=== PATIENT | male | born 1940 | race Caucasian/White ===

== ENCOUNTER 2019-03-11 09:24 | Observation (INO) | payer MEDICARE ==
[~2019-03-11] VITALS: Ht 180.3 cm; Wt 91.5 kg
--- OUTSIDE RECORDS SUMMARY | ~2019-03-11 | XMS | Clinical Summary ---
Demographics + + + | Address | [address] | | | [place] [address] | + + + | Home Phone | | + + + | Preferred Language | Unknown | + + + | Marital Status | | + + + | Pentecostal Affiliation | 1077 | + + + | Race | Unknown | + + + | Ethnic Group | Unknown | + + + Author + + + | Author | [facility] | | | and [place]ana | + + + | Organization | [facility] | | | and [...] Team Providers + +------+ + | Care Career Technical Counselor Name | Role | Phone | + +------+ + | Ramon Mora DO | PP | Unavailable | + +------+ + Allergies + + + + + + | Active Allergy | Reactions | Severity | Noted | Comments | | | | | Date | | + + + + + + | Acetaminophen | Hives | | 1220 | | | | | | 12 [...] mg by mouth | | 0 | 09/ | | Activ | | (PRINIVIL, ZESTRIL) | Daily. | | | 320 | | e | | 20 mg tablet | | | | 12 | | | + + + +---------+------+------+-------+ | AEROCHAMBER Z-STAT | Use as directed. | | 0 | 05/1 | | Activ | | PLUS (AEROCHAMBER) | | | | 20 | | e | | MISC | [...] | 06/23 | | Activ | | (ZOCOR) 40 mg tablet | Daily. | | | 01/09 | | e | | | | [...] lungs 2 times | Inhaler | | 01/09 | | e | | l (SYMBICORT) [...] + + + + | Name | Dates Previously Given | Next Due | + + + [...] + +---------+ + | Alcohol Use | Drinks/We | oz/Week | Comments | | | ek | | | + + +---------+ + | No [...] recent travel history available. | + + Last Filed Vital Signs + + + + | Vital Sign | Reading | Time Taken | + + + + | Blood Pressure | 128/64 | 08/12/20151035 PDT | + + + + | Pulse | 82 | 08/12/20151035 PDT | + + + + | Temperature | 37 C (98.6 F) | 08/12/20151035 PDT | + + + + | Respiratory Rate | 16 | 08/12/20151035 PDT | + + + + | Oxygen Saturation | 96% | 08/12/20151035 PDT | + + + + | Inhaled Oxygen | - | - | | Concentration | | | + + + + | Weight | 96.6 kg (213 lb) | 08/12/20151035 PDT | + + + + | Height | 180.3 cm (5' 11") | 08/12/20151035 PDT | + + + + | Body Mass Index | 29.71 | 08/12/20151035 PDT | + + + + Plan of Treatment + + + + + | Health Maintenance | Due Date | Last Done | Comments | + + + + + | Vaccine: | | | | | Dtap/Tdap/Td (1 - | 8 | | | | Tdap) | | | | + + + + + | Vaccine: Zoster (1 | | | | | of 2) | 9 | | | + + + + + | Primary Care | | 08/12/2015, 01/21/2015, | | | Outreach (Intense | 6 | 07/24/2014, Additional history | | | Risk) | | exists | | + + + + + | Vaccine: Influenza | | 07/07/2014, 07/25/2013, | | | (Season Ended) | 9 | 07/12/2012 | | + + + + + | Vaccine: | Completed | 01/21/2015, 10/11/2009 | | | Pneumococcal 65+ | | | | | Low/Medium Risk | | | | + + + [...] +--------+ +---------+--------+ | MEDICARE | MEDICA | [id number] | 10/23/19 | [phone] | | Medica | | | RE | | 13-Pre | 5 | | re | | | PART A | | sent | | | | | | AND B | | | | | | + +--------+ +--------+ +---------+--------+ | [employer] | TRANSA | [id number] | 11/23/19 | | | Indemn | [...] | 11/06/ | | [address] | | | al/Fam | | 1941 | [phone] | [place] [address] | | | elizabeth | | | 9 (Home) | | + +--------+ +--------+ + + Advance Directives Patient has advance care planning documents on file. For more information, please contact:[facility] [address]
--- OUTSIDE RECORDS SUMMARY | ~2019-03-11 | XMS | Clinical Summary ---
Demographics + + + | Address | [address] | | | [place] [address] | + + + | Home Phone | | + + + | Preferred Language | Unknown | + + + | Marital Status | | + + + | Mandaen Affiliation | 1077 | + + + | Race | Unknown | + + + | Ethnic Group | Unknown | + + + Author + + + | Author | [facility] | | | and [place]ana | + + + | Organization | [facility] | | | and Shaneana [...] Team Providers + +------+ + | Care Vision Impaired Teacher Name | Role | Phone | [...] +--------+ +---------+--------+ | MEDICARE | MEDICA | [id number] | 10/23/19 | [phone] | | Medica | | | RE | | 13-Pre | 5 | | re | | | PART A | | sent | | | | | | AND B | | | | | | + +--------+ +--------+ +---------+--------+ | [employer] | TRANSA | [id number] | 11/23/19 | | | Indemn | [...] | 1941 | [phone] | [place] [address] | | | elizabeth | | | 9 (Home) | | + +--------+ +--------+ + + Advance Directives Patient has advance care planning documents on file. For more information, please contact:[facility] [place] [address]
--- OUTSIDE RECORDS SUMMARY | ~2019-03-11 | XMS | Clinical Summary ---
Demographics + + + | Address | [address] | | | [place] [address] | + + + | Home Phone | | + + + | Preferred Language | Unknown | + + + | Marital Status | | + + + | Yazidism Affiliation | 1077 | + + + | Race | Unknown | + + + | Ethnic Group | Unknown | + + + Author + + + | Author | [facility] | | | and [place]ana | + + + | Organization | [facility] | | | and Shaneana [...] Team Providers + +------+ + | Care Finishing Lab Technician Name | Role | Phone [...] +--------+ +---------+--------+ | MEDICARE | MEDICA | [id number] | 10/23/19 | [phone] | | Medica | | | RE | | 13-Pre | 5 | | re | | | PART A | | sent | | | | | | AND B | | | | | | + +--------+ +--------+ +---------+--------+ | [employer] | TRANSA | [id number] | 11/23/19 | | | Indemn | [...] | 1941 | [phone] | [place] [address] | | | elizabeth | | | 9 (Home) | | + +--------+ +--------+ + + Advance Directives Patient has advance care planning documents on file. For more information, please contact:[facility] [place] [address]
[~2019-03-11 09:24] MED LIST: ASPIRIN EC81 MG PO; CLINDAMYCIN HC150 MG PO; IPRAT-ALBUT 0.5-3 ML INH; LISINOPRIL20 MG PO; METOPROLOL SUCC25 MG PO; OFLOXACIN10 ML OS; PREDNISOLONE ACE5 ML OS; PROAIR HFA8.5 GM INH; SIMVASTATIN20 MG PO; SYMBICORT 16010.2 GM INH
--- NOTE | 2019-03-11 16:58 | NUR ---
New admit to the floor. Pt awake, alert and oriented x3. Pt transitioned to bed without difficulty. Pt denies sob and or chest pain. Pt reports sob with ambulation. VS taken and are stable. Pt denies needs at this time. Call light within reach. No needs.
--- NOTE | 2019-03-11 17:04 | NUR ---
Nikhilm patch declined by pt. He states "I do not want it".
--- NOTE | 2019-03-11 17:19 | EKG ---
[facility] [address] [place] [address] Signed Normal sinus rhythm Right bundle branch block Left anterior fascicular block Bifascicular block Septal infarct , age undetermined Cannot rule out Inferior infarct (masked by fascicular block?) , age undetermined Abnormal ECG No previous ECGs available Confirmed by MONTSERRAT MIRANDA MD ([id number]) on 03/11/2019 5:19:24 PM Electronically Signed By: MONTSERRAT MIRANDA MD 03/11/19 1719 PATIENT NAME: MARLON PRITCHETT Electrocardiogram DATE OF : 36 PHYSICIAN: MONTSERRAT MIRANDA MD REPORT #: [id number] REPORT IS CONFIDENTIAL AND NOT TO BE RELEASED WITHOUT AUTHORIZATION
[2019-03-11] MEDS ORDERED: SIMVASTATIN40 MG PO (17:51)
[2019-03-11] MEDS ORDERED: SYMBICORT 80-10.2 GM INH (17:53)
[2019-03-11] MEDS ORDERED: METOPROLOL TART25 MG PO (17:54)
--- NOTE | 2019-03-11 18:06 | NUR ---
PT A&OX3. PT ON RA. STANDBY ASSIST TO BATHROOM. BRTHING TX'S. TOLERATING HEART HEALTHY DIET. VOIDING Q/S. VS STABLE. SOB WITH AMBULATION.
--- NOTE | 2019-03-11 18:23 | NUR ---
VS AND I&O'S TAKEN AND DOCUMENTED. PT STATES THAT HE HAS NO NEEDS AT THIS TIME. INFORMED PT TO CALL IF HE NEEDS ANYTHING. CALL LIGHT IS IN REACH.
--- NOTE | 2019-03-11 18:33 | NUR ---
Medications reconciled with pharmacy records and patient interview. I verified that, although not typical, he does take metoprolol tartrate 25mg once daily
--- NOTE | 2019-03-11 19:00 | NUR ---
SHIFT REPORT RECEIVED. PATIENT RESTING IN RECLINER. APPEARS COMFORTABLE. CALL LIGHT IN REACH.
--- NOTE | 2019-03-11 21:12 | NUR ---
EVENING MEDS GIVEN PER ORDER. PATIENT DENIES FEELING SOB AT REST. LUNGS ARE COARSE AND DIM THROUGHOUT. O2 SAT 90% ON RA. ENOCURAGED COUGH AND DEEP BREATH. PATIENT DENIES PAIN OR GI UPSET. TOLERATING DIET. 1+ EDEMA NOTED IN LEANNE LOWER EXTREMITITES. REDNESS NOTED ON PATIENT'S LEFT EYE, HE DENIES DISCOMFORT. REVIEWED PLAN OF CARE. NO QUESTIONS OR NEEDS AT THIS TIME.
--- NOTE | 2019-03-12 00:10 | NUR ---
RT IN ROOM FOR NEB TREATMENT. PATIENT REPORTS HAVING BEEN SLEEPING OFF AND ON. DENIES ANY NEEDS.
--- NOTE | 2019-03-12 03:50 | NUR ---
PATIENT APPEARED TO BE SLEEPING SOUNDLY. WOKE EASILY TO VOICE. PATIENT DENIES FEELING SOB. LUNG SOUND CONTINUE TO BE COARSE THROUGHOUT. RT IN FOR SCHEDULED NEB TREATMENT. PATIENT DENIES ANY FURTHER NEEDS.
--- NOTE | 2019-03-12 05:52 | NUR ---
PATIENT SLEPT MOST OF THE SHIFT. VS STABLE. SCHEDULED NEBS. PATIENT TOLERATING ROOM AIR AT REST AND WITH AMBULATION IN THE ROOM. LUNGS ARE COARSE THROUGHOUT. NONPRODUCTIVE COUGH NOTED. NO PAIN. SBA FOR AMBULATION. IV SL.
--- NOTE | 2019-03-12 07:41 | NUR ---
Pt awake, alert and oriented x3. Pt denies sob and chest pain at this time. Pt is on ra, resp even and non labored. Personal supplies and call light within reach.
--- NOTE | 2019-03-12 08:02 | NUR ---
PATIENT UP TO CHAIR FOR BREAKFAST, SBA. CALL LIGHT IN REACH. NO FURTHER NEEDS AT THIS TIME.
--- NOTE | 2019-03-12 09:48 | NUR ---
PATIENT UP FOR WALK WITH DR. TULIO ALEXANDER GIVEN. CALL LIGHT IN REACH. NO FURTHER NEEDS AT THIS TIME.
[2019-03-12] MEDS ORDERED: AZITHROMYCIN500 MG PO (09:55)
[2019-03-12] MEDS ORDERED: PREDNISONE20 MG PO (09:56)
== END 2019-03-12 11:45 | disposition home or self-care (01) ==
LOC: ED 09:24 → MS 09:26
PROVIDERS: ADMIT Internal Medicine
DX: J44.1 Chronic obstructive pulmonary disease with (acute) exacerbation (principal); F17.210 Nicotine dependence, cigarettes, uncomplicated; I47.1 Supraventricular tachycardia; I10 Essential (primary) hypertension; E78.5 Hyperlipidemia, unspecified; I38 Endocarditis, valve unspecified; Z88.5 Allergy status to narcotic agent; Z88.1 Allergy status to other antibiotic agents; Z79.82 Long term (current) use of aspirin; Z79.51 Long term (current) use of inhaled steroids; Z79.899 Other long term (current) drug therapy
CPT/HCPCS: 71045; 80053; 83735; 83880; 84484; 85025; 93005; 93010; 94640; 94667; 94668; 96365; 96367; 96375; 96376; 99285-25; 99406; G0378; J0456; J0696; J2930; J7060

== ENCOUNTER 2019-04-26 18:19 | Emergency (ER) | payer MEDICARE, OTHER ==
[~2019-04-26] VITALS: Ht 180.3 cm; Wt 91.5 kg
[~2019-04-26 18:19] MED LIST changes: +AZITHROMYCIN500 MG PO; +METOPROLOL TART25 MG PO; +PREDNISONE20 MG PO; +SIMVASTATIN40 MG PO; +SYMBICORT 80-10.2 GM INH
[2019-04-26] MEDS ORDERED: OXYCODONE HCL5 MG PO (19:56)
== END 2019-04-26 20:13 | disposition home or self-care (01) ==
LOC: ED 18:19
DX: S20.221A Contusion of right back wall of thorax, initial encounter (principal); F17.200 Nicotine dependence, unspecified, uncomplicated; J44.9 Chronic obstructive pulmonary disease, unspecified; Z90.49 Acquired absence of other specified parts of digestive tract; Z88.5 Allergy status to narcotic agent; Z88.6 Allergy status to analgesic agent; Z88.1 Allergy status to other antibiotic agents; Z79.52 Long term (current) use of systemic steroids; Z79.82 Long term (current) use of aspirin; Z79.899 Other long term (current) drug therapy; W01.0XXA Fall on same level from slipping, tripping and stumbling without subsequent striking against object, initial encounter
CPT/HCPCS: 71046; 99283-25

== ENCOUNTER 2019-09-07 09:42 | Emergency (ER) | payer MEDICARE, OTHER ==
[~2019-09-07] VITALS: Ht 180.3 cm; Wt 87.9 kg
--- OUTSIDE RECORDS SUMMARY | ~2019-09-07 | XMS | Encounter Summary ---
Demographics + + + | Address | [address] | | | [place] [address] | + + + | Home Phone | | + + + | Preferred Language | Unknown | + + + | Marital Status | | + + + | Rastafari Affiliation | 1077 | + + + | Race | Unknown | + + + | Ethnic Group | Unknown | + + + Author + + + | Author | [facility] | | | and Shaneana | + + + | Organization | [facility] | | | and [place] | + + + | Address | Unknown | + + + | Phone | Unavailable | + + + Support + + +---------+ + | Name | Relationship | Address | Phone | + + +---------+ + | Jaciel Bright | ECON | Unknown | | + + +---------+ + Care Team Providers + +------+ + | Care City Surveyor Name | Role | Phone | + +------+ + | Ramon Mora DO | PCP | | + +------+ + Reason for Visit + + + | Reason | Comments | + + + | Follow-up | | + + + Encounter Details +--------+---------+ + + + | Date | Type | Department | Care Team | Description | +--------+---------+ + + + | 01/23/ | Office | [facility] [place] | [place], | COPD (chronic | | 2014 | Visit | PULMONARY [address] | Katherin Manrique MD | obstructive | | | | [place], | | pulmonary disease) | | | | [place] [address] | | (Primary Dx); | | | | [phone] | | Nocturnal hypoxemia; | | | | | | Polycythemia (HCC); | | | | | | Impaired fasting | | | | | | glucose; Tobacco | | | | | | abuse | +--------+---------+ + + + Social History + + + +--------+------+ | Tobacco Use | Types | Packs/Day | Years | Date | | | | | Used | | + + + +--------+------+ | Current Every Day | Cigarettes | 1.5 | 58 | | | Smoker | | | | | + + + +--------+------+ + +---+---+---+ | Smokeless Tobacco: | | | | | Never Used | | | | + +---+---+---+ + + | Comments: Smoking 1 ppd right now | + + + + +---------+ + | Alcohol Use | Drinks/Week | oz/Week | Comments | + + +---------+ + | No | | | | + + +---------+ + + + + | Sex Assigned at | Date Recorded | | | | + + + | Not on file | | + + + + + + + | Job Start Date | Occupation | Industry | + + + + | Not on file | Not on file | Not on file | + + + + + + + + | Travel History | Travel Start | Travel End | + + + + + + | No recent travel history available. | + + documented as of this encounter Last Filed Vital Signs + + + + + | Vital Sign | Reading | Time Taken | Comments | + + + + + | Blood Pressure | 160/58 | 01/23/2014 12:55 PM | | | | | PDT | | + + + + + | Pulse | 85 | 01/23/2014 12:55 PM | | | | | PDT | | + + + + + | Temperature | - | - | | + + + + + | Respiratory Rate | - | - | | + + + + + | Oxygen Saturation | 97% | 01/23/2014 12:55 PM | | | | | PDT | | + + + + + | Inhaled Oxygen | - | - | | | Concentration | | | | + + + + + | Weight | 96.7 kg (213 lb 3.2 | 01/23/2014 12:55 PM | | | | oz) | PDT | | + + + + + | Height | 180.3 cm (5' 11") | 01/23/2014 12:55 PM | | | | | PDT | | + + + + + | Body Mass Index | 29.74 | 01/23/2014 12:55 PM | | | | | PDT | | + + + + + documented in this encounter Patient Instructions Patient Instructions Katherin Madden MD - 01/23/2014 1:24 PM PDTStay on Symbicort t wice daily. Okay to switch nebulizer to as needed only if you are doing well. I agree with starting Chantix. If you are depressed or anxious, you need to stop the Chanti x immediately and call us. If you have suicidal thoughts, you need to go to the emergency ro om. You need to set a quit date about 2 weeks after starting this medication. On that day, you should plan on getting rid of everything in your house that reminds you of smoking, such as cigarettes and ashtrays. documented in this encounter Progress Notes Katherin Madden MD - 01/23/2014 1:10 PM PDTFormatting of this note might be tylere nt from the original. Pulmonary Follow Up HPI Louie Méndez is a 73 y.o. male patient of Ramon Mora here today for follow up of C OPD. At their last visit, we had continued him on Symbicort and Duonebs. He notes that he was do ing well until last week. His sister , and he had to make a hurried trip to [facility]. He is th only one in the family who smokes, and so he smoked significantly less. He walk ed about a mile every day. He used his nebulizer only about twice daily. He notes he felt re ally good. He assumes this is because he was smoking so little. He notes that every time he has spent a significant time around non smokers, he has not smo ked. When he does this, he has not had issues with needing to smoke. He also notes that when he is downstairs in his basement working, he does not have the desire to go upstairs to get his cigarettes to smoke one. Currently he is able to walk 1/2 mile, rest for a few minutes, and walk 1/2 mile further at his own pace on level ground. He is exercising regularly. He is typically walking regularly . He does not cough chronically, and does not produce mucous. He has not had hemoptysis. He has been evaluated for nocturnal oxygen and does not use it. His last overnight oximetry showed that he had some minimal desaturations, and I did recommend 1L at night, but he opte d to remain off this. Past Medical History Past Medical History Diagnosis Date COPD (chronic obstructive pulmonary disease) (HCC) Hyperlipidemia Hypertension Bundle branch block Tobacco use disorder Dyslipidemia Demand ischemia of myocardium (HCC) Supraventricular tachycardia severe Polycythemia (HCC) Past Surgical History Past Surgical History Procedure Date Appendectomy 2003 Colonoscopy Social History: History Social History Marital Status: Spouse Name: N/A Number of Children: N/A Years of Education: N/A Social History Main Topics Smoking status: Current Every Day Smoker -- 1.5 packs/day for 60 years Types: Cigarettes Smokeless tobacco: Never Used Comment: Smoking 1 ppd right now Alcohol Use: No Drug Use: None Sexually Active: None Other Topics Concern None Social History Narrative None Allergies: Allergies Allergen Reactions Acetaminophen Codeine Sulfate Hydrocodone Tramadol Medications: Outpatient Encounter Prescriptions as of 01/23/2014 Medication Sig Dispense Refill AEROCHAMBER Z-STAT PLUS (AEROCHAMBER) [facility] [place] Use as directed. albuterol (PROAIR HFA) 90 mcg/puff inhaler Inhale 2 puffs every 4 hours as needed for s hortness of breath 1 Inhaler 2 albuterol-ipratropium (DUONEB) 2.5-0.5 mg/3 mL SOLN Take 3 mLs by nebulization Every 4 hours. aspirin (ASPIRIN LOW DOSE) 81 MG tablet Take 81 mg by mouth Daily. budesonide-formoterol (SYMBICORT) 80-4.5 mcg/puff inhaler Inhale 2 puffs into the lungs 2 times daily. 1 Inhaler 5 Ibuprofen-Diphenhydramine Cit (IBUPROFEN PM) 200-38 MG TABS Take 2 tablets by mouth nig htly. lisinopril (PRINIVIL, ZESTRIL) 20 mg tablet Take 20 mg by mouth Daily. metoprolol tartrate (LOPRESSOR) 25 mg tablet Take 25 mg by mouth Daily. simvastatin (ZOCOR) 40 mg tablet Take 20 mg by mouth Daily. Review of Systems Constitutional: Denies fever, chills, sweats, and change in weight. Eyes: Denies vision change and eye irritation. ENT: Denies earache, decreased hearing, nasal congestion, nosebleeds, sore throat, and carolee rseness. Resp: See HPI. CV: Denies chest pain, palpitations, syncope, and peripheral edema. GI: Denies heartburn, nausea, vomiting, and abdominal pain. : Denies difficulty emptying bladder and nocturia. Objective BP 160/58 | Pulse 85 | Ht 1.803 m (5' 11") | Wt 96.707 kg (213 lb 3.2 oz) | BMI 29.75 kg/m2 | SpO2 97% General Appearance: Alert, cooperative, no distress, appears stated age Head: Normocephalic, without obvious abnormality, atraumatic Eyes: PERRL, conjunctiva clear, no scleral icterus, EOM's intact Ears: Normal TM's, external auditory canals, slightly diminished acuity Nose: Nares normal, septum midline, mucosa normal Mouth: No oral lesions or exudate Neck: Supple, symmetrical, no adenopathy Lungs: No accessory muscle use, breath sounds are diminished bilaterally with prolongatio n of the expiratory phase, no wheezes, crackles or rhonchi Chest Wall: No deformity Heart: Regular rate and rhythm, no murmur, rub or gallop Abdomen: Soft, non-tender, non-distended, obese Extremities: No cyanosis, clubbing, or edema Pulses: Radial pulses 2+ and symmetric Skin: Warm and dry Lymph nodes: Cervical and supraclavicular nodes normal Data: Overnight oximetry was done on room air on August 02, 2013 and was reviewed and interprete d in clinic today. It shows he spent 26.9 with a saturation less than 89 %. Labs 07/26/13: Fasting glucose 104 LFTs normal Hct 55 Immunization History Administered Date(s) Administered INFLUENZA, PRESERVATIVE FREE IM 07/12/2012, 07/25/2013 Pneumococcal (Adult) 10/11/2009 Assessment 1. COPD (chronic obstructive pulmonary disease) - Improved with smoking abatement. He is no w interested in quitting. We will continue Symbicort and can switch nebulizers to as needed. 2. Nocturnal hypoxemia (HCC) - Declined oxygen therapy. 3. Polycythemia (HCC) - Possibly related to his low oxygen at night, but this was fairly mi ld, and to his lung disease. I did fax results to Dr. Mora. 4. Impaired fasting glucose - This showed a minimal elevation. He is now starting to exerci se more. Further follow up with PCP. 5. Tobacco abuse- He very much wants to quit. We discussed strategies today. He will start Chantix and use these. Plan 1.ContinueSymbicort bid. 2.Change Duonebs to as needed. 3.I agree with starting Chantix. 4. He should set a firm quit date and get rid of all smoking related items items on that da te. 5. We discussed reviewing his habits and changing them. He was advised to call if new pulmonary symptoms were to develop. Return to clinic in 6 months, or sooner with concerns. CC: Ramon Mora Portions of this report were transcribed using voice recognition software. Every effort wa s made to ensure accuracy; however, inadvertent computerized canceling and cutting control clerk errors may be pre sent. Electronically signed by: Katherin Madden MD 01/23/2014 13:10 documented in t his encounter Plan of Treatment Not on filedocumented as of this encounter Visit Diagnoses + + | Diagnosis | + + | COPD (chronic obstructive pulmonary disease) - Primary Chronic airway obstruction, | | not elsewhere classified | + + | Nocturnal hypoxemia Hypoxemia | + + | Polycythemia Polycythemia vera | + + | Impaired fasting glucose | + + | Tobacco abuse Tobacco use disorder | + + documented in this encounter
--- OUTSIDE RECORDS SUMMARY | ~2019-09-07 | XMS | Encounter Summary ---
Demographics + + + | Address | [address] | | | [place] [address] | + + + | Home Phone | | + + + | Preferred Language | Unknown | + + + | Marital Status | | + + + | Evangelical Affiliation | 1077 | + + + | Race | Unknown | + + + | Ethnic Group | Unknown | + + + Author + + + | Author | [facility] | | | and [place]ana | + + + | Organization | [facility] | | | and [place]ana [...] Team Providers + +------+ + | Care Thermal Cutting Machine Operator Name | Role | Phone | + +------+ + | Ramon Mora DO | PCP | | + +------+ + Encounter Details +--------+ + + + + | Date | Type | Department | Care Team | Description | +--------+ + + + + | 10/26/ | Orders Only | [facility] [place] | Aracelis Muir, | COPD (chronic | | 2012 | | PULMONARY [address] | RN | obstructive | | | | [place], | | pulmonary disease) | | | | [place] [address] | | ([facility]) | | | | [phone] | | | +--------+ + + + + Social History + + + +--------+------+ | Tobacco Use | Types | Packs/Day | Years | Date | | | | | Used | | + + + +--------+------+ | Current Every Day | Cigarettes | 0.2 | 58 | | | Smoker | | | | | + + + +--------+------+ + +---+---+---+ | Smokeless Tobacco: | | | | | Never Used | | | | + +---+---+---+ + + | Comments: down to 3 cigarettes per day | + + + + +---------+ + | Alcohol Use | Drinks/Week | oz/Week | Comments | + + +---------+ + | Not Asked | | | | + + +---------+ [...] + + documented as of this encounter Plan of Treatment Not on filedocumented as of this encounter Visit Diagnoses + + | Diagnosis | + + | COPD (chronic obstructive pulmonary disease) (HCC) Chronic airway obstruction, not | | elsewhere classified | + + documented in this encounter"
--- OUTSIDE RECORDS SUMMARY | ~2019-09-07 | XMS | Encounter Summary ---
Demographics + + + | Address | [address] | | | [place] [address] | + + + | Home Phone | | + + + | Preferred Language | Unknown | + + + | Marital Status | | + + + | Anabaptism Affiliation | 1077 | + + + | Race | Unknown | + + + | Ethnic Group | Unknown | + + + Author + + + | Author | [facility] | | | and Shaneana | + + + | Organization | [facility] | | | and Shaneana [...] Team Providers + +------+ + | Care Animal Researcher Name | Role | Phone | + [...] Description | +--------+---------+ + + + | 10/11/ | Office | [facility] | [place], | COPD (chronic | | 2011 | Visit | PULMONARY [address] | Katherin Manrique MD | obstructive | | | | [place], | | pulmonary disease) | | | | [place] [address] | | (HCC) (Primary Dx); | | | | [phone] | | Tobacco abuse; | | | | | | Snoring; Hypoxemia | +--------+---------+ + + + Social History [...] | | + +---+---+---+ + + | Tobacco Cessation: Ready to Quit: Yes; Counseling Given: Yes | | Comments: down to 3 cigarettes per [...] + + + | Blood Pressure | 140/60 | 10/11/2012 11:05 AM | | | | | PST | | + + + + + | Pulse | 89 | 10/11/2012 11:05 AM | | | | | PST | | + + + + + | Temperature | - | - | | + + + + + | Respiratory Rate | - | - | | + + + + + | Oxygen Saturation | 98% | 10/11/2012 11:05 AM | | | | | PST | | + + + + + | Inhaled Oxygen | - | - | | | Concentration | | | | + + + + + | Weight | 104.3 kg (230 lb) | 10/11/2012 11:05 AM | | | | | PST | | + + + + + | Height | 181.6 cm (5' 11.5") | 10/11/2012 11:05 AM | | | | | PST | | + + + + + | Body Mass Index | 31.63 | 10/11/2012 11:05 AM | | | | | PST | | + + + + + documented in this encounter Patient Instructions Patient Instructions Katherin Madden MD - 10/11/2012 12:07 PM Gamaliel Alexander to fo ur time a day as needed only. Start Advair 1 puff twice a day scheduled. Rinse mouth out after use. HOW TO QUIT SMOKING Smoking is one of the hardest habits to break. About half of all those who have ever smoked have been able to quit, and most of those (about 70%) who still smoke want to quit. Here ar e some of the best ways to stop smoking. KEEP TRYING: It takes most smokers about 8 tries before they are finally able to fully quit. So, the mor e often you try and fail, the better your chance of quitting the next time! So, don't give u p! GO COLD TURKEY: Most ex-smokers quit cold turkey. Trying to cut back gradually doesn't seem to work as well , perhaps because it continues the smoking habit. Also, it is possible to fool yourself by i nhaling more while smoking fewer cigarettes. This results in the same amount of nicotine in your body! GET SUPPORT: Support programs can make an important difference, especially for the heavy smoker. These g roups offer lectures, methods to change your behavior and peer support. Call the [facility] Quitline for more information. 549-RATU-YLT (385-904-2496). Low-cost or free programs are offered by many hospitals, local chapters of the [place] [employer] (799-172-9437) a nd the [place] [employer] (702-252-9808). Support at home is important too. Non-smokers can help by offering praise and encouragement. If the smoker fails to quit, encourage them to try again! NIAY-FBR-DBNIYQL MEDICINES: For those who can't quit on their own, Nicotine Replacement Therapy (NRT) may make quitting much easier. Certain aids such as the nicotine patch, gum and lozenge are available without a prescription. However, it is best to use these under the guidance of your doctor. The ski n patch provides a steady supply of nicotine to the body. Nicotine gum and lozenge gives tem porary bursts of low levels of nicotine. Both methods take the edge off the craving for ciga rettes. WARNING: If you feel symptoms of nicotine overdose, such as nausea, vomiting, dizzin ess, weakness, or fast heartbeat, stop using these and see your doctor. PRESCRIPTION MEDICINES: After evaluating your smoking patterns and prior attempts at quitting, your doctor may offe r a prescription medicine such as bupropion (Zyban, Wellbutrin), varenicline (Chantix, [place] ix), a niocotine inhaler or nasal spray. Each has its unique advantage and side effects whic h your doctor can review with you. HEALTH BENEFITS OF QUITTING: The benefits of quitting start right away and keep improving the longer you go without smok in minutes: blood pressure and pulse return to normal 8 hours: oxygen levels return to normal 2 days: ability to smell and taste begins to improve as damaged nerves start to regrow 2-3 weeks: circulation and lung function improves 1-9 months: decreased cough, congestion and shortness of breath; less tired 1 year: risk of heart attack decreases by half 5 years: risk of lung cancer decreases by half; risk of stroke becomes the same as a non -smoker For information about how to quit smoking, visit the following links: National Cancer [place] , Clearing the Air, Quit Smoking Today - an online yu klet. http://www.smokefree.gov/pubs/clearing_the_air.pdf Smokefree.gov http://smokefree.gov/ QuitNet http://www.quitnet.com/ 6390-3703 Manuel Garcia, [address] [place] [address]. All rights reserve d. This information is not intended as a substitute for professional medical care. Always fo llow your healthcare professional's instructions. documented in this encounter Progress Notes Katherin Madden MD - 10/11/2012 11:38 AM PSTFormatting of this note might be differe nt from the original. Pulmonary Follow Up Note HPI Louie Méndez is a 71 y.o. male patient of Ramon Mora here today for follow up of C OPD. He was recently hospitalized at [facility] for 2 days and was discharged on Sep. He has not been seen here in about 2 years, but was arranged to be seen in [facility] after his discharge. He reports that he is doing great since his discharge and is back to his baseline state. He had not followed up due to his having recurrent cancer. He was discharged on oxygen, which was new to him. He was taken off of the daytime oxygen b amber Davison yesterday. He was not walked in clinic yesterday by Dr. Davison or his staff to see if he desaturated with exertion. He was apparently left on nocturnal oxygen only. He guillermo arently did not write an order to the home oxygen company, which is [employer]. He also apparen tly stopped his diltiazem, and decreased his metoprolol dose. He reports that he is not on prednisone and off of the antibiotics. He is still on the nebu lizer, which is Duonebs, and is using this every 4 hours. He is not using his Combivent sabra use he realized that this is the same medication. He was using both about 2 hours apart. He has stopped using the Pulmicort because he did not feel like that was helping him. He used i t for a year previously. He does have prescription coverage, but reports that he is in the onwv hole right now. Currently they are able to walk a couple hundred feet at their own pace on level ground. He is exercising regularly. He does stay active at home doing the housework. He does have some type of exercise equipment at home that he will use a few times a week for 15-30 minutes. He does cough chronically, and does produce mucous. He does not pay attention to the color. He has not had hemoptysis. He has not been evaluated for nocturnal oxygen and does use it. They are currently on 2 LPM at night. He reports good compliance. He has not had an overnight oximetry done. He is down to three cigarettes a day. He is planning to use the patches to quit. He notes t he generic patches at [facility] work well for him. He notes that this brand does not give him a rash. Past Medical History Past Medical History Diagnosis Date COPD (chronic obstructive pulmonary disease) Hyperlipidemia Hypertension Bundle branch block Tobacco use disorder Dyslipidemia Demand ischemia of myocardium Supraventricular tachycardia severe Past Surgical History Past Surgical History Procedure Date Appendectomy 2004 Colonoscopy Social History: History Social History Marital Status: Spouse Name: N/A Number of Children: N/A Years of Education: N/A Social History Main Topics Smoking status: Current Everyday Smoker -- 0.2 packs/day for 60 years Types: Cigarettes Smokeless tobacco: Never Used Comment: down to 3 cigarettes per day Alcohol Use: None Drug Use: None Sexually Active: None Other Topics Concern None Social History Narrative None Allergies: Allergies Allergen Reactions Acetaminophen Codeine Sulfate Hydrocodone Tramadol Medications: Outpatient Encounter Prescriptions as of 10/11/2012 Medication Sig Dispense Refill metoprolol tartrate (LOPRESSOR) 25 mg tablet Take 25 mg by mouth Daily. albuterol-ipratropium (DUONEB) 2.5-0.5 mg/3 mL SOLN Take 3 mLs by nebulization Every 4 hours. albuterol-ipratropium (COMBIVENT) 103-18 mcg/puff inhaler Inhale 2 puffs into the lungs every 6 hours as needed. simvastatin (ZOCOR) 40 mg tablet Take 20 mg by mouth Daily. aspirin (ASPIRIN LOW DOSE) 81 MG tablet Take 81 mg by mouth Daily. lisinopril (PRINIVIL, ZESTRIL) 20 mg tablet Take 20 mg by mouth Daily. AEROCHAMBER Z-STAT PLUS (AEROCHAMBER) MISC Use as directed. Review of Systems Constitutional: Denies fever, chills, sweats, and change in weight. Sleep: He is not sure is he is snoring a lot. Eyes: Denies vision change and eye irritation. ENT: Denies earache, decreased hearing, nasal congestion, nosebleeds, sore throat, and ho arseness. Resp: See HPI. CV: Denies chest pain, palpitations, and syncope. Has some ankle edema. GI: Denies heartburn, nausea, vomiting, and abdominal pain. : Denies difficulty emptying bladder and nocturia. Objective BP 140/60 | Pulse 89 | Ht 1.816 m (5' 11.5") | Wt 104.327 kg (230 lb) | BMI 31.63 kg/m2 | S pO2 98% General Appearance: Alert, cooperative, no distress, appears stated age Head: Normocephalic, without obvious abnormality, atraumatic Eyes: PERRL, conjunctiva clear, no scleral icterus, EOM's intact Ears: Normal TM's, external auditory canals, and acuity Nose: Nares normal, septum midline, mucosa normal, no drainage Mouth: Normal dentition; no oral lesions or exudate Neck: Supple, symmetrical, no adenopathy Lungs: No accessory muscle use, breath sounds are diminished bilaterally with prolongatio n of the expiatory phase, no wheezes, crackles or rhonchi Chest Wall: No deformity Heart: Regular rate and rhythm, no murmur, rub or gallop Abdomen: Soft, non-tender, non-distended, obese Extremities: No cyanosis, clubbing, or edema Pulses: Radial pulses 2+ and symmetric Skin: Warm and dry Lymph nodes: Cervical and supraclavicular nodes normal Neurologic: Gait normal Data: Up to date on influenza and pneumococcal vaccine. Assessment /Plan Mr. Méndez was seen today for follow-up of COPD after recent admission for an exacerbatio n. Copd (chronic obstructive pulmonary disease) He had a recent exacerbation after being off all of his medications. He did not notice symp tomatic improvement after a year of Pulmicort and thus got frustrated and discontinued the m edication. We had run in to issues getting Advair approved by his insurance previously. I di scussed the importance of remaining on long acting medication to prevent exacerbations such as he just had. If we cannot get Advair approved this time, we can try to get him Spiriva. I have prescribed Advair as this will provide him decreased exacerbations and also symptomati c relief, though Spiriva should also provide him similar benefits. I also discussed using the Combivent and Duoneb four times a day in combination and no more often. - Pulse oximetry titation; Future - Pulse oximetry, overnight study; Future - fluticasone-salmeterol (FLUTICASONE-SALMETEROL) 250-50 mcg/puff diskus inhaler; Inhal e 1 puff into the lungs 2 times daily. Tobacco abuse We discussed the importance of smoking cessation in clinic today. He is more motivated to q uit smoking after his recent hospitalization and is down to minimal smoking at this point. I encouraged use of a cessation aid, and he does plan to use nicotine patches. Snoring He has a history of smoking, but has declined a sleep study due to financial issues and oanh ng overwhelmed with his 's health problems. We will continue to hold off for now. Hypoxemia His portable oxygen was verbally discontinued based on a good resting saturation. We will p erform ambulating oximetry to ensure that he is not desaturating with exertion and also perf orm overnight oximetry on room air as he will need this to qualify for nocturnal oxygen if h is portable oxygen is discontinued. Return to clinic in 3 months. CC: Ramon Mora DO, Shamir Mcnair MD documented in t his encounter Plan of Treatment + + +--------+ + + | Name | Type | Priori | Associated Diagnoses | Order Schedule | | | | ty | | | + + +--------+ + + | Pulse oximetry | Respiratory | Routin | COPD (chronic | 1 Occurrences | | titation | Care | e | obstructive | starting 10/11/2012 | | | | | pulmonary disease) | until 10/11/2013 | | | | | (HCC) | | + + +--------+ + + | Pulse oximetry, | Respiratory | Routin | COPD (chronic | Expected: | | overnight study | Care | e | obstructive | 10/12/2012, Expires: | | | | | pulmonary disease) | 10/11/2013 | | | | | (HCC) | | + + +--------+ + + | Oxygen Therapy | Respiratory | Routin | COPD (chronic | Expected: | | | Care | e | obstructive | 10/16/2012, Expires: | | | | | pulmonary disease) | 10/16/2013 | | | | | (HCC) | | + + +--------+ + + documented as of this encounter Visit Diagnoses + + | Diagnosis | + + | COPD (chronic obstructive pulmonary disease) (HCC) - Primary Chronic airway | | obstruction, not elsewhere classified | + + | Tobacco abuse Tobacco use disorder | + + | Snoring Other dyspnea and respiratory abnormality | + + | Hypoxemia | + + documented in this encounter
--- OUTSIDE RECORDS SUMMARY | ~2019-09-07 | XMS | Encounter Summary ---
Demographics + + + | Address | [address] | | | [place] [address] | + + + | Home Phone | | + + + | Preferred Language | Unknown | + + + | Marital Status | | + + + | Sabianism Affiliation | 1077 | + + + | Race | Unknown | + + + | Ethnic Group | Unknown | + + + Author + + + | Author | [facility] | | | and Shaneana | + + + | Organization | [facility] | | | and Shaneana | [...] Team Providers + +------+ + | Care Stamping Die Maker Name | Role | Phone | + +------+ + | Ramon Mora DO | PCP | | + +------+ + Reason for Visit + + + | Reason | Comments | + + + | Medication Refill | | + + + Encounter Details +--------+--------+ + + + | Date | Type | Department | Care Team | Description | +--------+--------+ + + + | 06/25/ | Refill | [facility] [place] | [place], | Medication Refill | | 2014 | | [address]ULMONARY [address] | Katherin Manrique MD | | | | | [place], | | | | | | [place] [address] | | | | | | [phone] | | | +--------+--------+ + + + [...]
--- OUTSIDE RECORDS SUMMARY | ~2019-09-07 | XMS | Encounter Summary ---
Demographics + + + | Address | [address] | | | [place] [address] | + + + | Home Phone [...] + + | Author | [facility] | | | and Shaneana | + + + | Organization | [facility] | | | and Shaneana [...] Team Providers + +------+ + | Care Gauger Chief Name | Role | Phone | + +------+ + | Ramon Mora DO | PCP | | + +------+ + Encounter Details +--------+ + + + + | Date | Type | Department | Care Team | Description | +--------+ + + + + | 11/26/ | Documentati | [facility] [place] | [place], | | | 2012 | on | PULMONARY [address] | Katherin Manrique MD | | | | | [place], | | | | | | [place] [address] | | | | | | [phone] | | | +--------+ + + + [...] + + documented as of this encounter Progress Notes Aracelis Muir, RN - 11/26/2012 2:30 PM PSTAs the insurance advised that they would onl y provide a temporary supply of Advair 250/[address] Madden will change to Symbicort 80 mcg 2 puffs inhaled twice daily 1 month supply and 5 refills. documented in this encounter Plan of Treatment Not on filedocumented as of this encounter Visit Diagnoses Not on filedocumented in this encounter"
--- OUTSIDE RECORDS SUMMARY | ~2019-09-07 | XMS | Encounter Summary ---
Demographics + + + | Address | [address] | | | [place] [address] | + + + | Home Phone | | + + + | Preferred Language | Unknown | + + + | Marital Status | | + + + | Jain Affiliation | 1077 | + + + | Race | Unknown | + + + | Ethnic Group | Unknown | + + + Author + + + | Author | [facility] | | | and Shaneana | + + + | Organization | [facility] | | | and Shaneana | [...] Team Providers + +------+ + | Care Dental Lab Technician Name | Role | Phone | + [...] Description | +--------+--------+ + + + | 08/06/ | Refill | [facility] [place] | [place], | Medication Refill | | 2013 | | [address]ULMONARY [address] | Katherin Manrique MD | | | | | [place], | | | | | | [place] [address] | | | | | | [phone] | | | +--------+--------+ + + + [...]
--- OUTSIDE RECORDS SUMMARY | ~2019-09-07 | XMS | Encounter Summary ---
Demographics + + + | Address | [address] | | | [place] [address] | + + + | Home Phone | | + + + | Preferred Language | Unknown | + + + | Marital Status | | + + + | Temple Affiliation | 1077 | + + + | Race | Unknown | + + + | Ethnic Group | Unknown | + + + Author + + + | Author | [facility] | | | and Shaneana | + + + | Organization | [facility] | | | and Shaneana | [...] Team Providers + +------+ + | Care Dishwasher Name | Role | Phone | + [...] Description | +--------+--------+ + + + | 02/27/ | Refill | [facility] [place] | [place], | Medication Refill | | 2012 | | [address]ULMONARY [address] | Katherin Manrique MD | | | | | [place], | | | | | | [place] [address] | | | | | | [phone] | | | +--------+--------+ + + + Social History + + + +--------+------+ | Tobacco Use | Types | Packs/Day | Years | Date | | | | | Used | | + + + +--------+------+ | Current Every Day | Cigarettes | 0.6 | 60 | | | Smoker | | | | | + + + +--------+------+ + +---+---+---+ | Smokeless Tobacco: | | | | | Never Used | | | | + +---+---+---+ + + | Comments: He has been smoking some. | + + + + +---------+ + [...]
--- OUTSIDE RECORDS SUMMARY | ~2019-09-07 | XMS | Encounter Summary ---
Demographics + + + | Address | [address] | | | [place] [address] | + + + | Home Phone | | + + + | Preferred Language | Unknown | + + + | Marital Status | | + + + | Buddhism Affiliation | 1077 | + + + | Race | Unknown | + + + | Ethnic Group | Unknown | + + + Author + + + | Author | [facility] | | | and Shaneana | + + + | Organization | [facility] | | | and Shaneana | [...] Providers + +------+ + | Care Wood Products Manufacturer Name | Role | Phone | + +------+ + PCP | Unavailable | + +------+ + Encounter Details +--------+ + + + + | Date | Type | Department | Care Team | Description | +--------+ + + + + | 07/05/ | Abstract | [facility] | [facility] | | | 2011 | | Conversion Location | SR | | | | | [phone] | | | +--------+ + + + + Social History + +-------+ +--------+------+ | Tobacco Use | Types | Packs/Day | Years | Date | | | | | Used | | + +-------+ +--------+------+ | Never Assessed | | | | | + +-------+ +--------+------+ + + + | Sex Assigned at [...] + + + | Blood Pressure | 136/72 | 06/28/2011 12:00 AM | | | | | PDT | | + + + + + | Pulse | - | - | | + + + + + | Temperature | - | - | | + + + + + | Respiratory Rate | - | - | | + + + + + | Oxygen Saturation | - | - | | + + + + + | Inhaled Oxygen | - | - | | | Concentration | | | | + + + + + | Weight | 99.8 kg (220 lb) | 06/28/2011 12:00 AM | | | | | PDT | | + + + + + | Height | 181.6 cm (5' 11.5") | 02/28/2011 12:00 AM | | | | | PDT | | + + + + + | Body Mass Index | 30.26 | 02/28/2011 12:00 AM | | | | | PDT | | + + + + + documented in this encounter Plan of Treatment Not on filedocumented as of this encounter Visit Diagnoses Not on filedocumented in this encounter
--- OUTSIDE RECORDS SUMMARY | ~2019-09-07 | XMS | Encounter Summary ---
Demographics + + + | Address | [address] | | | [place] [address] | + + + | Home Phone | | + + + | Preferred Language | Unknown | + + + | Marital Status | | + + + | Druze Affiliation | 1077 | + + + | Race | Unknown | + + + | Ethnic Group | Unknown | + + + Author + + + | Author | [facility] | | | and [place]ana | + + + | Organization | [facility] | | | and [...] Team Providers + +------+ + | Care Business Analysis Consultant Name | Role | Phone | + [...] Manrique MD | | | | | [place], | | | | | | [place] [address] | | | | | | [phone] | | | +--------+--------+ + + + [...]
--- OUTSIDE RECORDS SUMMARY | ~2019-09-07 | XMS | Encounter Summary ---
Demographics + + + | Address | [address] | | | [place] [address] | + + + | Home Phone | | + + + | Preferred Language | Unknown | + + + | Marital Status | | + + + | Scientologist Affiliation | 1077 | + + + | Race | Unknown | + + + | Ethnic Group | Unknown | + + + Author + + + | Author | [facility] | | | and [place] | + + + | Organization | [facility] | | | and [place] [...] Team Providers + +------+ + | Care Software Project Lead Name | Role | Phone | + [...] MD | obstructive | | | | [place], | | pulmonary disease) | | | | [place] [address] | | (HCC) (Primary Dx); | | | | [phone] | | Tobacco abuse; | | | [...] your behavior and peer support. Call the [facility] Quitline for more information. 777-IATQ-WCS ([phone]). Low-cost or free programs are offered by many hospitals, local chapters of the [place] [employer] (934-320-1927) a nd the [place] [employer] (540-564-0488). Support at home is important too. Non-smokers can help by offering praise and encouragement. If the smoker fails to quit, encourage them to try again! XAWE-ITW-BRJTKBC MEDICINES: For those who can't quit on [...] such as bupropion (Zyban, Wellbutrin), varenicline (Chantix, [place] ix), a niocotine inhaler or nasal spray. [...] smoking, visit the following links: National Cancer [place] , Clearing the Air, Quit Smoking Today - an online yu klet. http://www.smokefree.gov/pubs/clearing_the_air.pdf Smokefree.gov http://smokefree.gov/ QuitNet http://www.quitnet.com/ 8992-4264 Manuel Garcia, [address] [place] [address]. All rights reserve d. This information is [...] C OPD. He was recently hospitalized at [facility] for 2 days and was discharged on Sep. He has not been seen here in about 2 years, but was arranged to be seen in [facility] after his discharge. He reports that he [...] to the home oxygen company, which is [employer]. He also apparen tly stopped his diltiazem, [...] but reports that he is in the ondc hole right now. Currently they are able [...] He notes t he generic patches at [facility] work well for him. He notes that [...]
--- OUTSIDE RECORDS SUMMARY | ~2019-09-07 | XMS | Encounter Summary ---
Demographics + + + | Address | [address] | | | [place] [address] | + + + | Home Phone | | + + + | Preferred Language | Unknown | + + + | Marital Status | | + + + | Islam Affiliation | 1077 | + + + | Race | Unknown | + + + | Ethnic Group | Unknown | + + + Author + + + | Author | [facility] | | | and Sahneana | + + + | Organization | [facility] | | | and Shaneana [...] Team Providers + +------+ + | Care Sleeve Sewer Name | Role | Phone | + [...] RN | obstructive | | | | [place], | | pulmonary disease) | | | | [place] [address] | | ([facility]) | | | | [phone] | | | +--------+ + + + [...]
--- OUTSIDE RECORDS SUMMARY | ~2019-09-07 | XMS | Encounter Summary ---
Demographics + + + | Address | [address] | | | [place] [address] | + + + | Home Phone | | + + + | Preferred Language | Unknown | + + + | Marital Status | | + + + | Nondenominational Affiliation | 1077 | + + + | Race | Unknown | + + + | Ethnic Group | Unknown | + + + Author + + + | Author | [facility] | | | and Shaneana | + + + | Organization | [facility] | | | and Shaneana [...] Team Providers + +------+ + | Care Twister Tender Paper Name | Role | Phone | + [...] Description | +--------+--------+ + + + | 02/15/ | Refill | [facility] [place] | Offenstein, | Medication Refill | | 2016 | | [address]MON[address] | Katherin Manrique MD | | | | | [place], | | | | | | [place] [address] | | | | | | [phone] | | | +--------+--------+ + + + [...]
--- OUTSIDE RECORDS SUMMARY | ~2019-09-07 | XMS | Encounter Summary ---
Demographics + + + | Address | [address] | | | [place] [address] | + + + | Home Phone | | + + + | Preferred Language | Unknown | + + + | Marital Status | | + + + | Sabianist Affiliation | 1077 | + + + | Race | Unknown | + + + | Ethnic Group | Unknown | + + + Author + + + | Author | [facility] | | | and Shaneana | + + + | Organization | [facility] | | | and [...] Team Providers + +------+ + | Care Skin Drier Name | Role | Phone | + [...] + + | 08/12/ | Office | [facility] | [place], | COPD (chronic | | 2014 | Visit | [address]ULMONARY [address] | Katherin Manrique MD | obstructive | | | | [place], | | pulmonary disease); | | | | [place] [address] | | 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 He is not exercising regularl y. He did some walking when he went to his niece's wedding. He has done some walking, but no t as much as he would like due to the heat this summer. He has started doing some more walki now that the weather is better. He does not cough chronically, and does not produce mucous. He has not had hemoptysis. He has been evaluated for nocturnal oxygen and does not use it. He has declined this. He quit smoking again 2 weeks ago after having relapsed again. He also travelled to [place] for his niece's wedding and did not [...] None Social History Narrative Lives alone in [place]. His in 2012 from cancer. Allergies: Allergies [...] 492.8 He has qualified for oxygen at [facility] and declines this. G47.36 327.26 3. 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 Plan 1.Continue Symbicort [...] made to ensure accuracy; however, inadvertent computerized boat mechanic errors may be pre sent. Electronically signed [...]
--- OUTSIDE RECORDS SUMMARY | ~2019-09-07 | XMS | Encounter Summary ---
Demographics + + + | Address | [address] | | | [place] [address] | + + + | Home Phone | | + + + | Preferred Language | Unknown | + + + | Marital Status | | + + + | Jew Affiliation | 1077 | + + + | Race | Unknown | + + + | Ethnic Group | Unknown | + + + Author + + + | Author | [facility] | | | and Shaneana | + + + | Organization | [facility] | | | and [...] Team Providers + +------+ + | Care Vinyl Dipper Name | Role | Phone | + +------+ + | Ramon Mora DO | PCP | | + +------+ + Encounter Details +--------+ + + + + | Date | Type | Department | Care Team | Description | +--------+ + + + + | 07/29/ | Orders Only | [facility] | Omarenstein, | Chronic airway | | 2012 | | [address]ULMON[address] | Katherin Manrique MD | obstruction, not | | | | [place], | | elsewhere classified | | | | [place] [address] | | ([facility]) (Primary Dx) | | | | [phone] | | | +--------+ + + + [...] as of this encounter Plan of Treatment + + +--------+ + + | Name | Type | Priori | Associated Diagnoses | Order Schedule | | | | ty | | | + + +--------+ + + | Pulse oximetry, | Respiratory | Routin | Chronic airway | Expected: | | overnight study | Care | e | obstruction, not | 07/29/2013, Expires: | | | | | elsewhere classified | 07/29/2014 | | | | | (HCC) | | + + +--------+ + + documented as of this encounter Visit Diagnoses + + | Diagnosis | + + | Chronic airway obstruction, not elsewhere classified - Primary | + + documented in this encounter"
--- OUTSIDE RECORDS SUMMARY | ~2019-09-07 | XMS | Encounter Summary ---
Demographics + + + | Address | [address] | | | [place] [address] | + + + | Home Phone | | + + + | Preferred Language | Unknown | + + + | Marital Status | | + + + | Presybeterian Affiliation | 1077 | + + + | Race | Unknown | + + + | Ethnic Group | Unknown | + + + Author + + + | Author | [facility] | | | and Shaneana | + + + | Organization | [facility] | | | and Shaneana | [...] Team Providers + +------+ + | Care Shredded Filler Machine Wrapper Layer Name | Role | Phone | + +------+ + | Ramon Mora DO | PCP | | + +------+ + Encounter Details +--------+ + + + + | Date | Type | Department | Care Team | Description | +--------+ + + + + | 08/02/ | Orders Only | [facility] [place] | Aracelis Muir, | Chronic airway | | 2012 | | [address]MON[address] | RN | obstruction, not | | | | [place], | | elsewhere classified | | | | [place] [address] | | (HCC) | | | | [phone] | | | +--------+ + + + [...] | Chronic airway obstruction, not elsewhere classified | + + documented in this encounter"
--- OUTSIDE RECORDS SUMMARY | ~2019-09-07 | XMS | Encounter Summary ---
Demographics + + + | Address | [address] | | | [place] [address] | + + + | Home Phone | | + + + | Preferred Language | Unknown | + + + | Marital Status | | + + + | Church Affiliation | 1077 | + + + | Race | Unknown | + + + | Ethnic Group | Unknown | + + + Author + + + | Author | [facility] | | | and Shaneana | + + + | Organization | [facility] | | | and Shaneana [...] Team Providers + +------+ + | Care Furrier Shop Supervisor Name | Role | Phone | + +------+ + | Ramon Mora DO | PCP | | + +------+ + Reason for Visit +--------+ + | Reason | Comments | +--------+ + | Other | | +--------+ + Encounter Details +--------+ + + + + | Date | Type | Department | Care Team | Description | +--------+ + + + + | 01/08/ | Telephone | [facility] | Aracelis Muir, | Other | | 2012 | | [address] | RN | | | | | [place], | | | | | | [place] [address] | | | | | | [phone] | | | +--------+ + + + [...]
--- OUTSIDE RECORDS SUMMARY | ~2019-09-07 | XMS | Clinical Summary ---
Demographics + + + | Address | [address] | | | [place] [address] | + + + | Home Phone | | + + + | Preferred Language | Unknown | + + + | Marital Status | | + + + | Episcopalian Affiliation | 1077 | + + + | Race | Unknown | + + + | Ethnic Group | Unknown | + + + Author + + + | Author | [facility] | | | and Shaneana | + + + | Organization | [facility] | | | and Shaneana [...] Team Providers + +------+ + | Care Shift Manager Name | Role | Phone | + [...] + | Hydrocodone | Hives | | 20 | | | | | | 12 [...] | PLUS (AEROCHAMBER) | | | | 7/20 | | e | | MISC | [...] | | 07/07/2014, 07/25/2013, | | | (#1) | 9 | 07/12/2012 | | + + + + + | Vaccine: | Completed | 01/21/2015, 10/11/2009 | | | Pneumococcal 65+ | | | | + + + [...] +--------+ +---------+--------+ | MEDICARE | MEDICA | [id number] | 10/23/19 | [phone] | | Medica | | | RE | | 13-Pre | 5 | | re | | | PART A | | sent | | | | | | AND B | | | | | | + +--------+ +--------+ +---------+--------+ | [employer] | TRANSA | [id number] | 11/23/19 | | | Indemn | [...] | 1941 | [phone] | [place] [address] | | | elizabeth | | | 9 (Home) | | + +--------+ +--------+ + + Advance Directives + + + + + | Type | Date Recorded | Patient | Explanation | | | | Unisaw Operator | | + + + + + | Power of | | | | | Finishing Tunnel Operator | | | | + + + + + | Advance | | | | | Directive | | | | + + + + +
--- OUTSIDE RECORDS SUMMARY | ~2019-09-07 | XMS | Encounter Summary ---
Demographics + + + | Address | [address] | | | [place] [address] | + + + | Home Phone | | + + + | Preferred Language | Unknown | + + + | Marital Status | | + + + | Worship Affiliation | 1077 | + + + | Race | Unknown | + + + | Ethnic Group | Unknown | + + + Author + + + | Author | [facility] | | | and Shaneana | + + + | Organization | [facility] | | | and Shaneana [...] Team Providers + +------+ + | Care Motor And Generator Assembler Name | Role | Phone | + +------+ + | Ramon Mora DO | PCP | | + +------+ + Reason for Visit +--------+ + | Reason | Comments | +--------+ + | COPD | | +--------+ + Encounter Details +--------+---------+ + + + | Date | Type | Department | Care Team | Description | +--------+---------+ + + + | 07/24/ | Office | [facility] | [place], | COPD (chronic | | 2013 | Visit | [address]ULMON[address] | Katherin Manrique MD | obstructive | | | | [place], | | pulmonary disease) | | | | [place] [address] | | (Primary Dx); | | | | [phone] | | 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 Electronically signed [...]
--- OUTSIDE RECORDS SUMMARY | ~2019-09-07 | XMS | Encounter Summary ---
Demographics + + + | Address | [address] | | | [place] [address] | + + + | Home Phone | | + + + | Preferred Language | Unknown | + + + | Marital Status | | + + + | Yarsani Affiliation | 1077 | + + + | Race | Unknown | + + + | Ethnic Group | Unknown | + + + Author + + + | Author | [facility] | | | and Shaneana | + + + | Organization | [facility] | | | and [...] Team Providers + +------+ + | Care Stock Manager Name | Role | Phone | [...] | 07/29/ | Telephone | [facility] | Renuka Espinoza, | Other | | 2012 | | [address]ULMON[address] | RN | | | | | [place], | | | | | | [place] [address] | | | | | | [phone] | | | +--------+ + + + [...]
--- OUTSIDE RECORDS SUMMARY | ~2019-09-07 | XMS | Encounter Summary ---
Demographics + + + | Address | [address] | | | [place] [address] | + + + | Home Phone | | + + + | Preferred Language | Unknown | + + + | Marital Status | | + + + | Scientology Affiliation | 1077 | + + + | Race | Unknown | + + + | Ethnic Group | Unknown | + + + Author + + + | Author | [facility] | | | and Shaneana | + + + | Organization | [facility] | | | and [...] Team Providers + +------+ + | Care Laborer Cook House Name | Role | Phone | + [...] MD | obstructive | | | | [place], | | pulmonary disease) | | | | [place] [address] | | (Primary Dx); | | | | [phone] | | Nocturnal hypoxemia; | | | [...] had to make a hurried trip to [facility]. He is th only one in [...] Sig Dispense Refill AEROCHAMBER Z-STAT PLUS (AEROCHAMBER) [facility] Use as directed. albuterol (PROAIR HFA) 90 [...] made to ensure accuracy; however, inadvertent computerized technology internship errors may be pre sent. Electronically signed [...]
--- OUTSIDE RECORDS SUMMARY | ~2019-09-07 | XMS | Encounter Summary ---
Demographics + + + | Address | [address] | | | [place] [address] | + + + | Home Phone | | + + + | Preferred Language | Unknown | + + + | Marital Status | | + + + | Shinto Affiliation | 1077 | + + + | Race | Unknown | + + + | Ethnic Group | Unknown | + + + Author + + + | Author | [facility] | | | and Shaneana | + + + | Organization | [facility] | | | and Shaneana [...] Team Providers + +------+ + | Care Anesthesiology Physician Name | Role | Phone | [...] RN | obstructive | | | | [place], | | pulmonary disease) | | | | [place] [address] | | ([facility]) | | | | [phone] | | | +--------+ + + + [...]
--- OUTSIDE RECORDS SUMMARY | ~2019-09-07 | XMS | Encounter Summary ---
Demographics + + + | Address | [address] | | | [place] [address] | + + + | Home Phone | | + + + | Preferred Language | Unknown | + + + | Marital Status | | + + + | Restoration Affiliation | 1077 | + + + | Race | Unknown | + + + | Ethnic Group | Unknown | + + + Author + + + | Author | [facility] | | | and Shaneana | + + + | Organization | [facility] | | | and Shaneana [...] Team Providers + +------+ + | Care Documentation Supervisor Name | Role | Phone | [...] RN | obstructive | | | | [place], | | pulmonary disease) | | | | [place] [address] | | ([facility]) | | | | [phone] | | | +--------+ + + + [...]
--- OUTSIDE RECORDS SUMMARY | ~2019-09-07 | XMS | Encounter Summary ---
Demographics + + + | Address | [address] | | | [place] [address] | + + + | Home Phone | | + + + | Preferred Language | Unknown | + + + | Marital Status | | + + + | Sabianism Affiliation | 1077 | + + + | Race | Unknown | + + + | Ethnic Group | Unknown | + + + Author + + + | Author | [facility] | | | and Shaneana | + + + | Organization | [facility] | | | and Shaneana [...] Team Providers + +------+ + | Care Portable Track Line Marker Name | Role | Phone | + [...] + + | 08/12/ | Office | [facility] | [place], | COPD (chronic | | 2014 | Visit | [address]ULMON[address] | Katherin Manrique MD | obstructive | | | | [place], | | pulmonary disease); | | | | [place] [address] | | Nocturnal hypoxemia | | | | [phone] | | due to emphysema | | | | | | ([facility]); Tobacco abuse | +--------+---------+ + + [...] brother's driveway at his own pace on [facility], he estimates this as 1/8th a [...] having relapsed again. He also travelled to [place] for his niece's wedding and did not [...] None Social History Narrative Lives alone in [place]. His in 2012 from cancer. Allergies: Allergies [...] 492.8 He has qualified for oxygen at [facility] and declines this. 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 Plan 1.Continue Symbicort [...] made to ensure accuracy; however, inadvertent computerized hat conditioner errors may be pre sent. Electronically signed [...]
--- OUTSIDE RECORDS SUMMARY | ~2019-09-07 | XMS | Encounter Summary ---
Demographics + + + | Address | [address] | | | [place] [address] | + + + | Home Phone | | + + + | Preferred Language | Unknown | + + + | Marital Status | | + + + | Orthodoxy Affiliation | 1077 | + + + | Race | Unknown | + + + | Ethnic Group | Unknown | + + + Author + + + | Author | [facility] | | | and Shaneana | + + + | Organization | [facility] | | [...] Team Providers + +------+ + | Care Retail Selling Specialist Name | Role | Phone | [...] Description | +--------+--------+ + + + | 03/23/ | Refill | [facility] [place] | [place], | Medication Refill | | 2014 | | [address]MON[address] | Katherin Manrique MD | | | | | [place], | | | | | | [place] [address] | | | | | | [phone] | | | +--------+--------+ + + + [...]
--- OUTSIDE RECORDS SUMMARY | ~2019-09-07 | XMS | Encounter Summary ---
Demographics + + + | Address | [address] | | | [place] [address] | + + + | Home Phone | | + + + | Preferred Language | Unknown | + + + | Marital Status | | + + + | Caodaism Affiliation | 1077 | + + + | Race | Unknown | + + + | Ethnic Group | Unknown | + + + Author + + + | Author | [facility] | | | and Shaneana | + + + | Organization | [facility] | | | and Shaneana [...] Team Providers + +------+ + | Care Head Of Sales And Marketing Name | Role | Phone | + +------+ + | Ramon Mora DO | PCP | | + +------+ + Reason for Visit +--------+ + | Reason | Comments | +--------+ + | Other | | +--------+ + Encounter Details +--------+ + + + + | Date | Type | Department | Care Team | Description | +--------+ + + + + | 11/29/ | Telephone | [facility] | Aracelis Muir, | Other | | 2012 | | [address]ULMON[address] | RN | | | | | [place], | | | | | | [place] [address] | | | | | | [phone] | | | +--------+ + + + [...] Oxygen Therapy | Respiratory | Routin | Chronic airway | 1 Occurrences | | | Care | e | obstruction, not | starting 11/29/2012 | | | | | elsewhere classified | until 11/29/2013 | | | | | ([facility]) | | + + +--------+ + + documented as of this encounter Visit Diagnoses + + | Diagnosis | + + | Chronic airway obstruction, not elsewhere classified - Primary | + + documented in this encounter"
--- OUTSIDE RECORDS SUMMARY | ~2019-09-07 | XMS | Encounter Summary ---
Demographics + + + | Address | [address] | | | [place] [address] | + + + | Home Phone | | + + + | Preferred Language | Unknown | + + + | Marital Status | | + + + | Episcopal Affiliation | 1077 | + + + | Race | Unknown | + + + | Ethnic Group | Unknown | + + + Author + + + | Author | [facility] | | | and Shaneana | + + + | Organization | [facility] | | | and Shaneana [...] Team Providers + +------+ + | Care Egg Setter Name | Role | Phone | + [...] Manrique MD | | | | | [place], | | | | | | [place] [address] | | | | | | [phone] | | | +--------+--------+ + + + [...]
--- OUTSIDE RECORDS SUMMARY | ~2019-09-07 | XMS | Encounter Summary ---
Demographics + + + | Address | [address] | | | [place] [address] | + + + | Home Phone | | + + + | Preferred Language | Unknown | + + + | Marital Status | | + + + | Yazdanism Affiliation | 1077 | + + + | Race | Unknown | + + + | Ethnic Group | Unknown | + + + Author + + + | Author | [facility] | | | and Shaneana | + + + | Organization | [facility] | | | and Shaneana [...] Team Providers + +------+ + | Care Hat Brim Curler Name | Role | Phone | + +------+ + PCP | Unavailable | + +------+ + Encounter Details +--------+ + + + + | Date | Type | Department | Care Team | Description | +--------+ + + + + | 03/08/ | Hospital | [facility] | Omarenstein, | | | 2010 | Encounter | MED CTR XRAY [address] | Katherin Manrique MD | | | | | [place] | | | | | | [place] [address] | | | | | | [phone] | | | +--------+ + + + [...] + + documented as of this encounter Medications at Time of Discharge + + + +---------+ + + | Medication | Sig | Dispensed | Refills | Start | End Date | | | | | | Date | | + + + +---------+ + + | AEROCHAMBER Z-STAT | Use as directed. | | 0 | 03/08/20 | | | PLUS (AEROCHAMBER) | | | | 11 | | | MISC | | | | | | + + + +---------+ + + documented as of this encounter Plan of Treatment Not on filedocumented as of this encounter Procedures + +--------+ + + + | Procedure Name | Priori | Date/Time | Associated Diagnosis | Comments | | | ty | | | | + +--------+ + + + | XR CHEST PA AND | | 03/08/2011 | | Results for this | | LATERAL | | 12:39 PM | | procedure are in the | | | | PDT | | results section. | + +--------+ + + + documented in this encounter Results XR Chest PA and Lateral (03/08/2011 12:39 PM PDT) + + | Specimen | + + | | + + + + + | Narrative | Performed At | + + + | [facility] Diagnostic Imaging Department | [facility] | | [address] [facility] | [facility] | | TWO VIEW CHEST CLINICAL | DIAG IMG | | HISTORY: COPD. COMPARISON: None. FINDINGS: Heart size is | | | normal. Pulmonary vasculature is prominent centrally. No areas of | | | focal abno rmal lung density are seen. Mild hyperinflation is | | | present. No acute bony abnormalities or upper abdo mi | | | abnormalities are noted. IMPRESSION: 1. MILD HYPERINFLATION. | | | OTHERWISE NEGATIVE STUDY OF THE CHEST. Dictated Date/Time: | | | 03/08/2011 14:37 Transcribed Date/Time: 03/08/2011 16:44 | | | Artificial [employer] Ranch Supervisor: <Electronically Signed by Ranjan Yeager | | | MD Hitesh> 03/09/11 0735 | | + + + + + | Procedure Note | + + | Hans, Rad Conversion - 11/29/2013 2:57 PM [facility] | | Diagnostic Imaging Department [address] [place] [address] | | TWO VIEW CHEST CLINICAL HISTORY: COPD. COMPARISON: | | None. FINDINGS: Heart size is normal. Pulmonary vasculature is prominent centrally. No | | areas of focal abnormal lung density are seen. Mild hyperinflation is present. No acute | | bony abnormalities or upper abdominal abnormalities are noted. IMPRESSION: 1. MILD | | HYPERINFLATION. OTHERWISE NEGATIVE STUDY OF THE CHEST. Dictated Date/Time: 03/08/2011 | | 14:37Transcribed Date/Time: 03/08/2011 16:44Transcriptionist: <Electronically | | Signed by Ranjan Proctor MD> 03/09/11 0735 | | | |COMPARISON: None. | | | |FINDINGS: Heart size is normal. Pulmonary vasculature is prominent centrally. No areas of focal abno | |rmal lung density are seen. Mild hyperinflation is present. No acute bony abnormalities or upper abdo | |mi abnormalities are noted. | | | |IMPRESSION: | |1. MILD HYPERINFLATION. OTHERWISE NEGATIVE STUDY OF THE CHEST. | | | |Dictated Date/Time: 03/08/2011 14:37 | |Transcribed Date/Time: 03/08/2011 16:44 | |[employer] Supervisor: | |<Electronically Signed by Ranjan Proctor MD> 03/09/11 0735 | + + + +---------+ + + | Performing | Address | City/State/Zipcode | Phone Number | | Organization | | | | + +---------+ + + | [place] | | | | | [facility] | | | | + +---------+ + + documented in this encounter Visit Diagnoses Not on filedocumented in this encounter"
--- OUTSIDE RECORDS SUMMARY | ~2019-09-07 | XMS | Encounter Summary ---
Demographics + + + | Address | [address] | | | [place] [address] | + + + | Home Phone | | + + + | Preferred Language | Unknown | + + + | Marital Status | | + + + | Uatsdin Affiliation | 1077 | + + + | Race | Unknown | + + + | Ethnic Group | Unknown | + + + Author + + + | Author | [facility] | | | and Shaneana | + + + | Organization | [facility] | | | and Shaneana | [...] Team Providers + +------+ + | Care Insurance Examiner Name | Role | Phone | + [...] MD | obstructive | | | | [place], | | pulmonary disease) | | | | [place] [address] | | (Primary Dx); | | | | [phone] | | 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 Electronically signed [...]
--- OUTSIDE RECORDS SUMMARY | ~2019-09-07 | XMS | Encounter Summary ---
Demographics + + + | Address | [address] | | | [place] [address] | + + + | Home Phone | | + + + | Preferred Language | Unknown | + + + | Marital Status | | + + + | Adventism Affiliation | 1077 | + + + | Race | Unknown | + + + | Ethnic Group | Unknown | + + + Author + + + | Author | [facility] | | | and Shaneana | + + + | Organization | [facility] | | | and [...] Team Providers + +------+ + | Care Mobile Home Technician Name | Role | Phone | [...] Manrique MD | | | | | [place], | | | | | | [place] [address] | | | | | | [phone] | | | +--------+--------+ + + + [...]
--- OUTSIDE RECORDS SUMMARY | ~2019-09-07 | XMS | Encounter Summary ---
Demographics + + + | Address | [address] | | | [place] [address] | + + + | Home Phone | | + + + | Preferred Language | Unknown | + + + | Marital Status | | + + + | Religion Affiliation | 1077 | + + + | Race | Unknown | + + + | Ethnic Group | Unknown | + + + Author + + + | Author | [facility] | | | and Shaneana | + + + | Organization | [facility] | | | and Shaneana [...] Team Providers + +------+ + | Care Medical Billing Coordinator Name | Role | Phone | + [...] + + + + | 10/26/ | Telephone | [facility] | Aracelis Muir, | Other | | 2012 | | [address]ULMONARY [address] | RN | | | | | [place], | | | | | | [place] [address] | | | | | | [phone] | | | +--------+ + + + [...]
--- OUTSIDE RECORDS SUMMARY | ~2019-09-07 | XMS | Encounter Summary ---
Demographics + + + | Address | [address] | | | [place] [address] | + + + | Home Phone [...] | Author | [facility] | | | and Shaneana | + + + | Organization | [facility] | | | [...] Team Providers + +------+ + | Care Auto Damage Trainee Name | Role | Phone | + +------+ + | Ramon Mora DO | PCP | | + +------+ + Reason for Visit +---------+ + | Reason | Comments | +---------+ + | Results | overnight oximetry | +---------+ + Encounter Details +--------+ + + + + | Date | Type | Department | Care Team | Description | +--------+ + + + + | 08/05/ | Telephone | [facility] [place] | Aracelis Muir, | Results (overnight | | 2012 | | [address]ULMONARY [address] | RN | oximetry) | | | | [place], | | | | | | [place] [address] | | | | | | [phone] | | | +--------+ + + + [...]
--- OUTSIDE RECORDS SUMMARY | ~2019-09-07 | XMS | Encounter Summary ---
Demographics + + + | Address | [address] | | | [place] [address] | + + + | Home Phone [...] | Author | [facility] | | | and Shaneana | + + + | Organization | [facility] | | | and [...] Team Providers + +------+ + | Care Window Dresser Name | Role | Phone | + +------+ + | Ramon Mora DO | PCP | | + +------+ + Encounter Details +--------+ + + + + | Date | Type | Department | Care Team | Description | +--------+ + + + + | 11/29/ | Orders Only | [facility] [place] | Aracelis Muri, | Chronic airway | | 2012 | | [address]ULMONARY [address] | RN | obstruction, not | | | | [place], | | elsewhere classified | | | | [place] [address] | | (HCC) | | | | [phone] | | | +--------+ + + + [...]
--- OUTSIDE RECORDS SUMMARY | ~2019-09-07 | XMS | Encounter Summary ---
Demographics + + + | Address | [address] | | | [place] [address] | + + + | Home Phone [...] | [facility] | | | and Shaneana | + + + | Organization | [facility] | | [...] Team Providers + +------+ + | Care Loss Prevention Consultant Name | Role | Phone | [...] | RN | | | | | [place], | | | | | | [place] [address] | | | | | | [phone] | | | +--------+ + + + [...]
--- OUTSIDE RECORDS SUMMARY | ~2019-09-07 | XMS | Encounter Summary ---
Demographics + + + | Address | [address] | | | [place] [address] | + + + | Home Phone [...] | Author | [facility] | | | and Shaneana | + + + | Organization | [facility] | | | and [place] [...] Team Providers + +------+ + | Care Fire Fighting Equipment Specialist Name | Role | Phone | + +------+ + | Ramon Mora DO | PCP | | + +------+ + Reason for Visit +--------+ + | Reason | Comments | +--------+ + | COPD | | +--------+ + Encounter Details +--------+---------+ + + + | Date | Type | Department | Care Team | Description | +--------+---------+ + + + | 07/25/ | Office | [facility] | [place], | COPD (chronic | | 2013 | Visit | PULMONARY [address] | Katherin Manrique MD | obstructive | | | | [place], | | pulmonary disease) | | | | [place] [address] | | ([facility]) (Primary Dx); | | | | [phone] | | Nicotine addiction; | | | | | | Hyperlipidemia; | | | | | | Hypertension; | | | | | | Screening | +--------+---------+ + + + Social History [...] Yes; Counseling Given: Yes | | Comments: Smoking 1 ppd right now [...] + + + | Blood Pressure | 142/70 | 07/25/2013 1:24 PM | | | | | PDT | | + + + + + | Pulse | 104 | 07/25/2013 1:24 PM | | | | | PDT | | + + + + + | Temperature | - | - | | + + + + + | Respiratory Rate | - | - | | + + + + + | Oxygen Saturation | 97% | 07/25/2013 1:24 PM | | | | | PDT | | + + + + + | Inhaled Oxygen | - | - | | | Concentration | | | | + + + + + | Weight | 96.6 kg (213 lb) | 07/25/2013 1:24 PM | | | | | PDT | | + + + + + | Height | 180.3 cm (5' 11") | 07/25/2013 1:24 PM | | | | | PDT | | + + + + + | Body Mass Index | 29.71 | 07/25/2013 1:24 PM | | | | | PDT | | + + + + + documented in this encounter Patient Instructions Patient Instructions Katherin Madden MD - 07/25/2013 2:10 PM PDTPlease have your la bs done at [facility], we will give you the orders to take with you. Fast for 10 hours prior to having your labs done. We will send a copy to Dr. Mora. Please make an appointment to see Dr. Mora. Please get your flu shot. documented in this encounter Progress Notes Katherin Madden MD - 07/25/2013 1:43 PM PDTFormatting of this note might be differe nt from the original. Pulmonary Follow Up Note MD [facility] [address] [place], [address] HPI Louie Méndez is a 72 y.o. male patient of Ramon Mora here today for follow up of C OPD. At their last visit, we had continued him on Symbicort, stopped most of his as need inhaler s to streamline his medications, and continued Duonebs scheduled and albuterol. Since their last visit he feels like he has been doing fine, except when he forgets to do his nebulizer . He has not had any acute illnesses. He is currently on a regimen of Symbicort twice daily, Duonebs scheduled 4 times daily. He does feel like this medication regimen is working for them.They return today for routine follow up. Currently they are using their rescue inhaler, albuterol, one time a day at the most. Currently they are able to walk 1/4-1/2 a mile at their own pace on level ground. He is exe rcising regularly. He is making an effort to park farther from the store to walk in so that he gets more exercise in. He does cough chronically, and does produce mucous. The mucous is clear in color. He has no t had hemoptysis. The cough has recurred since he resumed smoking. He has been evaluated for nocturnal oxygen and does not use it. He was lasted tested in [facility] of last year. He notes that he has been smoking more lately. He did backslid after his in , which was very stressful. She had been battling her 5th primary cancer, and finally decid ed against chemotherapy in November/December. He was up to 1.5 ppd, and is back down to 1 ppd. He is planning on resuming the patch this week. He notes that he is looking forward to amber huynh the money he saved from not smoking cigarettes again. Past Medical History Past Medical History Diagnosis [...] Tramadol Medications: Outpatient Encounter Prescriptions as of 07/25/2013 Medication Status Sig Dispense Refill AEROCHAMBER Z-STAT PLUS (AEROCHAMBER) MIS Active Use as directed. albuterol (PROAIR HFA) 90 mcg/puff inhaler Active Inhale 2 puffs every 4 hours as neede d for shortness of breath 1 Inhaler 2 albuterol-ipratropium (DUONEB) 2.5-0.5 mg/3 mL SOLN Active Take 3 mLs by nebulization E very 4 hours. aspirin (ASPIRIN LOW DOSE) 81 MG tablet Active Take 81 mg by mouth Daily. budesonide-formoterol (SYMBICORT) 80-4.5 mcg/puff inhaler Active Inhale 2 puffs into th e lungs 2 times daily. 1 Inhaler 5 Ibuprofen-Diphenhydramine Cit (IBUPROFEN PM) 200-38 MG TABS Active Take 2 tablets by mo uth nightly. lisinopril (PRINIVIL, ZESTRIL) 20 mg tablet Active Take 20 mg by mouth Daily. metoprolol tartrate (LOPRESSOR) 25 mg tablet Active Take 25 mg by mouth Daily. simvastatin (ZOCOR) 40 mg tablet Active Take 20 mg by mouth Daily. Review of Systems Constitutional: Denies fever, chills, and sweats. He has lost some weight since last seen. Sleep: Sleep has been better since taking ibuprofen PM. Eyes: Denies vision change and eye irritation. ENT: Denies earache, decreased hearing, nasal congestion, nosebleeds, sore throat, and ho arseness. Resp: See HPI. CV: Denies chest pain, palpitations, syncope, and peripheral edema. GI: Denies heartburn, nausea, vomiting, and abdominal pain. : Denies difficulty emptying bladder and nocturia. Objective BP 142/70 | Pulse 104 | Ht 1.803 m (5' 11") | Wt 96.616 kg (213 lb) | BMI 29.71 kg/m2 | SpO 2 97%RA General Appearance: Alert, cooperative, no distress, appears [...] Data: Immunization History Administered Date(s) Administered INFLUENZA, PRESERVATIVE FREE IM 07/12/2012 Pneumococcal (Adult) 10/11/2009 Assessment 1. COPD (chronic obstructive pulmonary disease) - Overall stable. He feels like this medica tion regimen is working for him. I brought up switching to Spiriva, which would involve stop ping the Duonebs, but he feels he is fine where he is at. He would rather focus on stopping smoking right now. 2. Nicotine addiction - He had a relapse with dealing with his 's cancer and subsequent . She also was smoking heavily during this time. He is eager to focus on quitting agai n. He has used the patches before with good success, and wants to try this again. He has sta rted to cutback, and is down from 1.5 ppd to 1 ppd. 3. Hyperlipidemia - He has not been to a PCP in quite some time for screening labs (years h e believes). I asked him to make an appointment. I would like to get some labs done as he laws s been taking his blood pressure medications, and ibuprofen PM nightly, so will add fasting lipids and LFTs, with copy sent to Dr. Mora. 4. Hypertension - Blood pressure today is somewhat higher than goal, though at last visit w as at goal. On his blood pressure medications. He has not had recent labs, including director chemistry cristina. I discussed that there is some risk to jail NSAID use, without monitoring his hubert al function, especially in the setting of high blood pressure, etc. I will check baseline la bs, and send copy to his PCP. 5. Screening - Given that he has not been in in years, I am adding a baseline CBC with diff erential to his labs for screening purposes. He is encouraged to see his primary provider. Plan 1.Continue Symbicort and Duonebs. 2.Check CBC, lipids, CMP, fasting glucose. 3.He will get a flu shot.a He was advised to call if new pulmonary symptoms were to develop. Return to clinic in 6 months, or sooner with concerns. CC: Ramon Mora DO Portions of this report were transcribed using voice recognition software. Every effort wa s made to ensure accuracy; however, inadvertent computerized insurance appraiser errors may be pre sent. documented in t his encounter Plan of Treatment + +------+--------+ + + | Name | Type | Priori | Associated Diagnoses | Order Schedule | | | | ty | | | + +------+--------+ + + | Comprehensive | Lab | Routin | Hyperlipidemia | Expected: | | Metabolic Panel | | e | Hypertension | 07/25/2013, Expires: | | | | | | 07/25/2014 | + +------+--------+ + + | Lipid Profile | Lab | Routin | Hyperlipidemia | 1 Occurrences | | | | e | | starting 07/25/2013 | | | | | | until 07/25/2014 | + +------+--------+ + + | CBC no Differential | Lab | Routin | Screening | Expected: | | | | e | | 07/25/2013, Expires: | | | | | | 07/25/2014 | + +------+--------+ + + documented as of this encounter Visit Diagnoses + + | Diagnosis | + + | COPD (chronic obstructive pulmonary disease) (HCC) - Primary Chronic airway | | obstruction, not elsewhere classified | + + | Nicotine addiction Tobacco use disorder | + + | Hyperlipidemia Other and unspecified hyperlipidemia | + + | Hypertension Unspecified essential hypertension | + + | Screening Screening for unspecified condition | + + documented in this encounter
--- OUTSIDE RECORDS SUMMARY | ~2019-09-07 | XMS | Encounter Summary ---
Demographics + + + | Address | [address] | | | [place] [address] | + + + | Home Phone | | + + + | Preferred Language | Unknown | + + + | Marital Status | | + + + | Islam Affiliation | 1077 | + + + | Race | Unknown | + + + | Ethnic Group | Unknown | + + + Author + + + | Author | [facility] | | | and [place]ana | + + + | Organization | [facility] | | | and [place]ana | [...] Team Providers + +------+ + | Care Produce Department Supervisor Name | Role | Phone | [...] | obstruction, not | | | | [place], | | elsewhere classified | | | | [place] [address] | | ([facility]) (Primary Dx) | | | | [phone] | | | +--------+ + + + [...]
--- OUTSIDE RECORDS SUMMARY | ~2019-09-07 | XMS | Encounter Summary ---
Demographics + + + | Address | [address] | | | [place] [address] | + + + | Home Phone | | + + + | Preferred Language | Unknown | + + + | Marital Status | | + + + | Mandaen Affiliation | 1077 | + + + | Race | Unknown | + + + | Ethnic Group | Unknown | + + + Author + + + | Author | [facility] | | | and Shaneana | + + + | Organization | [facility] | | | and Shaneana [...] RN | oximetry) | | | | [place], | | | | | | [place] [address] | | | | | | [phone] | | | +--------+ + + + [...]
--- OUTSIDE RECORDS SUMMARY | ~2019-09-07 | XMS | Clinical Summary ---
Demographics + + + | Address | [address] | | | [place] [address] | + + + | Home Phone | | + + + | Preferred Language | Unknown | + + + | Marital Status | | + + + | Holiness Affiliation | 1077 | + + + | Race | Unknown | + + + | Ethnic Group | Unknown | + + + Author + + + | Author | [facility] | | | and Shaneana | + + + | Organization | [facility] | | | and [...] Team Providers + +------+ + | Care Process Planner Name | Role | Phone | + [...] +--------+ +---------+--------+ | MEDICARE | MEDICA | [id number] | 10/23/19 | [phone] | | Medica | | | RE | | 13-Pre | 5 | | re | | | PART A | | sent | | | | | | AND B | | | | | | + +--------+ +--------+ +---------+--------+ | [employer] | TRANSA | [id number] | 11/23/19 | | | Indemn | [...] | 1941 | [phone] | [place] [address] | | | elizabeth | | | 9 (Home) | | + +--------+ +--------+ + + Advance Directives + + + + + | Type | Date Recorded | Patient | Explanation | | | | Stock Counter | | + + + + + | Power of | | | | | Collector | | | | + + + + + | Advance | | | | | Directive | | | | + + + + +
--- OUTSIDE RECORDS SUMMARY | ~2019-09-07 | XMS | Encounter Summary ---
Demographics + + + | Address | [address] | | | [place] [address] | + + + | Home Phone [...] | Author | [facility] | | | and Shaneana | + + + | Organization | [facility] | | | and Shaneana [...] Team Providers + +------+ + | Care Automobile Assembly Supervisor Name | Role | Phone | [...] + | 01/21/ | Office | [facility] | [place], | COPD (chronic | | 2014 | Visit | [address]ULMONARY [address] | Katherin Manrique MD | obstructive | | | | [place], | | pulmonary disease); | | | | [place] [address] | | Tobacco abuse; | | | | [phone] | | 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 His in 2012 from cancer. Allergies: Allergies Allergen Reactions Acetaminophen Hives Codeine Sulfate Nausea Only Hydrocodone Hives Tramadol Hives Medications: Outpatient Encounter Prescriptions as of 01/21/2015 Medication Sig Dispense Refill AEROCHAMBER Z-STAT PLUS (AEROCHAMBER) [facility] Use as directed. albuterol [...] made to ensure accuracy; however, inadvertent computerized stoneworker errors may be pre sent. Electronically signed [...]
--- OUTSIDE RECORDS SUMMARY | ~2019-09-07 | XMS | Encounter Summary ---
Demographics + + + | Address | [address] | | | [place] [address] | + + + | Home Phone | | + + + | Preferred Language | Unknown | + + + | Marital Status | | + + + | Lutheran Affiliation | 1077 | + + + | Race | Unknown | + + + | Ethnic Group | Unknown | + + + Author + + + | Author | [facility] | | | and Shaneana | + + + | Organization | [facility] | | | and [...] Team Providers + +------+ + | Care Operating Manager Name | Role | Phone | [...] Manrique MD | | | | | [place], | | | | | | [place] [address] | | | | | | [phone] | | | +--------+--------+ + + + [...]
--- OUTSIDE RECORDS SUMMARY | ~2019-09-07 | XMS | Encounter Summary ---
Demographics + + + | Address | [address] | | | [place] [address] | + + + | Home Phone [...] | Author | [facility] | | | and Shaneana | + + + | Organization | [facility] | | | and Shaneana [...] Team Providers + +------+ + | Care Legal Research Analyst Name | Role | Phone | + [...] | obstruction, not | | | | [place], | | elsewhere classified | | | | [place] [address] | | (HCC) | | | | [phone] | | | +--------+ + + + [...]
--- OUTSIDE RECORDS SUMMARY | ~2019-09-07 | XMS | Encounter Summary ---
Demographics + + + | Address | [address] | | | [place] [address] | + + + | Home Phone | | + + + | Preferred Language | Unknown | + + + | Marital Status | | + + + | Restorationist Affiliation | 1077 | + + + | Race | Unknown | + + + | Ethnic Group | Unknown | + + + Author + + + | Author | [facility] | | | and [place]ana | + + + | Organization | [facility] | | | and [...] Team Providers + +------+ + | Care Fish Bailer Name | Role | Phone | + +------+ + | Ramon Moar DO | PCP | | + +------+ [...] Manrique MD | | | | | [place], | | | | | | [place] [address] | | | | | | [phone] | | | +--------+--------+ + + + [...]
--- OUTSIDE RECORDS SUMMARY | ~2019-09-07 | XMS | Encounter Summary ---
Demographics + + + | Address | [address] | | | [place] [address] | + + + | Home Phone | | + + + | Preferred Language | Unknown | + + + | Marital Status | | + + + | Muslim Affiliation | 1077 | + + + | Race | Unknown | + + + | Ethnic Group | Unknown | + + + Author + + + | Author | [facility] | | | and [place] | + + + | Organization | [facility] | | | and [place] | [...] Team Providers + +------+ + | Care Cattle Killer Name | Role | Phone | + +------+ + PCP | Unavailable | + +------+ + Encounter Details +--------+ + + + + | Date | Type | Department | Care Team | Description | +--------+ + + + + | 03/08/ | Hospital | [facility] | [place], | | | 2010 | Encounter | MED CTR XRAY [address] | Katherin Manrique MD | | | | | [place] | | | | | | [place] [address] | | | | | | [phone] | | | +--------+ + + + [...] Performed At | + + + | [facility] Diagnostic Imaging Department | [facility] | | [address] [facility] | [facility] | | [facility]ICAL | [...] Transcribed Date/Time: 03/08/2011 16:44 | | | Sludge Control Attendant: <Electronically Signed by Ranjan Yeager | | | MD Hitesh> 03/09/11 0735 | | + + + + + | Procedure Note | + + | Hans, Rad Conversion - 11/29/2013 2:57 PM [facility] | | Diagnostic Imaging Department [address] [place] [address] | | [facility] CLINICAL HISTORY: [...] 14:37 | |Transcribed Date/Time: 03/08/2011 16:44 | |Sludge Control Attendant: | |<Electronically Signed by Ranjan Proctor MD> [...]
--- OUTSIDE RECORDS SUMMARY | ~2019-09-07 | XMS | Encounter Summary ---
Demographics + + + | Address | [address] | | | [place] [address] | + + + | Home Phone [...] | Author | [facility] | | | and [place]ana | + + + | Organization | [facility] | | | and [...] Team Providers + +------+ + | Care Artificial Stone Applicator Name | Role | Phone | + [...] | | | | | | [place] [address] | | | | | | [phone] | | | +--------+ + + + [...]
--- OUTSIDE RECORDS SUMMARY | ~2019-09-07 | XMS | Encounter Summary ---
Demographics + + + | Address | [address] | | | [place] [address] | + + + | Home Phone | | + + + | Preferred Language | Unknown | + + + | Marital Status | | + + + | Congregational Affiliation | 1077 | + + + | Race | Unknown | + + + | Ethnic Group | Unknown | + + + Author + + + | Author | [facility] | | | and [place] | + + + | Organization | [facility] | | | and [place] [...] Team Providers + +------+ + | Care Director Of Health Education Name | Role | Phone | + [...] MD | obstructive | | | | [place], | | pulmonary disease) | | | | [place] [address] | | ([facility]) (Primary Dx); | | | | [phone] | | Nicotine addiction; | | | [...] PDTPlease have your la bs done at [facility], we will give you the orders to [...] MD [facility] [address] [place], [address] HPI Louie Méndez is a 72 y.o. [...] use it. He was lasted tested in [facility] of last year. He notes that he [...] He has not had recent labs, including inorganic chemistry professor cristina. I discussed that there is some risk to alf NSAID use, without monitoring his hubert al [...] made to ensure accuracy; however, inadvertent computerized blocker and polisher gold wheel errors may be pre sent. documented in [...]
--- OUTSIDE RECORDS SUMMARY | ~2019-09-07 | XMS | Encounter Summary ---
Demographics + + + | Address | [address] | | | [place] [address] | + + + | Home Phone | | + + + | Preferred Language | Unknown | + + + | Marital Status | | + + + | Sikhism Affiliation | 1077 | + + + | Race | Unknown | + + + | Ethnic Group | Unknown | + + + Author + + + | Author | [facility] | | | and [place] | + + + | Organization | [facility] | | | and [...] + +------+ + | Care Director Of Events Name | Role | Phone | + [...] + | 01/01/ | Office | [facility] [place] | [place], | COPD (chronic | | 2012 | Visit | PULMONARY [address] | Katherin Manrique MD | obstructive | | | | [place], | | pulmonary disease) | | | | [place] [address] | | (HCC) (Primary Dx); | | | | [phone] | | Tobacco abuse; | | | [...] from the hospital at the time of hao harry. Past Medical History Past Medical History Diagnosis [...] by mouth Daily. AEROCHAMBER Z-STAT PLUS (AEROCHAMBER) [facility] Use as directed. albuterol-ipratropium (COMBIVENT) 103-18 mcg/puff [...]
--- OUTSIDE RECORDS SUMMARY | ~2019-09-07 | XMS | Encounter Summary ---
Demographics + + + | Address | [address] | | | [place] [address] | + + + | Home Phone | | + + + | Preferred Language | Unknown | + + + | Marital Status | | + + + | Gnosticist Affiliation | 1077 | + + + | Race | Unknown | + + + | Ethnic Group | Unknown | + + + Author + + + | Author | [facility] | | | and [place] | + + + | Organization | [facility] | | | [...] Team Providers + +------+ + | Care Journeyman Press Operator Name | Role | Phone | [...] | SR | | | | | [phone] | | | +--------+ + + + [...]
--- OUTSIDE RECORDS SUMMARY | ~2019-09-07 | XMS | Encounter Summary ---
Demographics + + + | Address | [address] | | | [place] [address] | + + + | Home Phone [...] | [facility] | | | and [place] | + + + | Organization | [facility] | | | [...] Team Providers + +------+ + | Care Psychiatric Arnp Name | Role | Phone | + [...] Manrique MD | | | | | [place], | | | | | | [place] [address] | | | | | | [phone] | | | +--------+--------+ + + + [...]
--- OUTSIDE RECORDS SUMMARY | ~2019-09-07 | XMS | Encounter Summary ---
Demographics + + + | Address | [address] | | | [place] [address] | + + + | Home Phone | | + + + | Preferred Language | Unknown | + + + | Marital Status | | + + + | Mosque Affiliation | 1077 | + + + | Race | Unknown | + + + | Ethnic Group | Unknown | + + + Author + + + | Author | [facility] | | | and [place] | + + + | Organization | [facility] | | | and [place] [...] Providers + +------+ + | Care Medical Record Transcriber Name | Role | Phone | + [...] Manrique MD | | | | | [place], | | | | | | [place] [address] | | | | | | [phone] | | | +--------+--------+ + + + [...]
--- OUTSIDE RECORDS SUMMARY | ~2019-09-07 | XMS | Encounter Summary ---
Demographics + + + | Address | [address] | | | [place] [address] | + + + | Home Phone | | + + + | Preferred Language | Unknown | + + + | Marital Status | | + + + | Pentecostalism Affiliation | 1077 | + + + | Race | Unknown | + + + | Ethnic Group | Unknown | + + + Author + + + | Author | [facility] | | | and [place] | + + + | Organization | [facility] | | | and [place] [...] Team Providers + +------+ + | Care Photovoltaic Installation Technician Name | Role | Phone | [...] Manrique MD | | | | | [place], | | | | | | [place] [address] | | | | | | [phone] | | | +--------+--------+ + + + [...]
--- OUTSIDE RECORDS SUMMARY | ~2019-09-07 | XMS | Encounter Summary ---
Demographics + + + | Address | [address] | | | [place] [address] | + + + | Home Phone [...] Author | [facility] | | | and [place] | + + + | Organization | [facility] | | | and [place] [...] Team Providers + +------+ + | Care Fuels Engineer Name | Role | Phone | [...] | RN | | | | | [place], | | | | | | [place] [address] | | | | | | [phone] | | | +--------+ + + + [...] until 11/29/2013 | | | | | ([facility] | | + + +--------+ + + documented as of this encounter Visit Diagnoses + + | Diagnosis | + + | Chronic airway obstruction, not elsewhere classified - Primary | + + documented in this encounter"
--- OUTSIDE RECORDS SUMMARY | ~2019-09-07 | XMS | Encounter Summary ---
Demographics + + + | Address | [address] | | | [place] [address] | + + + | Home Phone | | + + + | Preferred Language | Unknown | + + + | Marital Status | | + + + | Mormonism Affiliation | 1077 | + + + | Race | Unknown | + + + | Ethnic Group | Unknown | + + + Author + + + | Author | [facility] | | | and [place] | + + + | Organization | [facility] | | | and [place] | + + + | Address | Unknown | + + + | Phone | Unavailable | + + + Support + + +---------+ + | Name | Relationship | Address | Phone | + + +---------+ + | Jacile Bright | ECON | Unknown | | + + +---------+ + Care Team Providers + +------+ + | Care Train Inspector Name | Role | Phone | [...] + | 01/21/ | Office | [facility] | [place], | COPD (chronic | | 2014 | Visit | PULMONARY [address] | Katherin Manrique MD | obstructive | | | | [place], | | pulmonary disease); | | | | [place] [address] | | Tobacco abuse; | | | | [phone] | | 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 His in 2012 from cancer. Allergies: Allergies Allergen Reactions Acetaminophen Hives Codeine Sulfate Nausea Only Hydrocodone Hives Tramadol Hives Medications: Outpatient Encounter Prescriptions as of 01/21/2015 Medication Sig Dispense Refill AEROCHAMBER Z-STAT PLUS (AEROCHAMBER) [facility] Use as directed. albuterol (PROAIR HFA) 90 [...] made to ensure accuracy; however, inadvertent computerized merchandise stocker errors may be pre sent. Electronically signed [...]
--- OUTSIDE RECORDS SUMMARY | ~2019-09-07 | XMS | Encounter Summary ---
Demographics + + + | Address | [address] | | | [place] [address] | + + + | Home Phone | | + + + | Preferred Language | Unknown | + + + | Marital Status | | + + + | Scientology Affiliation | 1077 | + + + | Race | Unknown | + + + | Ethnic Group | Unknown | + + + Author + + + | Author | [facility] | | | and [place] | + + + | Organization | [facility] | | | and [place] [...] Team Providers + +------+ + | Care Trademark Affixer Name | Role | Phone | + [...] | RN | | | | | [place], | | | | | | [place] [address] | | | | | | [phone] | | | +--------+ + + + [...]
--- OUTSIDE RECORDS SUMMARY | ~2019-09-07 | XMS | Encounter Summary ---
Demographics + + + | Address | [address] | | | [place] [address] | + + + | Home Phone | | + + + | Preferred Language | Unknown | + + + | Marital Status | | + + + | Oriental Orthodox Affiliation | 1077 | + + + | Race | Unknown | + + + | Ethnic Group | Unknown | + + + Author + + + | Author | [facility] | | | and [place] | + + + | Organization | [facility] | | | and [...] Team Providers + +------+ + | Care Screen Printing Loader Unloader Name | Role | Phone | + [...] Manrique MD | | | | | [place], | | | | | | [place] [address] | | | | | | [phone] | | | +--------+--------+ + + + [...]
--- OUTSIDE RECORDS SUMMARY | ~2019-09-07 | XMS | Encounter Summary ---
Demographics + + + | Address | [address] | | | [place] [address] | + + + | Home Phone | | + + + | Preferred Language | Unknown | + + + | Marital Status | | + + + | Jainism Affiliation | 1077 | + + + | Race | Unknown | + + + | Ethnic Group | Unknown | + + + Author + + + | Author | [facility] | | | and [place] | + + + | Organization | [facility] | | | and [...] Team Providers + +------+ + | Care Explosives Worker Name | Role | Phone | + [...] MD | obstructive | | | | [place], | | pulmonary disease) | | | | [place] [address] | | (HCC) (Primary Dx); | | | | [phone] | | Tobacco abuse; | | | [...] by mouth Daily. AEROCHAMBER Z-STAT PLUS (AEROCHAMBER) [facility] Use as directed. albuterol-ipratropium (COMBIVENT) 103-18 mcg/puff [...]
--- OUTSIDE RECORDS SUMMARY | ~2019-09-07 | XMS | Encounter Summary ---
Demographics + + + | Address | [address] | | | [place] [address] | + + + | Home Phone | | + + + | Preferred Language | Unknown | + + + | Marital Status | | + + + | Samaritan Affiliation | 1077 | + + + | Race | Unknown | + + + | Ethnic Group | Unknown | + + + Author + + + | Author | [facility] | | | and [place] | + + + | Organization | [facility] | | | and [...] Team Providers + +------+ + | Care Stevedoring Superintendent Name | Role | Phone | + [...] | obstruction, not | | | | [place], | | elsewhere classified | | | | [place] [address] | | (HCC) | | | | [phone] | | | +--------+ + + + [...]
--- OUTSIDE RECORDS SUMMARY | ~2019-09-07 | XMS | Encounter Summary ---
Demographics + + + | Address | [address] | | | [place] [address] | + + + | Home Phone [...] | Author | [facility] | | | and [place] | + + + | Organization | [facility] | | | and [place] [...] Team Providers + +------+ + | Care Patient Monitor Name | Role | Phone | + [...] | RN | | | | | [place], | | | | | | [place] [address] | | | | | | [phone] | | | +--------+ + + + [...]
[~2019-09-07 09:42] MED LIST changes: +OXYCODONE HCL5 MG PO
[2019-09-07] MEDS ORDERED: MEDROL4 M1 PO (11:57)
== END 2019-09-07 12:18 | disposition home or self-care (01) ==
LOC: ED 09:42
DX: J44.9 Chronic obstructive pulmonary disease, unspecified (principal); E78.00 Pure hypercholesterolemia, unspecified; F17.200 Nicotine dependence, unspecified, uncomplicated; Z88.5 Allergy status to narcotic agent; Z88.1 Allergy status to other antibiotic agents; Z88.8 Allergy status to other drugs, medicaments and biological substances; Z79.899 Other long term (current) drug therapy; Z79.82 Long term (current) use of aspirin
CPT/HCPCS: 71045; 94640; 99284-25; J1100

== ENCOUNTER 2020-07-26 09:21 | Observation (INO) | payer MEDICARE, OTHER ==
[~2020-07-26] VITALS: Ht 180.3 cm; Wt 87.5 kg
--- OUTSIDE RECORDS SUMMARY | ~2020-07-26 | XMS | Encounter Summary ---
Demographics + + + | Address | [address] | | | [place] [address] | + + + | Home Phone | | + + + | Preferred Language | Unknown | + + + | Marital Status | | + + + | Denominational Affiliation | 1077 | + + + | Race | White | + + + | Ethnic Group | Not or | + + + Author + + + | Author | [facility] | | | and [place] | + + + | Organization | [facility] | | | and [place] | + + + | Address | Unknown | + + + | Phone | Unavailable | + + + Support + + +---------+ + | Name | Relationship | Address | Phone | + + +---------+ + | Jaciel Bright | ECON | Unknown | | + + +---------+ + Care Team Providers + +------+ + | Care Laminator Printed Circuit Boards Name | Role | Phone | + +------+ + | Ramon Mora DO | PCP | | + +------+ + Reason for Visit +--------+ + | Reason | Comments | +--------+ + | COPD | | +--------+ + Encounter Details +--------+---------+ + + + | Date | Type | Department | Care Team | Description | +--------+---------+ + + + | 10/02/ | Office | [facility] | [place], | COPD (chronic | | 2013 | Visit | PULMONARY [address] | Katherin Manrique MD | obstructive | | | | [place], | | pulmonary disease) | | | | [place] [address] | | (Primary Dx); | | | | [phone] | | Nocturnal hypoxemia | | | | | | due to emphysema | | | | | | ([facility]); Tobacco abuse | +--------+---------+ + + + Social History + + + +--------+ + | Tobacco Use | Types | Packs/Day | Years | Date | | | | | Used | | + + + +--------+ + | Former Smoker | Cigarettes | 1.5 | 60 | Quit: 07/18/2014 | + + + +--------+ + + +---+---+---+ | Smokeless Tobacco: | | | | | Never Used | | | | + +---+---+---+ + + | Comments: He had relapsed, and has now not had a cigarette for 6 days by tapering off. | + + + + +---------+ + | Alcohol Use | Drinks/Week | oz/Week | Comments | + + +---------+ + | No | | | | + + +---------+ + + + + | Sex Assigned at | Date Recorded | | | | + + + | Not on file | | + + + documented as of this encounter Last Filed Vital Signs + + + + + | Vital Sign | Reading | Time Taken | Comments | + + + + + | Blood Pressure | 100/60 | 07/24/2014 12:58 PM | | | | | PDT | | + + + + + | Pulse | 85 | 07/24/2014 12:58 PM | | | | | PDT | | + + + + + | Temperature | - | - | | + + + + + | Respiratory Rate | - | - | | + + + + + | Oxygen Saturation | 96% | 07/24/2014 12:58 PM | | | | | PDT | | + + + + + | Inhaled Oxygen | - | - | | | Concentration | | | | + + + + + | Weight | 97 kg (213 lb 12.8 | 07/24/2014 12:58 PM | | | | oz) | PDT | | + + + + + | Height | 180.3 cm (5' 11") | 07/24/2014 12:58 PM | | | | | PDT | | + + + + + | Body Mass Index | 29.82 | 07/24/2014 12:58 PM | | | | | PDT | | + + + + + documented in this encounter Patient Instructions Patient Instructions Katherin Madden MD - 07/24/2014 1:19 PM PDTGet rid of all of y our ashtrays. Ask your friend to not smoke when he is over. It may also help him quit smokin g. You should get a repeat pneumonia vaccine this winter, around September. We can give it to y ou at your follow up in 6 months. Electronically signed by Katherin Madden MD at 07/24 1:33 PM PDT documented in this encounter Progress Notes Katherin Madden MD - 07/24/2014 1:10 PM PDTFormatting of this note might be differe nt from the original. Pulmonary Follow Up HPI Louie Méndez is a 73 y.o. male patient of Ramon Mora here today for follow up of COPD. At their last visit, we had continued him on Symbicort twice daily, and switched him to Duo nebs as needed only. Since their last visit he feels like he has been doing pretty well. He is currently using his nebulizer three times a day, and if he is more active, he will do it 4 times. He has not had any acute illnesses. He is currently on a regimen of Symbicort twice daily and Duonebs as needed. He does feel like this medication regimen is working for them. Currently he is using his rescue inhaler, ProAir, 3-4 times a week. He is using his nebulizer, Duoneb, 3-4 times a day. He returns today for routine follow up. Currently he is able to walk possibly 1/4 mile at his own pace on level ground. He is not e xercising regularly. He walks down to his basement several times a day and out to his garage several times a day. His hips give out before anything else. He does not cough chronically, and does not produce mucous. He notes he does cough from vida e to time. He has not had hemoptysis. He has been evaluated for nocturnal oxygen and does not use it. We last tested him about 1 year ago on room air. He qualifies for oxygen, but does not use it. Past Medical History Past Medical History Diagnosis Date COPD (chronic obstructive pulmonary disease) (HCC) Hyperlipidemia Hypertension Bundle branch block Tobacco use disorder Demand ischemia of myocardium (HCC) Supraventricular tachycardia severe Polycythemia (HCC) Impaired fasting glucose Cataracts, bilateral Past Surgical History Past Surgical History Procedure Date Appendectomy 2003 Colonoscopy Social History: History Social History Marital Status: Spouse Name: N/A Number of Children: N/A Years of Education: N/A Social History Main Topics Smoking status: Former Smoker -- 1.5 packs/day for 60 years Types: Cigarettes Quit date: 07/18/2014 Smokeless tobacco: Never Used Comment: He had relapsed, and has now not had a cigarette for 6 days by tapering off. Alcohol Use: No Drug Use: None Sexually Active: None Other Topics Concern None Social History Narrative None Allergies: Allergies Allergen Reactions Acetaminophen Codeine Sulfate Hydrocodone Tramadol Medications: Outpatient Encounter Prescriptions as of 07/24/2014 Medication Sig Dispense Refill AEROCHAMBER Z-STAT PLUS (AEROCHAMBER) [facility] Use as directed. albuterol (PROAIR HFA) 90 mcg/puff inhaler Inhale 2 puffs every 4 hours as needed for s hortness of breath 1 Inhaler 5 albuterol-ipratropium (DUONEB) 2.5-0.5 mg/3 mL SOLN Take [...] Eyes: Denies vision change and eye irritation. New diagnosis of cataracts. ENT: Denies earache, decreased hearing, nosebleeds, sore throat, and hoarseness. Resp: See HPI. CV: Denies chest pain, palpitations, syncope, and peripheral edema. GI: Denies heartburn, nausea, vomiting, and abdominal pain. : Denies difficulty emptying bladder. Objective BP 100/60 | Pulse 85 | Ht 1.803 m (5' 11") | Wt 96.979 kg (213 lb 12.8 oz) | BMI 29.83 kg/m 2 | SpO2 96% RA General Appearance: Alert, cooperative, no distress, appears [...] murmur, rub or gallop Abdomen: Soft, non-tender, non-distended Extremities: No cyanosis, clubbing, or edema Pulses: Radial pulses 2+ and symmetric Skin: Warm and dry Lymph nodes: Cervical and supraclavicular nodes normal Data: Immunization History Administered Date(s) Administered PNEUMOCOCCAL POLYSACCHARIDE 23-VALENT (PPSV23) 10/11/2009 TRIVALENT INFLUENZA, PRESERATIVE FREE (PED/ADOL/ADULT) 07/12/2012, 07/25/2013, 07/07/20 14 Assessment 1. COPD (chronic obstructive pulmonary disease) - Doing well on Symbicort and Duonebs. We w ill continue. 2. 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 3. Tobacco abuse - Quit 6 days ago. We discussed strategies to remain off of cigarettes. Plan 1.Continue Symbicort and Duonebs. He plans to start walking more as well. 2.Applauded smoking cessation. He was advised to call if new pulmonary symptoms were to develop. Return to clinic in 6 months, or sooner with concerns. CC: Ramon Mora Portions of this report were transcribed using voice recognition software. Every effort wa s made to ensure accuracy; however, inadvertent computerized health social work professor errors may be pre sent. 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
--- OUTSIDE RECORDS SUMMARY | ~2020-07-26 | XMS | Encounter Summary ---
Demographics + + + | Address | [address] | | | [place] [address] | + + + | Home Phone | | + + + | Preferred Language | Unknown | + + + | Marital Status | | + + + | Gnosticism Affiliation | 1077 | + + + | Race | White | + + + | Ethnic Group | Not or | + + + Author + + + | Author | [facility] | | | and [place] | + + + | Organization | [facility] | | | [...] Team Providers + +------+ + | Care Air Breaker Operator Name | Role | Phone | + +------+ + | Ramon Mora DO | PCP | | + +------+ + Reason for Visit + +--------+ + | Reason | Onset | Comments | | | Date | | + +--------+ + | Medication Refill | 02/17/ | | | | 2013 | | + +--------+ + Encounter Details +--------+--------+ + + + | Date | Type | Department | Care Team | Description | +--------+--------+ + + + | 02/17/ | Refill | [facility] [place] | Offenstein, | Medication Refill | | 2013 | | [address]ULMONARY [address] | Katherin Manrique MD | | | | | [place], | | | | | | [place] [address] | | | | | | [phone] | | | +--------+--------+ + + + Social History + + [...] filedocumented as of this encounter Visit Diagnoses Not on filedocumented in this encounter"
--- OUTSIDE RECORDS SUMMARY | ~2020-07-26 | XMS | Encounter Summary ---
Demographics + + + | Address | [address] | | | [place] [address] | + + + | Home Phone | | + + + | Preferred Language | Unknown | + + + | Marital Status | | + + + | Jewish Affiliation | 1077 | + + + | Race | White | + + + | Ethnic Group | Not or | + + + Author + + + | Author | [facility] | | | and [place] | + + + | Organization | [facility] | | | and [...] Team Providers + +------+ + | Care Satellite Specialist Name | Role | Phone | + +------+ + | Ramon Mora DO | PCP | | + +------+ + Encounter Details +--------+ + + + + | Date | Type | Department | Care Team | Description | +--------+ + + + + | 10/18/ | Orders Only | [facility] [place] | Aracelis Muir, | COPD (chronic | | 2011 | | [address]ULMONARY [address] | RN | obstructive | | | | [place], | | pulmonary disease) | | | | [place] [address] | | (HCC) | | | | [phone] | | | +--------+ + + + [...]
--- OUTSIDE RECORDS SUMMARY | ~2020-07-26 | XMS | Encounter Summary ---
Demographics + + + | Address | [address] | | | [place] [address] | + + + | Home Phone | | + + + | Preferred Language | Unknown | + + + | Marital Status | | + + + | Yazidi Affiliation | 1077 | + + + | Race | White | + + + | Ethnic Group | Not or | + + + Author + + + | Author | [facility] | | | and [place] | + + + | Organization | [facility] | | | [...] Team Providers + +------+ + | Care Funeral Home Assistant Name | Role | Phone | + +------+ + | Ramon Mora DO | PCP | | + +------+ + Reason for Visit +--------+ + | Reason | Comments | +--------+ + | Other | 6 month follow up COPD | +--------+ + Encounter Details +--------+---------+ + + + | Date | Type | Department | Care Team | Description | +--------+---------+ + + + | 08/12/ | Office | [facility] | Offenstein, | COPD (chronic | | 2014 | Visit | [address]ULMON[address] | Katherin Manrique MD | obstructive | | | | [place], | | pulmonary disease); | | | | [place] [address] | | Nocturnal hypoxemia | | | | [phone] | | due to emphysema | | | | | | ([facility]); Tobacco abuse | +--------+---------+ + + + Social History + + + +--------+ + | Tobacco Use | Types | Packs/Day | Years | Date | | | | | Used | | + + + +--------+ + | Former Smoker | Cigarettes | 1.5 | 60 | Quit: 01/07/2015 | + + + +--------+ + + +---+---+---+ | Smokeless Tobacco: | | | | | Never Used | | | | + +---+---+---+ + + | Comments: He had relapsed, He had relapsed again, and has now quit for the 3rd time. | + + + + +---------+ + [...] + + + | Blood Pressure | 128/64 | 08/12/2015 10:36 AM | | | | | PDT | | + + + + + | Pulse | 82 | 08/12/2015 10:36 AM | | | | | PDT | | + + + + + | Temperature | 37 C (98.6 F) | 08/12/2015 10:36 AM | | | | | PDT | | + + + + + | Respiratory Rate | 16 | 08/12/2015 10:36 AM | | | | | PDT | | + + + + + | Oxygen Saturation | 96% | 08/12/2015 10:36 AM | | | | | PDT | | + + + + + | Inhaled Oxygen | - | - | | | Concentration | | | | + + + + + | Weight | 96.6 kg (213 lb) | 08/12/2015 10:36 AM | | | | | PDT | | + + + + + | Height | 180.3 cm (5' 11") | 08/12/2015 10:36 AM | | | | | PDT | | + + + + + | Body Mass Index | 29.71 | 08/12/2015 10:36 AM | | | | | PDT | | + + + + + documented in this encounter Patient Instructions Patient Instructions Katherin Madden MD - 08/12/2015 11:11 AM PDTI would recommend g etting a high dose flu vaccine in July. Continue on the Symbicort twice daily. Continue to use the Duonebs 3-4 times daily. documented in this encounter Progress Notes Katherin Madden MD - 08/12/2015 10:38 AM PDTFormatting of this note might be differe nt from the original. Pulmonary Follow Up HPI Louie Méndez is a 74 y.o. male patient of Ramon Mora here today for follow up of COPD. At their last visit, we had continued him on Symbicort and Duonebs as needed. Since their l ast visit he feels like he has been doing well. He has not had any acute illnesses. He is currently on a regimen of Symbicort 160 mcg 2 puffs inhaled twice daily. He does fee l like this medication regimen is working for them. Currently he is using his rescue inhaler , ProAir, 1-3 times a day. He is using his nebulizer, Duonebs, 3-4 times a day. He returns today for routine follow up. Currently he is able to walk 2 round trips on his brother's driveway at his own pace on lev ground, he estimates this as 1/8th a mile or slightly more. He is not exercising regularl y. He did some walking when he went to his niece's wedding. He has done some walking, but no t as much as he would like due to the heat this summer. He has started doing some more walki ng now that the weather is better. He does not cough chronically, and does not produce mucous. He has not had hemoptysis. He has been evaluated for nocturnal oxygen and does not use it. He has declined this. He quit smoking again 2 weeks ago after having relapsed again. He also travelled to [place] for his niece's wedding and did not smoke the 7 days he was there. Past Medical History Past Medical History Diagnosis Date COPD (chronic obstructive pulmonary disease) (HCC) Hyperlipidemia Hypertension Bundle branch block Tobacco use disorder Demand ischemia of myocardium (HCC) Supraventricular tachycardia severe Polycythemia (HCC) Impaired fasting glucose Cataracts, bilateral Elevated PSA 2013 negative biopsy Past Surgical History Past Surgical History Procedure Laterality Date Appendectomy 2003 Colonoscopy Prostate biopsy 2013 Social History: History Social History Marital Status: Spouse Name: N/A Number of Children: N/A Years of Education: N/A Social History Main Topics Smoking status: Former Smoker -- 1.50 packs/day for 60 years Types: Cigarettes Quit date: 01/07/2015 Smokeless tobacco: Never Used Comment: He had relapsed, He had relapsed again, and has now quit for the 3rd time. Alcohol Use: No Drug Use: None Sexual Activity: None Other Topics Concern None Social History Narrative Lives alone in [place]. His in 2012 from cancer. Allergies: Allergies Allergen Reactions Acetaminophen Hives Codeine Sulfate Nausea Only Hydrocodone Hives Tramadol Hives Medications: Outpatient Encounter Prescriptions as of 08/12/2015 Medication Sig Dispense Refill AEROCHAMBER Z-STAT PLUS (AEROCHAMBER) [facility] Use as directed. albuterol (PROAIR HFA) 90 [...] Cit (IBUPROFEN PM) 200-38 MG TABS Take 1 tablet by mouth josefa alex. lisinopril (PRINIVIL, ZESTRIL) 20 mg tablet Take 20 mg by mouth Daily. metoprolol tartrate (LOPRESSOR) 25 mg tablet Take 25 mg by mouth Daily. simvastatin (ZOCOR) 40 mg tablet Take 40 mg by mouth Daily. No facility-administered encounter medications on file as of 08/12/2015. Review of Systems: General: []Weight loss/gain (over 10 lbs) []Fever/chills/sweats []Night sweats EENT: []Hearing loss []Vision loss/change []Sinus congestion/nasal drainage []Nosebleeds [] Hoarseness Cardiac: []Chest pain []Palpitations/heart racing []Swelling of legs/ankles [x]Waking up at night short of breath []Difficulty sleeping flat Gastrointestinal: []Nausea/vomiting []Difficulty swallowing []Heartburn/acid reflux []Loss of appetite []Abd ominal pain Urologic: []Blood in urine []Frequent urination at night []Burning/painful urination []Difficulty wit h urination Objective BP 128/64 mmHg | Pulse 82 | Temp(Src) 37 C (98.6 F) (Temporal) | Resp 16 | Ht 1.803 m ( 5' 11") | Wt 96.616 kg (213 lb) | BMI 29.72 kg/m2 | SpO2 96% RA General Appearance: Alert, cooperative, no distress, appears stated age Head: Normocephalic, without obvious abnormality, atraumatic Eyes: PERRL, conjunctiva clear, no scleral icterus, EOM's intact Ears: Normal TM's, external auditory canals, normal acuity Nose: Nares normal, septum midline, mucosa [...] normal Data: Immunization History Administered Date(s) Administered INFLUENZA, TRIVALENT PRESERVATIVE FREE (PED/ADOL/ADULT) 07/12/2012, 07/25/2013, 014 PNEUMOCOCCAL CONJUGATE 13-VALENT (PCV13) 01/21/2015 PNEUMOCOCCAL POLYSACCHARIDE 23-VALENT (PPSV23) 10/11/2009 Assessment ICD-10-CM ICD-9-CM 1. COPD (chronic obstructive pulmonary disease) J44.9 496 On Symbicort and Duonebs. He tend s to use his Duonebs often, but prefers this. 2. 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 G47.36 327.26 3. Tobacco abuse Z72.0 305.1 He had relapsed again, and quit again 2 weeks ago. He finds th e main issue is when he gets bored and does not spend time with other people who do not smok e, or does not keep busy. We discussed keeping busy this winter, and also not staying alone all winter. He reports having a good social support system, the majority of whom do not smok e. He also reports having several projects lined up for winter, working on his [employer], to keep him busy. Plan 1.Continue Symbicort twice daily. 2.Continue to use Duonebs 3-4 times daily. 3.High dose flu vaccine recommended. 4. We discussed strategies to remain off of cigarettes over the coming winter. He was advised to call if new pulmonary symptoms were to develop. Return to clinic in 6 months, or sooner with concerns. CC: Ramon Mora Portions of this report were transcribed using voice recognition software. Every effort wa s made to ensure accuracy; however, inadvertent computerized mechanic welder truck driver errors may be pre sent. 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
--- OUTSIDE RECORDS SUMMARY | ~2020-07-26 | XMS | Encounter Summary ---
Demographics + + + | Address | [address] | | | [place] [address] | + + + | Home Phone | | + + + | Preferred Language | Unknown | + + + | Marital Status | | + + + | Sikh Affiliation | 1077 | + + + | Race | White | + + + | Ethnic Group | Not or | + + + Author + + + | Author | [facility] | | | and [place] | + + + | Organization | [facility] | | | and [...] Team Providers + +------+ + | Care Sports Physician Name | Role | Phone | + [...] + | 01/23/ | Office | [facility] [place] | Offenstein, | COPD (chronic | | 2013 | Visit | [address]MON[address] | Katherin Manrique MD | obstructive | | | | [place], | | pulmonary disease) | | | | [place] [address] | | (Primary Dx); | | | | [phone] | | Nocturnal hypoxemia; | | | [...] had to make a hurried trip to [facility]. He is th only one in the [...] Sig Dispense Refill AEROCHAMBER Z-STAT PLUS (AEROCHAMBER) MISC Use as directed. albuterol (PROAIR HFA) 90 [...] made to ensure accuracy; however, inadvertent computerized pattern technician errors may be pre sent. Electronically signed [...]
--- OUTSIDE RECORDS SUMMARY | ~2020-07-26 | XMS | Encounter Summary ---
Demographics + + + | Address | [address] | | | [place] [address] | + + + | Home Phone | | + + + | Preferred Language | Unknown | + + + | Marital Status | | + + + | Restorationism Affiliation | 1077 | + + + | Race | White | + + + | Ethnic Group | Not or | + + + Author + + + | Author | [facility] | | | and [place] | + + + | Organization | [facility] | | [...] Team Providers + +------+ + | Care Junior High Math Teacher Name | Role | Phone | + +------+ + | Ramon Mora DO | PCP | | + +------+ + Reason for Visit + +--------+ + | Reason | Onset | Comments | | | Date | | + +--------+ + | Medication Refill | 06/25/ | | | | 2014 | | + +--------+ + Encounter Details +--------+--------+ + + + | Date | Type | Department | Care Team | Description | +--------+--------+ + + + | 06/25/ | Refill | [facility] [place] | Offenstein, | Medication Refill | | 2014 | | [address]ULMON[address] | Katherin Manrique MD | | | | | [place], | | | | | | [place] [address] | | | | | | [phone] | | | +--------+--------+ + + + [...]
--- OUTSIDE RECORDS SUMMARY | ~2020-07-26 | XMS | Encounter Summary ---
Demographics + + + | Address | [address] | | | [place] [address] | + + + | Home Phone | | + + + | Preferred Language | Unknown | + + + | Marital Status | | + + + | Samaritan Affiliation | 1077 | + + + | Race | White | + + + | Ethnic Group | Not or | + + + Author + + + | Author | [facility] | | | and [place] | + + + | Organization | [facility] | | [...] Team Providers + +------+ + | Care Wood Chopper Name | Role | Phone | + +------+ + | Ramon Mora DO | PCP | | + +------+ + Reason for Visit + + + | Reason | Comments | + + + | Follow-up | 6 month | + + + | COPD | | + + + Encounter Details +--------+---------+ + + + | Date | Type | Department | Care Team | Description | +--------+---------+ + + + | 01/21/ | Office | [facility] | Offenstein, | COPD (chronic | | 2014 | Visit | [address]ULMONARY [address] | Katherin Manrique MD | obstructive | | | | [place], | | pulmonary disease); | | | | [place] [address] | | Tobacco abuse; | | | | [phone] | | Nocturnal hypoxemia | | | | | | due to emphysema | | | | | | ([facility]); Need for | | | | | | vaccination with | | | | | | 13-polyvalent | | | | | | pneumococcal | | | | | | conjugate vaccine | +--------+---------+ + + + Social History [...] + + + | Blood Pressure | 146/70 | 01/21/2015 11:30 AM | | | | | PDT | | + + + + + | Pulse | 87 | 01/21/2015 11:26 AM | | | | | PDT | | + + + + + | Temperature | 37.1 C (98.8 F) | 01/21/2015 11:26 AM | | | | | PDT | | + + + + + | Respiratory Rate | - | - | | + + + + + | Oxygen Saturation | 96% | 01/21/2015 11:26 AM | on room air | | | | PDT | | + + + + + | Inhaled Oxygen | - | - | | | Concentration | | | | + + + + + | Weight | 96.8 kg (213 lb 4.8 | 01/21/2015 11:26 AM | | | | oz) | PDT | | + + + + + | Height | 180.3 cm (5' 11") | 01/21/2015 11:26 AM | | | | | PDT | | + + + + + | Body Mass Index | 29.75 | 01/21/2015 11:26 AM | | | | | PDT | | + + + + + documented in this encounter Patient Instructions Patient Instructions Katherin Madden MD - 01/21/2015 12:17 PM PDTContinue on your cu rrent medications. I do want you to try walking more. Keep on working on quitting smoking. We will give you the Prevnar 13 vaccine. documented in this encounter Progress Notes Katherin Madden MD - 01/21/2015 11:54 AM PDTFormatting of this note might be differe nt from the original. Pulmonary Follow Up HPI Louie Méndez is a 74 y.o. male patient of Ramon Mora here today for follow up of COPD. At their last visit, we had switched the Duonebs to as needed only. Since their last visit he feels like he has been doing well. He had a cough in the month of December that lasted quite some time. He took a course of antibiotics, cephalexin, which he finished on Monday. He is currently on a regimen of Symbicort twice daily. He does feel like this medication r alec is working for them. He uses his ProAir 1-2 times a day, usually if he gets up earlie r than his normal time, and then one more time in the afternoon. He is using his nebulizer, Duoneb, 3 times a day. When he is more active he increases it to 4 times daily. He return s today for routine follow up. Currently he is able to walk 1/4 mile at his own pace on level ground, usually because of l ow back pain. He is not exercising regularly. In the winter he has not been very active. Now that the weather is better, he has been walking more. He has to drive down a hill to walk. He will walk around the park by the [place] a couple of times, he goes about 1/2 mi le or so. He does not cough chronically, though he had the cough earlier this month. He has not had hemoptysis. He has been evaluated for nocturnal oxygen and does not use it. He is supposed to be on thi s, but has declined it as he feels he cannot sleep with this on. Past Medical History Past Medical History Diagnosis Date COPD (chronic obstructive pulmonary disease) (HCC) Hyperlipidemia Hypertension Bundle branch block Tobacco use disorder Demand ischemia of myocardium (HCC) Supraventricular tachycardia severe Polycythemia (HCC) Impaired fasting glucose Cataracts, bilateral Elevated PSA 2013 negative biopsy Past Surgical History Past Surgical History Procedure Laterality Date Appendectomy 2003 Colonoscopy Prostate biopsy 2014 Social History: History Social History Marital Status: [...] None Social History Narrative Lives alone in [place]. His in 2013 from cancer. Allergies: Allergies Allergen Reactions Acetaminophen Hives Codeine Sulfate Nausea Only Hydrocodone Hives Tramadol Hives Medications: Outpatient Encounter Prescriptions as of 01/21/2015 Medication Sig Dispense Refill AEROCHAMBER Z-STAT PLUS [...] MG TABS Take 1 tablet by mouth nigh tly. lisinopril (PRINIVIL, ZESTRIL) 20 mg tablet Take 20 mg by mouth Daily. metoprolol tartrate (LOPRESSOR) 25 mg tablet Take 25 mg by mouth Daily. simvastatin (ZOCOR) 40 mg tablet Take 40 mg by mouth Daily. No facility-administered encounter medications on file as of 01/21/2015. Review of Systems: General: []Weight loss/gain (over 10 lbs) []Fever/chills/sweats []Night sweats EENT: []Hearing loss []Vision loss/change []Sinus congestion/nasal drainage []Nosebleeds [] Hoarseness Cardiac: []Chest pain []Palpitations/heart racing []Swelling of legs/ankles []Waking up at night s hort of breath Gastrointestinal: []Nausea/vomiting []Difficulty swallowing []Heartburn/acid reflux []Loss of appetite []Abdo mi pain Urologic: []Blood in urine []Frequent urination at night []Burning/painful urination []Difficulty wit h urination *He does note back pain when he leans over the table to work on his model airplanes. He is thinking about trying some stimulating device he saw on a TV ad. Objective BP 146/70 | Pulse 87 | Temp(Src) 37.1 C (98.8 F) (Temporal) | Ht 1.803 m (5' 11") | Wt 96.752 kg (213 lb 4.8 oz) | BMI 29.76 kg/m2 | SpO2 96% RA General Appearance: [...] rub or gallop Abdomen: Soft, non-tender, non-distended, mildly obese Extremities: No cyanosis, clubbing, trace bilateral lower extremity edema Pulses: Radial pulses 2+ and symmetric Skin: Warm and dry Lymph nodes: Cervical and supraclavicular nodes normal Data: Immunization History Administered Date(s) Administered INFLUENZA, TRIVALENT PRESERVATIVE FREE (PED/ADOL/ADULT) 07/12/2012, 07/25/2013, 014 PNEUMOCOCCAL POLYSACCHARIDE 23-VALENT (PPSV23) 10/11/2009 Assessment 1. COPD (chronic obstructive pulmonary disease) - Doing well on Symbicort twice daily, and with Duonebs as needed, which he takes 3-4 times daily depending on his activity. He has had 1 exacerbation in the last year, which was the first in some time. We will continue his cur rent regimen. 2. Tobacco abuse - Currently in remission, but he has relapsed frequently. We will continue to work on this. He has had a stressful few years with his dying and dealing with her medical bills from her cancer treatments. 3. 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 4. Need for vaccination with 13-polyvalent pneumococcal conjugate vaccine - Prevnar 13 give n today in accordance with updated guidelines. Plan 1.Continue on Symbicort 160 mcg 2 puffs inhaled twice daily. 2.Continue Duonebs as needed. 3.Continue to remain off of cigarettes. 4. Prevnar 13 given today in accordance with updated guidelines. 5. I encouraged him to continue to try to walk more. In particular, when he is active and o ut of the house, he is less inclined to smoke. 6. I did encourage him to consider a referral to the PMR clinic to discuss modalities for h is back pain, such as a TENs unit, injections or physical therapy so he can continue to work on his model airplanes. He was advised to call if new pulmonary symptoms were to develop. Return to clinic in 6 months, or sooner with concerns. CC: Ramon Mora Portions of this report were transcribed using voice recognition software. Every effort wa s made to ensure accuracy; however, inadvertent computerized scorekeeper errors may be pre sent. 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
--- OUTSIDE RECORDS SUMMARY | ~2020-07-26 | XMS | Clinical Summary ---
Demographics + + + | Address | [address] | | | [place] [address] | + + + | Home Phone [...] + + + | Author | [facility] | | | and [place] | + + + | Organization | [facility] | | [...] Team Providers + +------+ + | Care Advertiser Name | Role | Phone | + +------+ + | Ramon Mora DO | PCP | | + +------+ + Allergies + + + + + + | Active Allergy | Reactions | Severity | Noted | Comments | | | | | Date | | + + + + + + | Acetaminophen | Hives | | 12/20/20 | | | | | | 12 | | + + + + + + | Codeine Sulfate | Nausea Only | | | | + + + + + + | Hydrocodone | Hives | | 10/11/20 | | | | | | 12 | | + + + + + + | Tramadol | Hives | | 10/11/20 | | | | | | 12 | | + + + + + + Medications + + + +---------+------+------+-------+ | Medication | Sig | Dispensed | Refills | Star | End | Statu | | | | | | t | Date | s | | | | | | Date | | | + + + +---------+------+------+-------+ | aspirin (ASPIRIN | Take 81 mg by mouth | | 0 | 06/23 | | Activ | | LOW DOSE) 81 MG | Daily. | | | 01/09 | | e | | tablet | | | | 12 | | | + + + +---------+------+------+-------+ | lisinopril | Take 20 mg by mouth | | 0 | 09/1 | | Activ | | (PRINIVIL, ZESTRIL) | Daily. | | | 3/20 | | e | | 20 mg tablet | | | | 12 | | | + + + +---------+------+------+-------+ | AEROCHAMBER Z-STAT | Use as directed. | | 0 | 05/1 | | Activ | | PLUS (AEROCHAMBER) | | | | /20 | | e | | MISC | | | | 11 | | | + + + +---------+------+------+-------+ | metoprolol | Take 25 mg by mouth | | 0 | | | Activ | | tartrate (LOPRESSOR) | Daily. | | | | | e | | 25 mg tablet | | | | | | | + + + +---------+------+------+-------+ | | Take 3 mLs by | | 0 | | | Activ | | albuterol-ipratropiu | nebulization Every 4 | | | | | e | | m (DUONEB) 2.5-0.5 | hours. | | | | | | | mg/3 mL SOLN | | | | | | | + + + +---------+------+------+-------+ | simvastatin | Take 40 mg by mouth | | 0 | 09/1 | | Activ | | (ZOCOR) 40 mg tablet | Daily. | | | 3/20 | | e | | | | | | 12 | | | + + + +---------+------+------+-------+ | | Take 1 tablet by | | 0 | | | Activ | | Ibuprofen-Diphenhydr | mouth nightly. | | | | | e | | amine Cit (IBUPROFEN | | | | | | | | PM) 200-38 MG TABS | | | | | | | + + + +---------+------+------+-------+ | | Inhale 2 puffs into | 1 | 5 | 09/0 | | Activ | | budesonide-formotero | the lungs 2 times | Inhaler | | 3/20 | | e | | l (SYMBICORT) 80-4.5 | daily. | | | 15 | | | | mcg/puff inhaler | | | | | | | + + + +---------+------+------+-------+ | PROAIR HFA 108 (90 | INHALE TWO PUFFS BY | 1 | 3 | 04/2 | | Activ | | BASE) MCG/ACT | MOUTH EVERY 4 HOURS | Inhaler | | 6/20 | | e | | inhaler | NEEDED SHORTNESS | | | 16 | | | | | OF BREATH | | | | | | + + + +---------+------+------+-------+ Active Problems + + + | Problem | Noted Date | + + + | Nocturnal hypoxemia due to emphysema | 01/23/2014 | + + + | Polycythemia | 01/23/2014 | + + + | Hyperlipidemia | 07/25/2013 | + + + | Hypertension | 07/25/2013 | + + + | COPD (chronic obstructive pulmonary disease) | | + + + | UNSPECIFIED SLEEP DISTURBANCE | | + + + + + | Overview: ICD-10 Record update | + + + +---+ | Tobacco abuse | | + +---+ | Impaired fasting glucose | | + +---+ Immunizations + + + + | Name | Administration Dates | Next Due | + + + + | INFLUENZA PF 18 Y OR | 07/07/2014, 07/25/2013, 07/12/2012 | | | >,TRIVALENT | | | | RECOMBINANT | | | + + + + | PNEUMOCOCCAL | 01/21/2015 | | | CONJUGATE 13-VALENT | | | | (PCV13) | | | + + + + | PNEUMOCOCCAL | 10/11/2009 | | | POLYSACCHARIDE | | | | 23-VALENT (PPSV23) | | | + + + + Family History + + +------+ + | Medical History | Relation | Name | Comments | + + +------+ + | Lung cancer | Brother | | | + + +------+ + | Other (see comment) | Father | | Black lung diseae | + + +------+ + | Parkinsonism | Father | | | + + +------+ + | Other (see comment) | Mother | | pneumonia | + + +------+ + | Colon cancer | Sister | | | + + +------+ + | Cancer | | | Aunt-Bone cancer | + + +------+ + + +------+--------+ + | Relation | Name | Status | Comments | + +------+--------+ + | Brother | | | | + +------+--------+ + | Father | | | | + +------+--------+ + | Mother | | | | + +------+--------+ + | Sister | | | | + +------+--------+ + Social History + + + +--------+ [...] Yes; Counseling Given: Yes | | Comments: He had relapsed, He had [...] on file | | + + + Last Filed Vital Signs + + + [...] | | + + + + + Plan of Treatment + + + + + | Health Maintenance | Due Date | Last | Comments | | | | Done | | + + + + + | Vaccine: | | | | | Dtap/Tdap/Td (1 - | 8 | | | | Tdap) | | | | + + + + + | Vaccine: Zoster (1 | | | | | of 2) | 9 | | | + + + + + | Primary Care | | 08/12/20 | | | Outreach (Intense | 6 | 15, | | | Risk) | | 01/22/20 | | | | | 15, | | | | | 07/24/20 | | | | | 14, | | | | | Addition | | | | | al | | | | | history | | | | | exists | | + + + + + | Vaccine: Influenza | | 07/07/20 | | | (#1) | 0 | 14, | | | | | 07/25/20 | | | | | 13, | | | | | 07/12/20 | | | | | 12 | | + + + + + | Vaccine: | Completed | 01/22/20 | | | Pneumococcal 65+ | | 15, | | | | | 10/11/20 | | | | | 09 | | + + + + + Results Not on filefrom Last 3 Months Insurance + +--------+ +--------+ +---------+--------+ | Payer | Benefi | Subscriber | Effect | Phone | Address | Type | | | t Plan | ID | christine | | | | | | / | | Dates | | | | | | Group | | | | | | + +--------+ +--------+ +---------+--------+ | MEDICARE | MEDICA | [id number] | 10/23/19 | [phone] | | Medica | | | RE | | 13-Pre | 5 | | re | | | PART A | | sent | | | | | | AND B | | | | | | + +--------+ +--------+ +---------+--------+ | [employer] | TRANSA | [id number] | 11/23/19 | | | Indemn | | INSURANCE | MERICA | | 15-Pre | | | ity | | | LIFE | | sent | | | | | | [place] | | | | | | + +--------+ +--------+ +---------+--------+ + +--------+ +--------+ + + | Guarantor Name | Accoun | Relation to | Date | Phone | Billing Address | | | t Type | Patient | of | | | | | | | | | | + +--------+ +--------+ + + | Louie Méndez | Person | Self [birth year] | [address] | | | al/Fam | | 1941 | [phone] | [place] [address] | | | elizabeth | | | 9 (Home) | | + +--------+ +--------+ + + Advance Directives + + + + + | Type | Date Recorded | Patient | Explanation | | | | Hospital Recruiter | | + + + + + | Power of | | | | | Linux Consultant | | | | + + + + + | Advance | | | | | Directive | | | | + + + + +
--- OUTSIDE RECORDS SUMMARY | ~2020-07-26 | XMS | Encounter Summary ---
Demographics + + + | Address | [address] | | | [place] [address] | + + + | Home Phone | | + + + | Preferred Language | Unknown | + + + | Marital Status | | + + + | Jehovah'S Witness Affiliation | 1077 | + + + | Race | White | + + + | Ethnic Group | Not or | + + + Author + + + | Author | [facility] | | | and [place] | + + + | Organization | [facility] | | | [...] Team Providers + +------+ + | Care Special Services Director Name | Role | Phone | + +------+ + | Ramon Mora DO | PCP | | + +------+ + Reason for Visit + +--------+ + | Reason | Onset | Comments | | | Date | | + +--------+ + | Medication Refill | 06/17/ | | | | 2012 | | + +--------+ + Encounter Details +--------+--------+ + + + | Date | Type | Department | Care Team | Description | +--------+--------+ + + + | 06/17/ | Refill | [facility] [place] | Offenstein, | Medication Refill | | 2012 | | PULMONARY [address] | Katherin Manrique MD | | | | | [place], | | | | | | [place] [address] | | | | | | [phone] | | | +--------+--------+ + + + [...]
--- OUTSIDE RECORDS SUMMARY | ~2020-07-26 | XMS | Encounter Summary ---
Demographics + + + | Address | [address] | | | [place] [address] | + + + | Home Phone | | + + + | Preferred Language | Unknown | + + + | Marital Status | | + + + | Anabaptist Affiliation | 1077 | + + + | Race | White | + + + | Ethnic Group | Not or | + + + Author + + + | Author | [facility] | | | and [place] | + + + | Organization | [facility] | | | [...] Team Providers + +------+ + | Care Circus Train Supervisor Name | Role | Phone | + +------+ + | Ramon Mora DO | PCP | | + +------+ + Reason for Visit + +--------+ + | Reason | Onset | Comments | | | Date | | + +--------+ + | Medication Refill | 08/06/ | | | | 2013 | | + +--------+ + Encounter Details +--------+--------+ + + + | Date | Type | Department | Care Team | Description | +--------+--------+ + + + | 08/06/ | Refill | [facility] [place] | Offenstein, | Medication Refill | | 2013 | | [address]ULMONARY [address] | Katherin Manrique MD | | | | | [place], | | | | | | [place] [address] | | | | | | [phone] | | | +--------+--------+ + + + [...]
--- OUTSIDE RECORDS SUMMARY | ~2020-07-26 | XMS | Encounter Summary ---
Demographics + + + | Address | [address] | | | [place] [address] | + + + | Home Phone | | + + + | Preferred Language | Unknown | + + + | Marital Status | | + + + | Baptist Affiliation | 1077 | + + + | Race | White | + + + | Ethnic Group | Not or | + + + Author + + + | Author | [facility] | | | and [place] | + + + | Organization | [facility] | | [...] Team Providers + +------+ + | Care Cardiopulmonary Technologist Name | Role | Phone | + +------+ + | Ramon Mora DO | PCP | | + +------+ + Reason for Visit +--------+--------+ + | Reason | Onset | Comments | | | Date | | +--------+--------+ + | Other | 07/29/ | | | | 2012 | | +--------+--------+ + Encounter Details +--------+ + + + + | Date | Type | Department | Care Team | Description | +--------+ + + + + | 07/29/ | Telephone | [facility] [place] | Renuka Espinoza, | Other | | 2012 | | [address]ULMONARY [address] | RN | | | | | [place], | | | | | | [place] [address] | | | | | | [phone] | | | +--------+ + + + [...] + + documented as of this encounter Miscellaneous Notes Telephone Encounter - Renuka Yanes RN - 07/29/2013 1:26 PM PDTFaxed Inter[facility] report to Dr Mora per instruction from Dr. Madden showing increase in HCT documented in this encounter Plan of Treatment Not on filedocumented as of this encounter Visit Diagnoses Not on filedocumented in this encounter"
--- OUTSIDE RECORDS SUMMARY | ~2020-07-26 | XMS | Encounter Summary ---
Demographics + + + | Address | [address] | | | [place] [address] | + + + | Home Phone | | + + + | Preferred Language | Unknown | + + + | Marital Status | | + + + | Mu-Ism Affiliation | 1077 | + + + | Race | White | + + + | Ethnic Group | Not or | + + + Author + + + | Author | [facility] | | | and [place] | + + + | Organization | [facility] | | | [...] Team Providers + +------+ + | Care Turner Splitter Machine Operator Name | Role | Phone [...] + | 10/11/ | Office | [facility] [place] | Offenstein, | COPD (chronic | | 2011 | Visit | [address]ULMONARY [address] | Katherin Manrique MD | obstructive | | | | [place], | | pulmonary disease) | | | | [place] [address] | | (HCC) (Primary Dx); | | | | [phone] | | Tobacco abuse; | | | [...] your behavior and peer support. Call the [facility] Quitline for more information. 513-LDZP-OPD (582-939-3315). Low-cost or free programs are offered by many hospitals, local chapters of the [place] [employer] (365-873-4438) a nd the [place] [employer] (107-637-0931). Support at home is important too. Non-smokers can help by offering praise and encouragement. If the smoker fails to quit, encourage them to try again! [id number]-[id number] MEDICINES: For those who can't quit on [...] such as bupropion (Zyban, Wellbutrin), varenicline (Chantix, [place] ix), a niocotine inhaler or nasal spray. [...] smoking, visit the following links: National Cancer [place] , Clearing the Air, Quit Smoking Today - an online yu klet. http://www.smokefree.gov/pubs/clearing_the_air.pdf Smokefree.gov http://smokefree.gov/ QuitNet http://www.quitnet.com/ 7247-1633 [facility], [address] [place] [address], [place] [address]. All rights reserve d. This information is [...] C OPD. He was recently hospitalized at [facility] for 2 days and was discharged on Sep. He has not been seen here in about 2 years, but was arranged to be seen in [facility] after his discharge. He reports that he is doing great since his discharge and is back to his baseline state. He had not followed up due to his having recurrent cancer. He was discharged on oxygen, which was new to him. He was taken off of the daytime oxygen b y Dr. Davison yesterday. He was not walked in clinic yesterday by Dr. Davison or his staff to see if he desaturated with exertion. He was apparently left on nocturnal oxygen only. He guillermo arently did not write an order to the home oxygen company, which is [employer]. He also apparen tly stopped his diltiazem, [...] but reports that he is in the [facility] right now. Currently they are able [...] He notes t he generic patches at [facility] work well for him. He notes that [...] until 10/11/2013 | | | | | ([facility]) | | + + +--------+ + + | Pulse oximetry, | Respiratory | Routin | COPD (chronic | Expected: | | overnight study | Care | e | obstructive | 10/12/2012, Expires: | | | | | pulmonary disease) | 10/11/2013 | | | | | ([facility]) | | + + +--------+ + + | Oxygen Therapy | Respiratory | Routin | COPD (chronic | Expected: | | | Care | e | obstructive | 10/16/2012, Expires: | | | | | pulmonary disease) | 10/16/2013 | | | | | ([facility]) | | + + +--------+ + + documented as of this encounter Visit Diagnoses + + | Diagnosis | + + | COPD (chronic obstructive pulmonary disease) ([facility]) - Primary Chronic airway | | obstruction, not elsewhere classified | + + | Tobacco abuse Tobacco use disorder | + + | Snoring Other dyspnea and respiratory abnormality | + + | Hypoxemia | + + documented in this encounter
--- OUTSIDE RECORDS SUMMARY | ~2020-07-26 | XMS | Encounter Summary ---
Demographics + + + | Address | [address] | | | [place] [address] | + + + | Home Phone | | + + + | Preferred Language | Unknown | + + + | Marital Status | | + + + | Mandaeism Affiliation | 1077 | + + + | Race | White | + + + | Ethnic Group | Not or | + + + Author + + + | Author | [facility] | | | and [place] | + + + | Organization | [facility] | | | [...] Team Providers + +------+ + | Care Ham Doctor Name | Role | Phone | + [...] RN | obstructive | | | | [place], | | pulmonary disease) | | | | [place] [address] | | (HCC) | | | | [phone] | | | +--------+ + + + [...]
--- OUTSIDE RECORDS SUMMARY | ~2020-07-26 | XMS | Encounter Summary ---
Demographics + + + | Address | [address] | | | [place] [address] | + + + | Home Phone [...] + + + | Author | [facility] | | | and [place] | + + + | Organization | [facility] | | | [...] Team Providers + +------+ + | Care Oracle Etl Developer Name | Role | Phone | + +------+ + | Ramon Mora DO | PCP | | + +------+ + Reason for Visit +---------+--------+ + | Reason | Onset | Comments | | | Date | | +---------+--------+ + | Results | 08/05/ | overnight oximetry | | | 2012 | | +---------+--------+ + Encounter Details +--------+ + + + + | Date | Type | Department | Care Team | Description | +--------+ + + + + | 08/05/ | Telephone | [facility] [place] | Aracelis Muir, | Results (overnight | | 2012 | | PULMONARY [address] | RN | oximetry) | | | | [place], | | | | | | [place] [address] | | | | | | [phone] | | | +--------+ + + + [...] this encounter Miscellaneous Notes Telephone Encounter - Aracelis Muir RN - 08/05/2013 4:32 PM PDTPer , the overnight oximetry performed on 08/02/13 on room air shows that the patient spent 5 minutes less than 88%. Dr. Madden recommended wearing oxygen 1 LPM at night and that the patien t have a repeat nocturnal oximetry on this amount. The results were communicated to the christophe ent. Louie chooses not to wear nocturnal O2 at this time. He states that he tried 3-4 times in September and was not able to tolerate it. He will call back if he changes his mind.Mckenna mahoney signed by Aracelis Muir RN at 08/05/2013 4:39 PM PDTdocumented in this encounter Plan of Treatment Not on filedocumented as of this encounter Visit Diagnoses Not on filedocumented in this encounter"
--- OUTSIDE RECORDS SUMMARY | ~2020-07-26 | XMS | Encounter Summary ---
Demographics + + + | Address | [address] | | | [place] [address] | + + + | Home Phone | | + + + | Preferred Language | Unknown | + + + | Marital Status | | + + + | Mormon Affiliation | 1077 | + + + | Race | White | + + + | Ethnic Group | Not or | + + + Author + + + | Author | [facility] | | | and [place] | + + + | Organization | [facility] | | | [...] Team Providers + +------+ + | Care Creative Services Producer Name | Role | Phone | + +------+ + | Ramon Mora DO | PCP | | + +------+ + Reason for Visit + +--------+ + | Reason | Onset | Comments | | | Date | | + +--------+ + | Medication Refill | 02/27/ | | | | 2012 | | + +--------+ + Encounter Details +--------+--------+ + + + | Date | Type | Department | Care Team | Description | +--------+--------+ + + + | 02/27/ | Refill | [facility] [place] | Offenstein, | Medication Refill | | 2012 | | PULMONARY [address] | Katherin Manrique MD | | | | | [place], | | | | | | [place] [address] | | | | | | [phone] | | | +--------+--------+ + + + [...] this encounter Miscellaneous Notes Telephone Encounter - Zandra De Leon RN - 02/27/2013 11:14 AM PDTAsks for Ventolin to be refilled. Sent electronically to [facility] per protocol. documented in this encounter Plan of Treatment Not on filedocumented as of this encounter Visit Diagnoses Not on filedocumented in this encounter"
--- OUTSIDE RECORDS SUMMARY | ~2020-07-26 | XMS | Encounter Summary ---
Demographics + + + | Address | [address] | | | [place] [address] | + + + | Home Phone | | + + + | Preferred Language | Unknown | + + + | Marital Status | | + + + | Catholic Affiliation | 1077 | + + + | Race | White | + + + | Ethnic Group | Not or | + + + Author + + + | Author | [facility] | | | and [place] | + + + | Organization | [facility] | | | and [...] Team Providers + +------+ + | Care Oncology Rn Name | Role | Phone | + +------+ + | Ramon Mora DO | PCP | | + +------+ + Reason for Visit +--------+--------+ + | Reason | Onset | Comments | | | Date | | +--------+--------+ + | Other | 01/08/ | | | | 2012 | | +--------+--------+ + Encounter Details +--------+ + + + + | Date | Type | Department | Care Team | Description | +--------+ + + + + | 01/08/ | Telephone | [facility] [place] | Aracelis Muir, | Other | | 2012 | | [address]ULMONARY [address] | RN | | | | | [place], | | | | | | [place] [address] | | | | | | [phone] | | | +--------+ + + + [...] Telephone Encounter - Aracelis Muir RN - 01/08/2013 11:10 AM [facility] and advised per Dr Madden that the insurance asked to change the Ventolin inhaler to ProAir. Domonique Palma. docuangela in this encounter Plan of Treatment Not on filedocumented as of this encounter Visit Diagnoses Not on filedocumented in this encounter"
--- OUTSIDE RECORDS SUMMARY | ~2020-07-26 | XMS | Encounter Summary ---
Demographics + + + | Address | [address] | | | [place] [address] | + + + | Home Phone | | + + + | Preferred Language | Unknown | + + + | Marital Status | | + + + | Sabianism Affiliation | 1077 | + + + | Race | White | + + + | Ethnic Group | Not or | + + + Author + + + | Author | [facility] | | | and [place] | + + + | Organization | [facility] | | | [...] Team Providers + +------+ + | Care Banana Carrier Name | Role | Phone | + [...] | obstruction, not | | | | [place], | | elsewhere classified | | | | [place] [address] | | ([facility]) | | | | [phone] | | | +--------+ + + + [...]
--- OUTSIDE RECORDS SUMMARY | ~2020-07-26 | XMS | Encounter Summary ---
Demographics + + + | Address | [address] | | | [place] [address] | + + + | Home Phone | | + + + | Preferred Language | Unknown | + + + | Marital Status | | + + + | Rastafarian Affiliation | 1077 | + + + [...] Team Providers + +------+ + | Care Consulting Solution Director Name | Role | Phone | + +------+ + | Ramon Mora DO | PCP | | + +------+ + Encounter Details +--------+ + + + + | Date | Type | Department | Care Team | Description | +--------+ + + + + | 11/26/ | Documentati | [facility] | [place], | | | 2012 | on | PULMONARY [address] | Katherin Manrique MD | | | | | [place], | | | | | | [place] [address] | | | | | | [phone] | | | +--------+ + + + [...] as of this encounter Progress Notes Aracelis Muir RN - 11/26/2012 2:30 PM PSTAs the [...]
--- OUTSIDE RECORDS SUMMARY | ~2020-07-26 | XMS | Encounter Summary ---
Demographics + + + | Address | [address] | | | [place] [address] | + + + | Home Phone | | + + + | Preferred Language | Unknown | + + + | Marital Status | | + + + | Taoism Affiliation | 1077 | + + + | Race | White | + + + | Ethnic Group | Not or | + + + Author + + + | Author | [facility] | | | and [place] | + + + | Organization | [facility] | | [...] Providers + +------+ + | Care Software Manager Name | Role | Phone | [...] Manrique MD | | | | | [place], | | | | | | [place] [address] | | | | | | [phone] | | | +--------+--------+ + + + [...]
--- OUTSIDE RECORDS SUMMARY | ~2020-07-26 | XMS | Encounter Summary ---
Demographics + + + | Address | [address] | | | [place] [address] | + + + | Home Phone | | + + + | Preferred Language | Unknown | + + + | Marital Status | | + + + | Amish Affiliation | 1077 | + + + | Race | White | + + + | Ethnic Group | Not or | + + + Author + + + | Author | [facility] | | | and [place] | + + + | Organization | [facility] | | [...] Team Providers + +------+ + | Care Outdoor Guide Name | Role | Phone | + +------+ + | Ramon Mora DO | PCP | | + +------+ + Encounter Details +--------+ + + + + | Date | Type | Department | Care Team | Description | +--------+ + + + + | 07/29/ | Orders Only | [facility] [place] | Omarenstein, | Chronic airway | | 2012 | | PULMONARY [address] | Katherin Manrique MD | obstruction, not | | | | [place], | | elsewhere classified | | | | [place] [address] | | ([facility]) (Primary Dx) | | | | [phone] | | | +--------+ + + + [...] | 07/29/2014 | | | | | ([facility]) | | + + +--------+ + + documented as of this encounter Visit Diagnoses + + | Diagnosis | + + | Chronic airway obstruction, not elsewhere classified - Primary | + + documented in this encounter"
--- OUTSIDE RECORDS SUMMARY | ~2020-07-26 | XMS | Encounter Summary ---
Demographics + + + | Address | [address] | | | [place] [address] | + + + | Home Phone | | + + + | Preferred Language | Unknown | + + + | Marital Status | | + + + | Tenriism Affiliation | 1077 | + + + | Race | White | + + + | Ethnic Group | Not or | + + + Author + + + | Author | [facility] | | | and [place] | + + + | Organization | [facility] | | [...] Team Providers + +------+ + | Care Exhibit Technician Name | Role | Phone | [...] + | 08/12/ | Office | [facility] | Off[place], | COPD (chronic | | 2014 | Visit | [address]ULMONARY [address] | Katherin Manrique MD | obstructive | | | | [place] [facility], | | pulmonary disease); | | | | [place] [address] | | Nocturnal hypoxemia | | | | [phone] | | due to emphysema | | | | | | ([facility]); Tobacco abuse | +--------+---------+ [...] having relapsed again. He also travelled to [place] for his niece's wedding and did not [...] None Social History Narrative Lives alone in [place]. His in 2012 from cancer. Allergies: Allergies Allergen Reactions Acetaminophen Hives Codeine Sulfate Nausea Only Hydrocodone Hives Tramadol Hives Medications: Outpatient Encounter Prescriptions as of 08/12/2015 Medication Sig Dispense Refill AEROCHAMBER Z-STAT PLUS (AEROCHAMBER) [facility] Use as directed. albuterol (PROAIR HFA) 90 [...] 492.8 He has qualified for oxygen at [facility] and declines this. G47.36 327.26 3. Tobacco [...] lined up for winter, working on his [employer], to keep him busy. Plan 1.Continue Symbicort [...] made to ensure accuracy; however, inadvertent computerized mechanical cad drafter errors may be pre sent. Electronically signed [...]
--- OUTSIDE RECORDS SUMMARY | ~2020-07-26 | XMS | Encounter Summary ---
Demographics + + + | Address | [address] | | | [place] [address] | + + + | Home Phone | | + + + | Preferred Language | Unknown | + + + | Marital Status | | + + + | Mormonism Affiliation | 1077 | + + + | Race | White | + + + | Ethnic Group | Not or | + + + Author + + + | Author | [facility] | | | and [place] | + + + | Organization | [facility] | | | [...] Team Providers + +------+ + | Care Permit Specialist Name | Role | Phone | [...] | Refill | [facility] | Omarenstein, | Medication Refill | | 2015 | | [address]MON[address] | Katherin Manrique MD | | | | | [place], | | | | | | [place] [address] | | | | | | [phone] | | | +--------+--------+ + + + [...]
--- OUTSIDE RECORDS SUMMARY | ~2020-07-26 | XMS | Encounter Summary ---
Demographics + + + | Address | [address] | | | [place] [address] | + + + | Home Phone [...] Author | [facility] | | | and [place] | + + + | Organization | [facility] | | | [...] Team Providers + +------+ + | Care Track Inspector Name | Role | Phone | + [...] | obstruction, not | | | | [place], | | elsewhere classified | | | | [place] [address] | | ([facility]) | | | | [phone] | | | +--------+ + + + [...]
--- OUTSIDE RECORDS SUMMARY | ~2020-07-26 | XMS | Encounter Summary ---
Demographics + + + | Address | [address] | | | [place] [address] | + + + | Home Phone | | + + + | Preferred Language | Unknown | + + + | Marital Status | | + + + | Mandaeism Affiliation | 1077 | + + + | Race | White | + + + | Ethnic Group | Not or | + + + Author + + + | Author | [facility] | | | and [place] | + + + | Organization | [facility] | | | and [...] Team Providers + +------+ + | Care Bobbin Winder Tender Name | Role | Phone | + [...] + + | 10/02/ | Office | [facility] | [place], | COPD (chronic | | 2013 | Visit | [address]ULMONARY [address] | Katherin Manrique MD | obstructive | | | | [place], | | pulmonary disease) | | | | [place] [address] | | (Primary Dx); | | | | [phone] | | 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 albuterol (PROAIR HFA) 90 [...] made to ensure accuracy; however, inadvertent computerized game manager errors may be pre sent. Electronically signed [...]
--- OUTSIDE RECORDS SUMMARY | ~2020-07-26 | XMS | Encounter Summary ---
Demographics + + + | Address | [address] | | | [place] [address] | + + + | Home Phone | | + + + | Preferred Language | Unknown | + + + | Marital Status | | + + + | Confucianist Affiliation | 1077 | + + + | Race | White | + + + | Ethnic Group | Not or | + + + Author + + + | Author | [facility] | | | and [place] | + + + | Organization | [facility] | | | [...] Team Providers + +------+ + | Care Contour Stitcher Name | Role | Phone | + +------+ + | Ramon Mora DO | PCP | | + +------+ + Reason for Visit + + + | Reason | Comments | + + + | Follow-up | 3 month, COPD | + + + Encounter Details +--------+---------+ + + + | Date | Type | Department | Care Team | Description | +--------+---------+ + + + | 01/01/ | Office | [facility] | [place], | COPD (chronic | | 2012 | Visit | [address]ULMONARY [address] | Katherin Manrique MD | obstructive | | | | [place], | | pulmonary disease) | | | | [place] [address] | | (HCC) (Primary Dx); | | | | [phone] | | Tobacco abuse; | | | | | | Nocturnal hypoxemia | +--------+---------+ + + + Social History [...] + | Tobacco Cessation: Ready to Quit: No; Counseling Given: Yes | | Comments: He has been smoking some. [...] + + + | Blood Pressure | 128/70 | 01/01/2013 2:59 PM | | | | | PDT | | + + + + + | Pulse | 98 | 01/01/2013 2:59 PM | | | | | PDT | | + + + + + | Temperature | - | - | | + + + + + | Respiratory Rate | 18 | 01/01/2013 2:59 PM | | | | | PDT | | + + + + + | Oxygen Saturation | 95% | 01/01/2013 2:59 PM | | | | | PDT | | + + + + + | Inhaled Oxygen | - | - | | | Concentration | | | | + + + + + | Weight | 102.5 kg (226 lb) | 01/01/2013 2:59 PM | | | | | PDT | | + + + + + | Height | 180.3 cm (5' 11") | 01/01/2013 2:59 PM | | | | | PDT | | + + + + + | Body Mass Index | 31.52 | 01/01/2013 2:59 PM | | | | | PDT | | + + + + + documented in this encounter Patient Instructions Patient Instructions Katherin Madden MD - 01/01/2013 3:35 PM PDTStop Combivent and Atrovent. Start albuterol (either Ventolin, ProAir, or Proventil) as needed with Aerochamber (the pratik stic tube). Stay on DuoNebs and Symbicort as before. documented in this encounter Progress Notes Katherin Madden MD - 01/01/2013 3:09 PM PDTFormatting of this note might be differe nt from the original. Pulmonary Follow Up Note HPI Louie Méndez is a 72 y.o. male patient of Ramon Mora here today for follow up of C OPD. At their last visit, we had ordered Advair, but his insurance provided Symbicort instead. Anabelle mora is using 2 puffs twice a day. He is also using Duonebs and Combivent as well as Atrovent. He uses the Combivent only rarely and the Atrovent infrequently. He does use the Duoneb four times a day. Since their last visit he feels like he has been doing much better. He has n ot had any acute illnesses. He does feel like this medication regimen is working for them. They return today for routine follow up. He feels like he can breathe better, sleep better, do more. Currently they are able to walk maybe 1/4 mile at their own pace on level ground. His low b ack and hips limit him a lot. He is not exercising regularly. He does cough chronically, and does produce mucous. He does not know what color it is. He h as not had hemoptysis. He has been evaluated for nocturnal oxygen and does not use it. On his last oximetry he spe nt 11 minutes with a saturation less than 88%. There also appeared to be a fair amount of ar tifact on the study. He also had been recently discharged from the hospital at the time of harley. Past Medical History Past Medical History Diagnosis [...] Topics Smoking status: Current Everyday Smoker -- 0.6 packs/day for 60 years Types: Cigarettes Smokeless tobacco: Never Used Comment: He has been smoking some. Alcohol Use: None Drug Use: None Sexually Active: None Other Topics Concern None Social History Narrative None Allergies: Allergies Allergen Reactions Acetaminophen Codeine Sulfate Hydrocodone Tramadol Medications: Outpatient Encounter Prescriptions as of 01/01/2013 Medication Sig Dispense Refill ipratropium (ATROVENT HFA) 17 mcg/puff inhaler Inhale 2 puffs into the lungs every 6 ho urs as needed. budesonide-formoterol (SYMBICORT) 80-4.5 mcg/puff inhaler Inhale 2 puffs into the lungs 2 times daily. metoprolol tartrate (LOPRESSOR) 25 mg tablet Take 25 mg by mouth Daily. albuterol-ipratropium (DUONEB) 2.5-0.5 mg/3 mL SOLN Take 3 mLs by nebulization Every 4 hours. simvastatin (ZOCOR) 40 mg tablet Take 20 mg by mouth Daily. aspirin (ASPIRIN LOW DOSE) 81 MG tablet Take 81 mg by mouth Daily. lisinopril (PRINIVIL, ZESTRIL) 20 mg tablet Take 20 mg by mouth Daily. AEROCHAMBER Z-STAT PLUS (AEROCHAMBER) MISC Use as directed. albuterol-ipratropium (COMBIVENT) 103-18 mcg/puff inhaler Inhale 2 puffs into the lungs every 6 hours as needed. Review of Systems Constitutional: Denies fever, chills, sweats. He has lost 4 pounds. Sleep: Denies difficulty sleeping, excessive snoring, and daytime sleepiness. Eyes: Denies vision change and eye irritation. ENT: Denies earache, decreased hearing, nasal congestion, nosebleeds, sore throat, and carolee rseness. Resp: See HPI. CV: Denies chest pain, palpitations, syncope, and peripheral edema. GI: Denies heartburn, nausea, vomiting, and abdominal pain. : Denies difficulty emptying bladder and nocturia. Objective BP 128/70 | Pulse 98 | Resp 18 | Ht 1.803 m (5' 11") | Wt 102.513 kg (226 lb) | BMI 31.52 k g/m2 | SpO2 95% General Appearance: Alert, cooperative, no distress, appears stated age, smells strongly o f tobacco smoke Head: Normocephalic, without obvious abnormality, atraumatic Eyes: PERRL, conjunctiva clear, no scleral icterus, EOM's intact Ears: Normal TM's, external auditory canals, and acuity Nose: Nares normal, septum midline, mucosa normal, no drainage Mouth: No oral lesions or exudate, somewhat dry mucous membranes Neck: Supple, symmetrical, no adenopathy Lungs: No accessory muscle use, breath sounds are diminished bilaterally with prolongatio n of the expiratory phase, no wheezes, crackles or rhonchi Chest Wall: No deformity Heart: Regular rate and rhythm, no murmur, rub or gallop Abdomen: Soft, non-tender, non-distended Extremities: No cyanosis, clubbing, or edema Pulses: Radial pulses 1+ and symmetric Skin: Warm and dry Lymph nodes: Cervical and supraclavicular nodes normal Data: Overnight oximetry was performed on October 21, 2012 and showed a saturation less than 88% for 11 minutes. Immunization History Administered Date(s) Administered INFLUENZA, PRESERVATIVE FREE IM 07/12/2012 Pneumococcal (Adult) 10/11/2009 Assessment /Plan Mr. Méndez was seen today for follow-up of COPD. Diagnoses and associated orders for this visit: Copd (chronic obstructive pulmonary disease) He has been fairly stable since last seen. He feels like the Symbicort helps a lot. I did s uggest streamlining his other inhalers and we will stop the Atrovent and Combivent and Atrov ent, and he can use Duonebs scheduled with albuterol as needed. - Discontinue: ipratropium (ATROVENT HFA) 17 mcg/puff inhaler; Inhale 2 puffs into the lung s every 6 hours as needed. - albuterol (VENTOLIN HFA) 90 mcg/puff inhaler; Inhale 2 puffs into the lungs every 6 hours as needed for Wheezing or Shortness of Breath. Tobacco abuse We discussed quitting plans. He has had a lot of stress of recurrence of his 's cancer. He would like to work towards quitting again. He wants to do this of his own accord. Nocturnal hypoxemia He has minimal nocturnal hypoxemia and though he technically met Medicare criteria, he was only less than 88% for 11 minutes of the night. We discussed the issue and he wants to stay off the oxygen. It should be noted that this was also done shortly after he was hospitalized for pneumonia, and he should continue to increase some. - discontinue nocturnal oxygen Return to clinic in 6 months, or sooner with concerns. CC: Ramon Mora documented in t his encounter Plan of Treatment Not on filedocumented as of this encounter Visit Diagnoses + + | Diagnosis | + + | COPD (chronic obstructive pulmonary disease) (HCC) - Primary Chronic airway | | obstruction, not elsewhere classified | + + | Tobacco abuse Tobacco use disorder | + + | Nocturnal hypoxemia Hypoxemia | + + documented in this encounter
--- OUTSIDE RECORDS SUMMARY | ~2020-07-26 | XMS | Encounter Summary ---
Demographics + + + | Address | [address] | | | [place] [address] | + + + | Home Phone | | + + + | Preferred Language | Unknown | + + + | Marital Status | | + + + | Rastafari Affiliation | 1077 | + + + | Race | White | + + + | Ethnic Group | Not or | + + + Author + + + | Author | [facility] | | | and [place] | + + + | Organization | [facility] | | | [...] Team Providers + +------+ + | Care Ultrasound Tester Name | Role | Phone | + [...] MD | obstructive | | | | [place], | | pulmonary disease) | | | | [place] [address] | | (Primary Dx); | | | | [phone] | | Nocturnal hypoxemia; | | | [...] had to make a hurried trip to [facility]. He is th only one in [...] made to ensure accuracy; however, inadvertent computerized cigarette packing machine operator errors may be pre sent. Electronically signed [...]
--- OUTSIDE RECORDS SUMMARY | ~2020-07-26 | XMS | Encounter Summary ---
Demographics + + + | Address | [address] | | | [place] [address] | + + + | Home Phone [...] | Author | [facility] | | | and [place] | + + + | Organization | [facility] | | [...] Team Providers + +------+ + | Care Logistician Name | Role | Phone | + [...] | obstruction, not | | | | [place], | | elsewhere classified | | | | [place] [address] | | ([facility]) | | | | [phone] | | | +--------+ + + + [...]
--- OUTSIDE RECORDS SUMMARY | ~2020-07-26 | XMS | Encounter Summary ---
Demographics + + + | Address | [address] | | | [place] [address] | + + + | Home Phone [...] Author | [facility] | | | and [place] | + + + | Organization | [facility] | | | and [...] Team Providers + +------+ + | Care Event Sales Assistant Name | Role | Phone | [...] | obstruction, not | | | | [place], | | elsewhere classified | | | | [place] [address] | | ([facility]) | | | | [phone] | | | +--------+ + + + [...]
--- OUTSIDE RECORDS SUMMARY | ~2020-07-26 | XMS | Encounter Summary ---
Demographics + + + | Address | [address] | | | [place] [address] | + + + | Home Phone | | + + + | Preferred Language | Unknown | + + + | Marital Status | | + + + | Taoist Affiliation | 1077 | + + + | Race | White | + + + | Ethnic Group | Not or | + + + Author + + + | Author | [facility] | | | and [place] | + + + | Organization | [facility] | | | and [...] Team Providers + +------+ + | Care Metallurgical Engineer Name | Role | Phone | + +------+ + | Ramon Mora DO | PCP | | + +------+ + Reason for Visit + +--------+ + | Reason | Onset | Comments | | | Date | | + +--------+ + | Medication Refill | 03/23/ | | | | 2014 | | + +--------+ + Encounter Details +--------+--------+ + + + | Date | Type | Department | Care Team | Description | +--------+--------+ + + + | 03/23/ | Refill | [facility] [place] | Omarenstein, | Medication Refill | | 2014 | | [address]UL[address] | Katherin Manrique MD | | | | | [place], | | | | | | [place] [address] | | | | | | [phone] | | | +--------+--------+ + + + [...]
--- OUTSIDE RECORDS SUMMARY | ~2020-07-26 | XMS | Encounter Summary ---
Demographics + + + | Address | [address] | | | [place] [address] | + + + | Home Phone | | + + + | Preferred Language | Unknown | + + + | Marital Status | | + + + | Adventist Affiliation | 1077 | + + + | Race | White | + + + | Ethnic Group | Not or | + + + Author + + + | Author | [facility] | | | and [place] | + + + | Organization | [facility] | | | and [...] Team Providers + +------+ + | Care Garment Folder Name | Role | Phone | + [...] | SR | | | | | [place] | | | | | | [place], [place] | | | | | | [address] | | | | | | [phone] | | | +--------+ + + + [...]
--- OUTSIDE RECORDS SUMMARY | ~2020-07-26 | XMS | Encounter Summary ---
Demographics + + + | Address | [address] | | | [place] [address] | + + + | Home Phone [...] Team Providers + +------+ + | Care Bottom Sander Name | Role | Phone | + [...] Manrique MD | | | | | [place], | | | | | | [place] [address] | | | | | | [phone] | | | +--------+--------+ + + + [...]
--- OUTSIDE RECORDS SUMMARY | ~2020-07-26 | XMS | Clinical Summary ---
Demographics + + + | Address | [address] | | | [place] [address] | + + + | Home Phone | | + + + | Preferred Language | Unknown | + + + | Marital Status | | + + + | Yazidism Affiliation | 1077 | + + + | Race | White | + + + | Ethnic Group | Not or | + + + Author + + + | Author | [facility] | | | and [place] | + + + | Organization | [facility] | | | [...] Team Providers + +------+ + | Care Leasing Professional Name | Role | Phone | + [...] +--------+ +---------+--------+ | MEDICARE | MEDICA | [id number] | 10/23/19 | [phone] | | Medica | | | RE | | 13-Pre | 5 | | re | | | PART A | | sent | | | | | | AND B | | | | | | + +--------+ +--------+ +---------+--------+ | [employer] | TRANSA | [id number] | 11/23/19 | | | Indemn | [...] | | 1941 | [phone] | [place] [address] | | | elizabeth | | | 9 (Home) | | + +--------+ +--------+ + + Advance Directives + + + + + | Type | Date Recorded | Patient | Explanation | | | | [employer] | | + + + + + | Power of | | | | | [employer] | | | | + + + + + | Advance | | | | | Directive | | | | + + + + +
--- OUTSIDE RECORDS SUMMARY | ~2020-07-26 | XMS | Encounter Summary ---
Demographics + + + | Address | [address] | | | [place] [address] | + + + | Home Phone | | + + + | Preferred Language | Unknown | + + + | Marital Status | | + + + | Buddhist Affiliation | 1077 | + + + [...] Team Providers + +------+ + | Care Staff Assistant Name | Role | Phone | + +------+ + | Ramon Mora DO | PCP | | + +------+ + Reason for Visit +--------+--------+ + | Reason | Onset | Comments | | | Date | | +--------+--------+ + | Other | 11/29/ | | | | 2012 | | +--------+--------+ + Encounter Details +--------+ + + + + | Date | Type | Department | Care Team | Description | +--------+ + + + + | 11/29/ | Telephone | [facility] [place] | Aracelis Muir, | Other | | 2012 | | [address]ULMONARY [address] | RN | | | | | [place], | | | | | | [place] [address] | | | | | | [phone] | | | +--------+ + + + [...] Telephone Encounter - Aracelis Muir RN - 11/29/2012 1:51 PM PSTCalled Louie and relayed this information. He chooses to have the nocturnal O2 discontinued at this time.Gemma bernard signed by Aracelis Muir RN at 11/29/2012 1:54 PM PSTTelephone Encounter - Katherin Sethi MD - 11/29/2012 1:30 PM PSTI leave it a little up to him. In a time period of 7 hours and 15 minutes, he had a saturation of less than 89% for about 24 minutes toal. He meets Medicare criteria for the oxygen, but with the newer printouts, it is hard to tell if this is just erroneous data. If he would like, we can try taking him off of it, and recheck in 6 months. We can then discuss at him follow up appointment. elephone Encounter - Aracelis Muir RN - 11/29/2012 9:14 AM PSTCalled asking if an order can be sent to discontinue his O2. Advised on 10/26 that his nocturnal oximetry on room air looked good. documented in this encounter Plan of Treatment + + [...] until 11/29/2013 | | | | | (HCC) | | + + +--------+ + + documented as of this encounter Visit Diagnoses + + | Diagnosis | + + | Chronic airway obstruction, not elsewhere classified - Primary | + + documented in this encounter"
--- OUTSIDE RECORDS SUMMARY | ~2020-07-26 | XMS | Encounter Summary ---
Demographics + + + | Address | [address] | | | [place] [address] | + + + | Home Phone | | + + + | Preferred Language | Unknown | + + + | Marital Status | | + + + | Adventist Affiliation | 1077 | + + + | Race | White | + + + | Ethnic Group | Not or | + + + Author + + + | Author | [facility] | | | and [place] | + + + | Organization | [facility] | | [...] Team Providers + +------+ + | Care Environmental Consultant Name | Role | Phone | [...] RN | obstructive | | | | [place], | | pulmonary disease) | | | | [place] [address] | | (HCC) | | | | [phone] | | | +--------+ + + + [...]
--- OUTSIDE RECORDS SUMMARY | ~2020-07-26 | XMS | Encounter Summary ---
Demographics + + + | Address | [address] | | | [place] [address] | + + + | Home Phone | | + + + | Preferred Language | Unknown | + + + | Marital Status | | + + + | Methodist Affiliation | 1077 | + + + | Race | White | + + + | Ethnic Group | Not or | + + + Author + + + | Author | [facility] | | | and [place] | + + + | Organization | [facility] | | | [...] Team Providers + +------+ + | Care Programmer Operator Numerical Control Name | Role | Phone | + [...] | RN | | | | | [place], | | | | | | [place] [address] | | | | | | [phone] | | | +--------+ + + + [...] Aracelis Muir RN - 01/08/2013 11:10 AM Serneity Palma and advised per Dr Madden that the insurance asked to change the Ventolin inhaler to ProAir. Domonique Palma. docuangela in this encounter Plan of Treatment Not on filedocumented as of this encounter Visit Diagnoses Not on filedocumented in this encounter"
--- OUTSIDE RECORDS SUMMARY | ~2020-07-26 | XMS | Encounter Summary ---
Demographics + + + | Address | [address] | | | [place] [address] | + + + | Home Phone [...] Author + + + | Author | [facility] | | | and [place] | + + + | Organization | [facility] | | [...] Team Providers + +------+ + | Care General Ophthalmologist Name | Role | Phone | + [...] Manrique MD | | | | | [place], | | | | | | [place] [address] | | | | | | [phone] | | | +--------+--------+ + + + [...]
--- OUTSIDE RECORDS SUMMARY | ~2020-07-26 | XMS | Encounter Summary ---
Demographics + + + | Address | [address] | | | [place] [address] | + + + | Home Phone | | + + + | Preferred Language | Unknown | + + + | Marital Status | | + + + | Evangelical Affiliation | 1077 | + + + | Race | White | + + + | Ethnic Group | Not or | + + + Author + + + | Author | [facility] | | | and [place] | + + + | Organization | [facility] | [...] Team Providers + +------+ + | Care Field Cane Scaler Name | Role | Phone | + [...] RN | obstructive | | | | [place], | | pulmonary disease) | | | | [place] [address] | | (HCC) | | | | [phone] | | | +--------+ + + + [...]
--- OUTSIDE RECORDS SUMMARY | ~2020-07-26 | XMS | Encounter Summary ---
Demographics + + + | Address | [address] | | | [place] [address] | + + + | Home Phone [...] | Author | [facility] | | | and [place] | + + + | Organization | [facility] | | | [...] Team Providers + +------+ + | Care Chair Installer Name | Role | Phone | + [...] | RN | | | | | [place], | | | | | | [place] [address] | | | | | | [phone] | | | +--------+ + + + [...]
--- OUTSIDE RECORDS SUMMARY | ~2020-07-26 | XMS | Encounter Summary ---
Demographics + + + | Address | [address] | | | [place] [address] | + + + | Home Phone [...] Team Providers + +------+ + | Care Larder Cook Name | Role | Phone | + [...] | | | | | KHOI MCKEON [facility] | | | | | | [place], [place] | | | | | | [address] | | | | | | [phone] | | | +--------+ + + + [...]
--- OUTSIDE RECORDS SUMMARY | ~2020-07-26 | XMS | Encounter Summary ---
Demographics + + + | Address | [address] | | | [place] [address] | + + + | Home Phone [...] Team Providers + +------+ + | Care Mud Analysis Supervisor Name | Role | Phone | [...] | | | | | | [place] [address] | | | | | | [phone] | | | +--------+ + + + [...]
--- OUTSIDE RECORDS SUMMARY | ~2020-07-26 | XMS | Encounter Summary ---
Demographics + + + | Address | [address] | | | [place] [address] | + + + | Home Phone | | + + + | Preferred Language | Unknown | + + + | Marital Status | | + + + | Latter-Day Affiliation | 1077 | + + + | Race | White | + + + | Ethnic Group | Not or | + + + Author + + + | Author | [facility] | | | and [place] | + + + | Organization | [facility] | | | and [...] Team Providers + +------+ + | Care Reproduction Production Manager Name | Role | Phone | + +------+ + | Ramon Mora DO | PCP | | + +------+ + Reason for Visit +--------+ + | Reason | Comments | +--------+ + | COPD | | +--------+ + Encounter Details +--------+---------+ + + + | Date | Type | Department | Care Team | Description | +--------+---------+ + + + | 10/03/ | [facility] | [facility] | [place], | COPD (chronic | | 2013 | Visit | PULMONARY [address] | Katherin Manrique MD | obstructive | | | | [place], | | pulmonary disease) | | | | [place] [address] | | ([facility]) (Primary Dx); | | | | [phone] | | Nicotine addiction; | | | [...] PDTPlease have your la bs done at [facility], we will give you the orders [...] from the original. Pulmonary Follow Up Note Katherin Madden MD [place] [facility] [address] [place], [address] HPI Louie Méndez is a 72 y.o. [...] use it. He was lasted tested in [facility] of last year. He notes that he has been smoking more lately. He did backslid after his in , which was very stressful. She had been battling her 5th primary cancer, and finally decid ed against chemotherapy in . He was up to 1.5 ppd, and is back down to 1 ppd. He is planning on resuming the patch this week. He notes that he is looking forward to clarisaaz lino the money he saved from not smoking [...] Sig Dispense Refill AEROCHAMBER Z-STAT PLUS (AEROCHAMBER) [facility] Active Use as directed. albuterol (PROAIR HFA) [...] quite some time for screening labs (years neil e believes). I asked him to make [...] He has not had recent labs, including senior chemist cristina. I discussed that there is some risk to bed bug exterminator NSAID use, without monitoring his hubert al [...] made to ensure accuracy; however, inadvertent computerized extrusion utility worker errors may be pre sent. documented in [...]
--- OUTSIDE RECORDS SUMMARY | ~2020-07-26 | XMS | Encounter Summary ---
Demographics + + + | Address | [address] | | | [place] [address] | + + + | Home Phone [...] [facility] | | | and [place] | + [...] Providers + +------+ + | Care Environmental Field Professional Name | Role | Phone | [...] + + | 10/03/ | [facility] | [facility] | [place], | COPD (chronic | | 2013 | Visit | PULMONARY [address] | Katherin Manrique MD | obstructive | | | | [place], | | pulmonary disease) | | | | [place] [address] | | ([facility]) (Primary Dx); | | | | [phone] | | Nicotine addiction; | | | [...] PDTPlease have your la bs done at [facility], we will give you the orders to [...] Pulmonary Follow Up Note Katherin Madden MD [place] [facility] [address] [place], [address] HPI Louie Méndez is a 72 y.o. [...] use it. He was lasted tested in [facility] of last year. He notes that [...] Sig Dispense Refill AEROCHAMBER Z-STAT PLUS (AEROCHAMBER) [facility] Active Use as directed. albuterol (PROAIR HFA) [...] He has not had recent labs, including adjunct instructor chemistry cristina. I discussed that there is some risk to superintendent terminal NSAID use, without monitoring his hubert al [...] made to ensure accuracy; however, inadvertent computerized enamel applier errors may be pre sent. documented in [...]
--- OUTSIDE RECORDS SUMMARY | ~2020-07-26 | XMS | Encounter Summary ---
Demographics + + + | Address | [address] | | | [place] [address] | + + + | Home Phone | | + + + | Preferred Language | Unknown | + + + | Marital Status | | + + + | Yarsanism Affiliation | 1077 | + + + [...] Team Providers + +------+ + | Care Cart Attendant Name | Role | Phone | + [...] MD | obstructive | | | | [place], | | pulmonary disease) | | | | [place] [address] | | (HCC) (Primary Dx); | | | | [phone] | | Tobacco abuse; | | | [...] your behavior and peer support. Call the [facility] Quitline for more information. 372-QFOW-BYX ([phone]). Low-cost or free programs are offered by many hospitals, local chapters of the [place] [employer] (165-872-9805) a nd the [employer] (734-100-4129). Support at home is important too. Non-smokers can help by offering praise and encouragement. If the smoker fails to quit, encourage them to try again! UYLI-HRZ-CFFSAZX MEDICINES: For those who can't quit on [...] such as bupropion (Zyban, Wellbutrin), varenicline (Chantix, La Bajada ix), a niocotine inhaler or nasal spray. [...] smoking, visit the following links: National Cancer [place] , Clearing the Air, Quit Smoking Today - an online yu klet. http://www.smokefree.gov/pubs/clearing_the_air.pdf Smokefree.gov http://smokefree.gov/ QuitNet http://www.quitnet.com/ 3017-[address] [facility], [address] [place] [address], [place] [address]. All rights reserve d. This information is [...] C OPD. He was recently hospitalized at [facility] for 2 days and was discharged on Sep. He has not been seen here in about 2 years, but was arranged to be seen in [facility] after his discharge. He reports that [...] to the home oxygen company, which is [employer]. He also apparen tly stopped his diltiazem, [...] but reports that he is in the [facility] hole right now. Currently they are able [...] He notes t he generic patches at [facility] work well for him. He notes that [...] until 10/11/2013 | | | | | ([facility]) | | + + +--------+ + + | Pulse oximetry, | Respiratory | Routin | COPD (chronic | Expected: | | overnight study | Care | e | obstructive | 10/12/2012, Expires: | | | | | pulmonary disease) | 10/11/2013 | | | | | ([facility]) | | + + +--------+ + + | Oxygen Therapy | Respiratory | Routin | COPD (chronic | Expected: | | | Care | e | obstructive | 10/16/2012, Expires: | | | | | pulmonary disease) | 10/16/2013 | | | | | ([facility]) | | + + +--------+ + + documented as of this encounter Visit Diagnoses + + | Diagnosis | + + | COPD (chronic obstructive pulmonary disease) ([facility]) - Primary Chronic airway | | obstruction, not elsewhere classified | + + | Tobacco abuse Tobacco use disorder | + + | Snoring Other dyspnea and respiratory abnormality | + + | Hypoxemia | + + documented in this encounter
--- OUTSIDE RECORDS SUMMARY | ~2020-07-26 | XMS | Encounter Summary ---
Demographics + + + | Address | [address] | | | [place] [address] | + + + | Home Phone | | + + + | Preferred Language | Unknown | + + + | Marital Status | | + + + | Baptism Affiliation | 1077 | + + + | Race | White | + + + | Ethnic Group | Not or | + + + Author + + + | Author | [facility] | | | and [place] | + + + | Organization | [facility] | | [...] Team Providers + +------+ + | Care Tapper Supervisor Name | Role | Phone | [...] | RN | | | | | [place], | | | | | | [place] [address] | | | | | | [phone] | | | +--------+ + + + [...]
--- OUTSIDE RECORDS SUMMARY | ~2020-07-26 | XMS | Encounter Summary ---
Demographics + + + | Address | [address] | | | [place] [address] | + + + | Home Phone | | + + + | Preferred Language | Unknown | + + + | Marital Status | | + + + | Bahai Affiliation | 1077 | + + + | Race | White | + + + | Ethnic Group | Not or | + + + Author + + + | Author | [facility] | | | and [place] | + + + | Organization | [facility] | | [...] Team Providers + +------+ + | Care Processing Tech Name | Role | Phone | + [...] Manrique MD | | | | | [place], | | | | | | [place] [address] | | | | | | [phone] | | | +--------+--------+ + + + [...] Ventolin to be refilled. Sent electronically to [facility] per protocol. documented in this encounter Plan of Treatment Not on filedocumented as of this encounter Visit Diagnoses Not on filedocumented in this encounter"
--- OUTSIDE RECORDS SUMMARY | ~2020-07-26 | XMS | Encounter Summary ---
Demographics + + + | Address | [address] | | | [place] [address] | + + + | Home Phone [...] + + | Author | [facility] | | | and [place] | + + + | Organization | [facility] | | | and [...] Team Providers + +------+ + | Care Sledger Name | Role | Phone | + [...] Manrique MD | | | | | [place], | | | | | | [place] [address] | | | | | | [phone] | | | +--------+--------+ + + + [...]
--- OUTSIDE RECORDS SUMMARY | ~2020-07-26 | XMS | Encounter Summary ---
Demographics + + + | Address | [address] | | | [place] [address] | + + + | Home Phone [...] | Author | [facility] | | | and [place] | + + + | Organization | [facility] | | | [...] Team Providers + +------+ + | Care Rock Wool Insulator Name | Role | Phone | + [...] RN | oximetry) | | | | [place], | | | | | | [place] [address] | | | | | | [phone] | | | +--------+ + + + [...]
--- OUTSIDE RECORDS SUMMARY | ~2020-07-26 | XMS | Encounter Summary ---
Demographics + + + | Address | [address] | | | [place] [address] | + + + | Home Phone | | + + + | Preferred Language | Unknown | + + + | Marital Status | | + + + | Confucianism Affiliation | 1077 | + + + [...] Team Providers + +------+ + | Care Gas Producer Name | Role | Phone | + +------+ + PCP | Unavailable | + +------+ + Encounter Details +--------+ + + + + | Date | Type | Department | Care Team | Description | +--------+ + + + + | 03/08/ | Hospital | [facility] | [place], | | | 2010 | Encounter | MED CTR XRAY [address] | Katherin Manrique MD | | | | | [place] | | | | | | [place] [address] | | | | | | [phone] | | | +--------+ + + + [...] Performed At | + + + | [facility] Department | [facility] | | [address] [facility] | [facility] | | [facility] CHEST CLINICAL | [...] Transcribed Date/Time: 03/08/2011 16:44 | | | Humanities Professor: <Electronically Signed by Ranjan Yeager | | | MD Hitesh> 03/09/11 0735 | | + + + + + | Procedure Note | + + | Hans, Rad Conversion - 11/29/2013 2:57 PM [facility] | | Diagnostic Imaging Department [address] [place] [address] | | TWO VIEW CHEST CLINICAL HISTORY: [...] 14:37 | |Transcribed Date/Time: 03/08/2011 16:44 | |Humanities Professor: | |<Electronically Signed by Ranjan Proctor MD> 03/09/11 0735 | + + + +---------+ + + | Performing | Address | City/State/Zipcode | Phone Number | | Organization | | | | + +---------+ + + | [place] | | | | | [facility] | | | | + +---------+ + + documented in this encounter Visit Diagnoses Not on filedocumented in this encounter"
--- OUTSIDE RECORDS SUMMARY | ~2020-07-26 | XMS | Encounter Summary ---
Demographics + + + | Address | [address] | | | [place] [address] | + + + | Home Phone [...] | Author | [facility] | | | and [place] | + + + | Organization | [facility] | | | [...] Team Providers + +------+ + | Care Chute Feeder Name | Role | Phone | + +------+ + | Ramon Mora DO | PCP | | + +------+ + Reason for Visit +--------+--------+ + | Reason | Onset | Comments | | | Date | | +--------+--------+ + | Other | 10/26/ | | | | 2012 | | +--------+--------+ + Encounter Details +--------+ + + + + | Date | Type | Department | Care Team | Description | +--------+ + + + + | 10/26/ | Telephone | [facility] [place] | Aracelis Muir, | Other | | 2012 | | PULMONARY [address] | RN | | | | | [place], | | | | | | [place] [address] | | | | | | [phone] | | | +--------+ + + + [...] Telephone Encounter - Aracelis Muir RN - 10/26/2012 3:30 PM PSTCalled Louie and advised per Dr Madden that his overnight oximetry on room air looks good. Okay per patient.Elec tronically signed by Aracelis Muir RN at 10/26/2012 3:31 PM PSTdocumented in this encou nter Plan of Treatment Not on filedocumented as of this encounter Visit Diagnoses Not on filedocumented in this encounter"
--- OUTSIDE RECORDS SUMMARY | ~2020-07-26 | XMS | Encounter Summary ---
Demographics + + + | Address | [address] | | | [place] [address] | + + + | Home Phone [...] + | Author | [facility] | | | and [place] | + + + | Organization | [facility] | | | and [...] Team Providers + +------+ + | Care Digital Photographic Printer Name | Role | Phone | + [...] | RN | | | | | [place], | | | | | | [place] [address] | | | | | | [phone] | | | +--------+ + + + [...]
--- OUTSIDE RECORDS SUMMARY | ~2020-07-26 | XMS | Encounter Summary ---
Demographics + + + | Address | [address] | | | [place] [address] | + + + | Home Phone [...] Team Providers + +------+ + | Care Fluid Dynamicist Name | Role | Phone | + [...] + | 01/01/ | Office | [facility] | [place], | COPD (chronic | | 2012 | Visit | PULMONARY [address] | Katherin Manrique MD | obstructive | | | | [place], | | pulmonary disease) | | | | [place] [address] | | (HCC) (Primary Dx); | | | | [phone] | | Tobacco abuse; | | | [...]
--- OUTSIDE RECORDS SUMMARY | ~2020-07-26 | XMS | Encounter Summary ---
Demographics + + + | Address | [address] | | | [place] [address] | + + + | Home Phone [...] Team Providers + +------+ + | Care Circulation Crew Leader Name | Role | Phone | + [...] Manrique MD | | | | | [place], | | | | | | [place] [address] | | | | | | [phone] | | | +--------+--------+ + + + [...]
--- OUTSIDE RECORDS SUMMARY | ~2020-07-26 | XMS | Encounter Summary ---
Demographics + + + | Address | [address] | | | [place] [address] | + + + | Home Phone [...] Team Providers + +------+ + | Care Firewall Engineer Name | Role | Phone | [...] | obstruction, not | | | | [place], | | elsewhere classified | | | | [place] [address] | | ([facility]) (Primary Dx) | | | | [phone] | | | +--------+ + + + [...] | 07/29/2014 | | | | | ([facility]) | | + + +--------+ + + documented as of this encounter Visit Diagnoses + + | Diagnosis | + + | Chronic airway obstruction, not elsewhere classified - Primary | + + documented in this encounter"
--- OUTSIDE RECORDS SUMMARY | ~2020-07-26 | XMS | Encounter Summary ---
Demographics + + + | Address | [address] | | | [place] [address] | + + + | Home Phone [...] | [facility] | | | and [place] | + + + | Organization | [facility] | | | and [...] Team Providers + +------+ + | Care Floor Coverings Salesperson Name | Role | Phone | + [...] + | 01/21/ | Office | [facility] | [place], | COPD (chronic | | 2014 | Visit | PULMONARY [address] | Katherin Manrique MD | obstructive | | | | [place], | | pulmonary disease); | | | | [place] [address] | | Tobacco abuse; | | | | [phone] | | Nocturnal hypoxemia | | | [...] None Social History Narrative Lives alone in [place]. His in 2013 from cancer. Allergies: Allergies [...] made to ensure accuracy; however, inadvertent computerized pilot boat operator errors may be pre sent. Electronically [...]
--- OUTSIDE RECORDS SUMMARY | ~2020-07-26 | XMS | Encounter Summary ---
Demographics + + + | Address | [address] | | | [place] [address] | + + + | Home Phone [...] Author | [facility] | | | and [place] | + + + | Organization | [facility] | | | and [...] Providers + +------+ + | Care Insurance And Benefits Clerk Name | Role | Phone | + +------+ + PCP | Unavailable | + +------+ + Encounter Details +--------+ + + + + | Date | Type | Department | Care Team | Description | +--------+ + + + + | 03/08/ | Hospital | [facility] | [place], | | | 2010 | Encounter | MED CTR XRAY [address] | Katherin Manrique MD | | | | | [place] | | | | | | [place] [address] | | | | | | [phone] | | | +--------+ + + + [...] Performed At | + + + | [facility] Diagnostic Imaging Department | [facility] | | [address] [facility] | [facility] | | TWO VIEW CHEST [...] Transcribed Date/Time: 03/08/2011 16:44 | | | Electrotherapist: <Electronically Signed by Ranjan Yeager | | | MD Hitesh> 03/09/11 0735 | | + + + + + | Procedure Note | + + | Hans, Rad Conversion - 11/29/2013 2:57 PM [facility] | | Diagnostic Imaging Department [address] [place] [address] | | TWO VIEW CHEST CLINICAL HISTORY: [...] 14:37 | |Transcribed Date/Time: 03/08/2011 16:44 | |Electrotherapist: | |<Electronically Signed by Ranjan Proctor MD> 03/09/11 0735 | + + + +---------+ + + | Performing | Address | City/State/Zipcode | Phone Number | | Organization | | | | + +---------+ + + | [place] | | | | | [facility] | | | | + +---------+ + + documented in this encounter Visit Diagnoses Not on filedocumented in this encounter"
--- OUTSIDE RECORDS SUMMARY | ~2020-07-26 | XMS | Encounter Summary ---
Demographics + + + | Address | [address] | | | [place] [address] | + + + | Home Phone [...] Team Providers + +------+ + | Care Whipper Beater Name | Role | Phone | + [...] Manrique MD | | | | | [place], | | | | | | [place] [address] | | | | | | [phone] | | | +--------+--------+ + + + [...]
[~2020-07-26 09:21] MED LIST changes: +MEDROL4 M1 PO
--- NOTE | 2020-07-26 13:38 | EKG ---
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
--- NOTE | 2020-07-26 15:05 | NUR ---
Medications reconciled
--- NOTE | 2020-07-26 15:54 | NUR ---
New admit to the floor. Pt awake, alert and oriented x4. Pt is on 2L of oxygen per nc, respirations non labored. Pt denies pain at this time. Vitals are stable. Pt has no needs at this time. Personal supplies and call light within reach. Pt encouarged to call staff when he is in need of assistance.
--- NOTE | 2020-07-26 16:57 | NUR ---
Patient resting at this time, eyes closed, respirations even and non labored. Pt is on 2l oxygen per nc. Bed alarm intact. Call light within reach.
--- NOTE | 2020-07-26 17:31 | NUR ---
PATIENT RESTING IN BED. VITAL SIGNS AND I&O DONE. PATIENT'S DINNER ORDERED. ICE WATER GIVEN. CALL LIGHT WITHIN REACH. NO OTHER NEEDS AT THIS TIME
--- NOTE | 2020-07-26 19:41 | NUR ---
SHIFT REPORT FROM NURSE KEYS. PT SITTING AT BEDSIDE FINISHING DINNER. PT REPORTS HE MUST URINATE. ASSISTED PT WITH URINAL. PT HAVING TROUBLE INITIATING URINE FLOW. MAGAZINE REPAIRER TO STAY WITH PT TO CONTINUE WITH URINATION.
--- NOTE | 2020-07-26 19:49 | NUR ---
pt stated he needed to use the restroom, sitting on the bedside with urnial, unable to go, he laid back and started dry heaving, no emesis, pt given a cool wash rag, re-adjusted higher in the bed. call light in place, asked pt to call if he was feeling naueous again and he agreed "okay, mommy" and chuckled.
--- NOTE | 2020-07-26 21:15 | NUR ---
ASSESSMENT COMPLETE. SPO2 99% ALTHOUGH PT IS BREATHING HARD. 2L PER NC. RT INFORMED THAT PT WOULD LIKE TO DO PRN NEB TREATMENT PT REPORTS HE PERFORMS THESE AT HOME. PT REMAINS TACHY AT 100+. TELE READS AFIB RYTHYM STILL. PT REPORTS NO PAIN. WILL CONTINUE TO MONITOR. CALL LIGHT WITHIN REACH.
--- NOTE | 2020-07-26 22:36 | NUR ---
ANSWERED CALL LIGHT, PT STATING WANTING TO AMBULATE TO BR TO VOID. ASSISTED BY RODNEY VITALE AND THIS RN. PT UNSTEADY ON FEET. DISCUSSED WITH PT USING BSC OR URINAL, PT REFUSED. WHEN BACK TO BED PT STATED HE WAS DIZZY AND NAUSEOUS, EMESIS BAG AND COOL CLOTH PROVIDED. PT STATED SYMPTOMS SUBSIDED, LAYING BACK IN BED WITH LIGHTS OFF. CALL LIGHT IN REACH. PT STATES NO OTHER NEEDS AT THIS POINT IN TIME.
--- NOTE | 2020-07-26 23:08 | NUR ---
CHECKED ON PT. PT SLEEPING WITH EVEN HARSH BREATHING. RT WAS IN ROOM EARLIER AND PERFORMED A BREATHING TREATMENT. NASAL CANNULA ON AT 2L. CALL LIGHT WITHIN REACH.
--- NOTE | 2020-07-27 01:20 | NUR ---
SPO2 CHECK. SPO2 99% ON 2L PER NC. PT SLEPT THROUGH SPO2 CHECK. NO APPARENT SIGNS OF DISTRESS.
--- NOTE | 2020-07-27 01:46 | NUR ---
CALL LIGHT ANSWERED. PT UP TO BSC WITH 1PA. PT BACK TO BED, VS PERFORMED. NO FURTHER NEEDS AT THIS TIME.
--- NOTE | 2020-07-27 02:20 | NUR ---
ROUNDED ON PATIENT. LAYING IN BED, EYES CLOSED, LIGHTS OFF. BREATHING EVEN AND UNLABORED. O2 VIA NC ON 2L. PT APPEARS TO BE TOLERATING O2 WELL. BED ALARM ON. CALL LIGHT WITHIN REACH.
--- NOTE | 2020-07-27 03:37 | NUR ---
ANSWERED CALL LIGHT, PT REQUESTED NEB TX, REFUSED MDI OFFERED. RN BEGAN NEB TX AT 329, SIGN PLACED ON DOOR TO REMIND STAFF OF USING PPE POST AEROSOLIZING PROCEDURE UNTIL 438. RT AWARE.
--- NOTE | 2020-07-27 06:40 | NUR ---
ASSESSMENT COMPLETE. PT UP TO BSC WITH SBA. GOOD URINE OUTPUT OF CONCENTRATED URINE. PT RETURNED TO BED. CALL LIGHT WITHIN REACH
--- NOTE | 2020-07-27 06:47 | NUR ---
PT REPORTS THAT HE DOES NEBULIZER TREATMENTS Q4H AT HOME. PT REQUESTED PRN NEB TREATMENT ALTHOUGH DECLINED MDI TREATMENT. PT C/O OF RIGHT SIDED PAIN "JUST LIKE LAST NIGHT" WHICH WAS WHAT BROUGHT HIM TO THE ED. PT SLEPT WELL ALTHOUGH DID HAVE NOTED LABORED BREATHING. PT REMAINS IN A-FIB RYTHYM.
--- NOTE | 2020-07-27 08:07 | NUR ---
Pt awake sitting up in bed watching TV. Pt alert and oriented x4. Pt is on 2L nc. Pt denies chest pain. Breakfast ordered. Pt has no needs. Persponal supplies and call light within reach.
== END 2020-07-27 10:50 | disposition home or self-care (01) ==
LOC: ED 09:21 → MS 09:23
PROVIDERS: ADMIT Internal Medicine; ATTEND Internal Medicine
DX: J93.83 Other pneumothorax (principal); J44.9 Chronic obstructive pulmonary disease, unspecified; J84.10 Pulmonary fibrosis, unspecified; I48.20 Chronic atrial fibrillation, unspecified; E78.5 Hyperlipidemia, unspecified; F17.210 Nicotine dependence, cigarettes, uncomplicated; Z20.828 Contact with and (suspected) exposure to other viral communicable diseases; Z79.899 Other long term (current) drug therapy; Z79.82 Long term (current) use of aspirin; Z88.5 Allergy status to narcotic agent; Z88.1 Allergy status to other antibiotic agents
CPT/HCPCS: 71045; 71260; 80053; 83735; 83880; 84484; 85025; 85610; 85730; 90662; 93005; 93010; 94760; 96374; 96376; 99285-25; C9803; G0008; G0378; J2270; Q9967; U0003